=== PATIENT | male | born 1985 | race Caucasian/White ===

== ENCOUNTER 2022-10-28 07:22 | Outpatient (REF) | payer OTHER, SELFPAY ==
--- NOTE | ~2022-10-28 | XR_ITS ---
EXAMINATION: XR ANKLE, LEFT XR FOOT, LEFT XR ANKLE, RIGHT XR FOOT, RIGHT CLINICAL INFORMATION: Arthropathic psoriasis COMPARISON: None TECHNIQUE: 2 views of the left ankle. 3 views of the left foot. 2 views of the right ankle. 3 views of the right foot. FINDINGS: Left ankle: No fracture or dislocation. The ankle mortise is congruent. Mild spurring along the ankle mortise. No osseous erosion. No ankle joint effusion. Plantar heel spur. The soft tissues are unremarkable. Left foot: No fracture or dislocation. Appropriate alignment. Joint spaces maintained. No osseous erosion. The soft tissues are unremarkable. Right ankle: No fracture or dislocation. The ankle mortise is congruent. Mild spurring along the ankle mortise. No ankle joint effusion. Plantar heel spur. The soft tissues are unremarkable. Right foot: No fracture or dislocation. Joint spaces are maintained. No osseous erosion. The soft tissues are unremarkable. XR/XR foot RT min 3V IMPRESSION: No acute abnormality of either foot or ankle. No osseous erosions. Mild spurring along the ankle mortise bilaterally. Plantar heel spurs.
--- NOTE | ~2022-10-28 | XR_ITS ---
EXAMINATION: XR ANKLE, LEFT XR FOOT, LEFT XR ANKLE, RIGHT XR FOOT, RIGHT CLINICAL INFORMATION: Arthropathic psoriasis COMPARISON: None TECHNIQUE: 2 views of the left ankle. 3 views of the left foot. 2 views of the right ankle. 3 views of the right foot. FINDINGS: Left ankle: No fracture or dislocation. The ankle mortise is congruent. Mild spurring along the ankle mortise. No osseous erosion. No ankle joint effusion. Plantar heel spur. The soft tissues are unremarkable. Left foot: No fracture or dislocation. Appropriate alignment. Joint spaces maintained. No osseous erosion. The soft tissues are unremarkable. Right ankle: No fracture or dislocation. The ankle mortise is congruent. Mild spurring along the ankle mortise. No ankle joint effusion. Plantar heel spur. The soft tissues are unremarkable. Right foot: No fracture or dislocation. Joint spaces are maintained. No osseous erosion. The soft tissues are unremarkable. XR/XR foot LT min 3V IMPRESSION: No acute abnormality of either foot or ankle. No osseous erosions. Mild spurring along the ankle mortise bilaterally. Plantar heel spurs.
--- NOTE | ~2022-10-28 | XR_ITS ---
EXAMINATION: XR HAND WRIST, LEFT XR HAND WRIST, RIGHT CLINICAL INFORMATION: Arthropathic psoriasis COMPARISON: None TECHNIQUE: 4 views of the left hand and wrist. 4 views of the right hand and wrist. FINDINGS: Left hand/wrist: No fracture or dislocation. The carpal rows are well aligned. The digits are appropriately aligned. Joint spaces are maintained. No osseous erosion. The soft tissues are unremarkable. Right hand/wrist: No fracture or dislocation. The carpal rows are well aligned. The digits are appropriately aligned. Joint spaces are maintained. No osseous erosion. The soft tissues are unremarkable. XR/XR hand wrist RT IMPRESSION: Normal appearance of both hands and wrists. No osseous erosion or significant arthritic change.
--- NOTE | ~2022-10-28 | XR_ITS ---
EXAMINATION: XR KNEE, LEFT CLINICAL INFORMATION: Arthropathic psoriasis COMPARISON: None TECHNIQUE: Three views of the left knee. FINDINGS: No fracture or subluxation. Compartmental joint spaces are maintained. No joint effusion. No osseous erosion. The soft tissues are unremarkable. XR/XR knee LT 3V IMPRESSION: Normal left knee.
--- NOTE | ~2022-10-28 | XR_ITS ---
EXAMINATION: XR ANKLE, LEFT XR FOOT, LEFT XR ANKLE, RIGHT XR FOOT, RIGHT CLINICAL INFORMATION: Arthropathic psoriasis COMPARISON: None TECHNIQUE: 2 views of the left ankle. 3 views of the left foot. 2 views of the right ankle. 3 views of the right foot. FINDINGS: Left ankle: No fracture or dislocation. The ankle mortise is congruent. Mild spurring along the ankle mortise. No osseous erosion. No ankle joint effusion. Plantar heel spur. The soft tissues are unremarkable. Left foot: No fracture or dislocation. Appropriate alignment. Joint spaces maintained. No osseous erosion. The soft tissues are unremarkable. Right ankle: No fracture or dislocation. The ankle mortise is congruent. Mild spurring along the ankle mortise. No ankle joint effusion. Plantar heel spur. The soft tissues are unremarkable. Right foot: No fracture or dislocation. Joint spaces are maintained. No osseous erosion. The soft tissues are unremarkable. XR/XR ankle RT min 3V IMPRESSION: No acute abnormality of either foot or ankle. No osseous erosions. Mild spurring along the ankle mortise bilaterally. Plantar heel spurs.
--- NOTE | ~2022-10-28 | XR_ITS ---
EXAMINATION: XR ANKLE, LEFT XR FOOT, LEFT XR ANKLE, RIGHT XR FOOT, RIGHT CLINICAL INFORMATION: Arthropathic psoriasis COMPARISON: None TECHNIQUE: 2 views of the left ankle. 3 views of the left foot. 2 views of the right ankle. 3 views of the right foot. FINDINGS: Left ankle: No fracture or dislocation. The ankle mortise is congruent. Mild spurring along the ankle mortise. No osseous erosion. No ankle joint effusion. Plantar heel spur. The soft tissues are unremarkable. Left foot: No fracture or dislocation. Appropriate alignment. Joint spaces maintained. No osseous erosion. The soft tissues are unremarkable. Right ankle: No fracture or dislocation. The ankle mortise is congruent. Mild spurring along the ankle mortise. No ankle joint effusion. Plantar heel spur. The soft tissues are unremarkable. Right foot: No fracture or dislocation. Joint spaces are maintained. No osseous erosion. The soft tissues are unremarkable. XR/XR ankle LT min 3V IMPRESSION: No acute abnormality of either foot or ankle. No osseous erosions. Mild spurring along the ankle mortise bilaterally. Plantar heel spurs.
--- NOTE | ~2022-10-28 | XR_ITS ---
EXAMINATION: XR HAND WRIST, LEFT XR HAND WRIST, RIGHT CLINICAL INFORMATION: Arthropathic psoriasis COMPARISON: None TECHNIQUE: 4 views of the left hand and wrist. 4 views of the right hand and wrist. FINDINGS: Left hand/wrist: No fracture or dislocation. The carpal rows are well aligned. The digits are appropriately aligned. Joint spaces are maintained. No osseous erosion. The soft tissues are unremarkable. Right hand/wrist: No fracture or dislocation. The carpal rows are well aligned. The digits are appropriately aligned. Joint spaces are maintained. No osseous erosion. The soft tissues are unremarkable. XR/XR hand wrist LT IMPRESSION: Normal appearance of both hands and wrists. No osseous erosion or significant arthritic change.
[2022-10-28 08:31] LABS: MANUAL DIFF FLAG NO
[2022-10-28 08:53] LABS: Basophils Percent Auto 0.2 % (0-2); Eosinophils Absolute Auto 0.1 X10*3/uL (0.0-0.4); Eosinophils Percent Auto 0.7 % (0-4); Hematocrit 42.4 % (42.0-52.0); Hemoglobin 14.3 g/dl (14.0-18.0); Imm Gran Abs Auto 0.03 X10*3/uL (0.00-0.03); Imm Gran Pct Auto 0.3 % (0.0-0.4); Lymphocytes Absolute Auto 2.3 X10*3/uL (1.2-4.9); Lymphocytes Percent Auto 24.1 % (20-40); Mean Corpuscular HGB Conc 33.7 g/dl (31.0-36.0); Mean Corpuscular Volume 80.2 fL (80.0-98.0); Mean Platelet Volume 11.2 fL (9.4-12.4); Monocytes Absolute Auto 1.1 X10*3/uL (0.1-1.2); Monocytes Percent Auto 11.1 % (2-11); Neutrophils Percent Auto 63.6 % (45-73); Platelet Count 194 X10*3/uL (160-400); Red Blood Count 5.29 X10*6/uL (4.60-5.80); Red Cell Distribution Width 13.3 % (11.0-16.0); White Blood Count 9.4 X10*3/uL (4.8-10.8)
[2022-10-28 09:13] LABS: Estimated Average Glucose 105 mg/dL; Hemoglobin A1c % 5.3 %
[2022-10-28 09:25] LABS: Alanine Aminotransferase 34 U/L (0-40); Albumin Level 4.5 g/dL (3.5-5.0); Alkaline Phosphatase 95 U/L (39-117); Anion Gap 17 (12-20); Aspartate Amino Transferase 19 U/L (5-37); Bilirubin Total 1.4 mg/dL (0.0-1.0); Blood Urea Nitrogen 8 mg/dL (9-16); C Reactive Protein 4.26 mg/dL (< or = 0.50); Calcium 9.5 mg/dL (8.4-10.2); Carbon Dioxide 21 mmol/L (22-29); Chloride 107 mmol/L (96-108); Estimated Glomerular Filt Rate > 60; Glucose Random 121 mg/dL (60-115); Potassium 3.8 mmol/L (3.3-5.1); Sodium 141 mmol/L (135-145); Total Protein 7.1 g/dL (6.5-8.0)
[2022-10-29 08:09] LABS: HBc Num1 0.17 S/CO (0.00-0.79); HBsAGNum1 0.29 S/CO (0.00-0.99); Hepatitis A Antibody IgM 0.13 Index (0-0.79); Hepatitis B Core Antibody Nonreactive (Nonreactive); Hepatitis B Surface Antigen Negative (Negative); ~HepC Num1 0.31 S/CO (0.00-0.79); ~Hepatitis A Antibody IgM Nonreactive (Nonreactive); ~Hepatitis B Surface Antibody NONREACTIVE (Nonreactive); ~Hepatitis C Antibody Nonreactive (Nonreactive)
[2022-10-30 17:21] LABS: Cyclic Citrullinated Peptide <16 UNITS
[2022-10-30 17:23] LABS: IgA 105 mg/dL (47-310); IgG 1084 mg/dL (600-1640); IgM 41 mg/dL (50-300)
[2022-10-30 20:38] LABS: TS Negative Control Passed; TS Panel A 0; TS Panel B 0; TS Positive Control Passed; TSpotTB Negative (Negative)
[2022-10-31 17:24] LABS: Prot Elec - Albumin 4.3 g/dL (3.8-4.8); Prot Elec - Alpha1 0.4 g/dL (0.2-0.3); Prot Elec - Alpha2 0.9 g/dL (0.5-0.9); Prot Elec - Beta 1 0.4 g/dL (0.4-0.6); Prot Elec - Beta 2 0.3 g/dL (0.2-0.5); Prot Elec - Total Protein 7.3 g/dL (6.1-8.1)
== END 2022-10-28 07:23 | disposition home or self-care (01) ==
LOC: HO.XRAY 07:22
PROVIDERS: PCP Internal Medicine; Visit Provider Student in an Organized Health Care Education/Training Program
DX: Z11.59 Encounter for screening for other viral diseases (principal); Z13.1 Encounter for screening for diabetes mellitus; Z11.7 Encounter for testing for latent tuberculosis infection; L40.50 Arthropathic psoriasis, unspecified; M25.541 Pain in joints of right hand
CPT/HCPCS: 36415; 73110; 73130; 73562; 73610; 73630; 80053; 82784; 83036; 84165; 85025; 86140; 86200; 86334; 86481; 86704; 86706; 86709; 86803; 87340; 99202

== ENCOUNTER → 2022-12-26 08:41 | Outpatient (BNVA) | payer OTHER, SELFPAY | PROVIDERS: PCP Internal Medicine; Visit Provider Student in an Organized Health Care Education/Training Program | DX: M13.80 Other specified arthritis, unspecified site (principal); Z79.631 Long term (current) use of antimetabolite agent | CPT/HCPCS: 99212 ==

== ENCOUNTER 2023-02-11 07:03 | Outpatient (REF) | payer OTHER, SELFPAY ==
[2023-02-11 11:21] LABS: MANUAL DIFF FLAG NO
[2023-02-11 11:28] LABS: Basophils Percent Auto 0.4 % (0-2); Eosinophils Absolute Auto 0.3 X10*3/uL (0.0-0.4); Hematocrit 41.6 % (42.0-52.0); Hemoglobin 14.3 g/dl (14.0-18.0); Imm Gran Abs Auto 0.01 X10*3/uL (0.00-0.03); Imm Gran Pct Auto 0.2 % (0.0-0.4); Lymphocytes Absolute Auto 1.7 X10*3/uL (1.2-4.9); Lymphocytes Percent Auto 33.5 % (20-40); Mean Corpuscular HGB Conc 34.4 g/dl (31.0-36.0); Mean Corpuscular Hemoglobin 27.9 pg (27.0-33.0); Mean Corpuscular Volume 81.3 fL (80.0-98.0); Mean Platelet Volume 11.1 fL (9.4-12.4); Monocytes Absolute Auto 0.3 X10*3/uL (0.1-1.2); Monocytes Percent Auto 6.1 % (2-11); Neutrophils Absolute Auto 2.8 x10*3/uL (2.0-8.3); Neutrophils Percent Auto 54.8 % (45-73); Platelet Count 217 X10*3/uL (160-400); Red Blood Count 5.12 X10*6/uL (4.60-5.80); Red Cell Distribution Width 14.3 % (11.0-16.0); White Blood Count 5.1 X10*3/uL (4.8-10.8)
[2023-02-11 12:12] LABS: Erythrocyte Sedimentation Rate 18 MM/HR (0-15)
[2023-02-11 12:41] LABS: Alanine Aminotransferase 44 U/L (0-40); Albumin Level 4.4 g/dL (3.5-5.0); Alkaline Phosphatase 83 U/L (39-117); Anion Gap 14 (12-20); Aspartate Amino Transferase 23 U/L (5-37); Bilirubin Total 1.4 mg/dL (0.0-1.0); Blood Urea Nitrogen 11 mg/dL (9-16); C Reactive Protein 0.78 mg/dL (< or = 0.50); Calcium 9.3 mg/dL (8.4-10.2); Carbon Dioxide 25 mmol/L (22-29); Chloride 107 mmol/L (96-108); Estimated Glomerular Filt Rate > 60; Glucose Random 95 mg/dL (60-115); Potassium 4.1 mmol/L (3.3-5.1); Sodium 142 mmol/L (135-145)
== END 2023-02-11 07:04 | disposition home or self-care (01) ==
LOC: HO.WFDLDS 07:03
PROVIDERS: Visit Provider Student in an Organized Health Care Education/Training Program
DX: Z79.631 Long term (current) use of antimetabolite agent (principal)
CPT/HCPCS: 36415; 80053; 85025; 85652; 86140

== ENCOUNTER 2023-04-08 09:50 | Outpatient (AMB) | payer OTHER, SELFPAY ==
--- NOTE | 2023-04-08 09:55 | MHC.OFFVIS ---
Intake Vital Signs 04/08/23 09:57 Height 5 ft 10 in Weight 381 lb 2.868 oz BMI 54.7 BP 138/86 Blood Pressure Location Rt brachial Position Sitting Pulse 84 Pulse Source Pulse Oximeter Temp 98.8 F Temp Source Skin Pulse Oximetry (%) 96 Intake Visit Reasons: PSA Intake Note: Pt seen today for PsA follow up. C/o bl leg pain, left is worse sore and tender, hard to walk. Thinks he is going through flare up. States when he started chemo stuff was doing better, although it makes him nauseous and drains his energy for approx 4 days after taking it. He would like to know if you can prescribe something for the nausea. 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 Accompanied by: Self / Same As Patient Allergies diphenhydramine [From Benadryl] Allergy (Unknown, Verified 04/08/23 09:59) Unknown Medication List - Last Reconciled 04/08/23 by Donna Rodriguez MD bimatoprost 0.01% (Lumigan) 1 drp ophthalmic (eye) DAILY brimonidine 0.2% 1 drp ophthalmic-Right BID dorzolamide-timolol 22.3-6.8 mg/mL 1 drp ophthalmic (eye) BID folic acid 1 mg PO DAILY ibuprofen 200 mg PO Q6H PRN methotrexate sodium 20 mg (8 x 2.5 mg) PO QWEEK pilocarpine HCl 2% 1 drp ophthalmic (eye) QID HPI HPI Comments History of Present Illness Details 38-year-old male with seronegative arthritis returns for follow-up. States that he was doing better overall on methotrexate until last week when he developed a flare-up with pain and swelling of his wrists, fingers ankles. States that he believes methotrexate is helpful but causes nausea for 4 days. Initial history: This is a 37-year-old morbidly obese male with a past medical history of ADHD, GERD, RAFFI, schizophrenia presents for evaluation of chronic headaches and bilateral hand stiffness. Patient has had headaches for many years. He was evaluated by Neurology before and no diagnosis was reached. Patient states he has had recurrent headaches with bilateral temporal swelling for years. Over the last 2 weeks patient has noticed stiffness of both hands and reduced finger flexion bilaterally. This is associated with morning stiffness lasting 30 minutes. Patient works at [employer] and his job entails moving heavy objects. There is no history of psoriasis. Patient states he has injured his left ankle multiple times and had multiple ankle sprains and Achilles tendinitis. He also has left knee pain usually worse when he is on his feet. He takes Advil 600 mg 3 times a day on the days that his left leg bothers him. Denies history of psoriasis. No known family history of autoimmune rheumatic disease. 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[facility] [place] Reports arthralgias and Reports stiffness Physical Exam Vital Signs: Last Vital Signs Temp 98.8 F 04/08/23 09:57 Pulse 84 04/08/23 09:57 BP 138/86 04/08/23 09:57 Pulse Ox 96 04/08/23 09:57 BMI result Body Mass Index 54.7 Const General: cooperative Nutritional Appearance: obese morbidly obese Orientation/consciousness: patient oriented x3 Limitations: no limitations HEENT Head: Yes normocephalic and Yes atraumatic Mouth: moist mucous membranes Resp Effort & Inspection: normal respiratory effort and able to speak in complete sentences GI Inspection: No distended Palpation (GI): Soft to palpation and nontender Skin Other: Could not appreciate any psoriatic patches Neuro General: patient oriented x3 Extrem Other: Right wrist tenderness Right wrist pain with full flexion Left wrist tenderness Left wrist pain with full flexion No nail pitting Bilateral reduced and grip wrapper strength Left ankle tenderness anteriorly and left Achilles tendon tenderness without swelling Few tender MTPs bilaterally Results Reviewed Results Reviewed: Labs 2021 DONATO/RF negative ESR 24 Assessment & Plan Assessment & Plan (1) Seronegative arthritis: Comment: seroneg RA vs PsA Multiple tender and swollen joints and high inflammatory markers with excellent response to prednisone MTX started 01/11 caused nausea Code(s): M13.80 - Other specified arthritis, unspecified site Plan: This is a 37-year-old male with seronegative arthritis, (seronegative rheumatoid arthritis versus psA) who presents for follow-up. Patient started taking methotrexate 3 months ago which was somewhat helpful but caused persistent nausea. Patient continues to have multiple tender joints on exam. DC methotrexate. Discussed risks and benefits of TNF inhibitors. Patient agreed to proceed. Will start prior authorization for Enbrel Labs today and before next visit in 3 months Infectious screening: Hepatitis panel and T spot -ve 2022 Plan I spent 29 minutes reviewing patient's chart, evaluating patient, ordering diagnostic workup, counseling patient and documenting in the chart Orders: Orders Comprehensive Met. Panel Today M13.80 - Other specified arthritis, unspecified site C Reactive Protein Today M13.80 - Other specified arthritis, unspecified site Complete Blood Count Auto Diff Today M13.80 - Other specified arthritis, unspecified site Erythrocyte Sedimentation Rate Today M13.80 - Other specified arthritis, unspecified site Comprehensive Met. Panel 3 Months M13.80 - Other specified arthritis, unspecified site C Reactive Protein 3 Months M13.80 - Other specified arthritis, unspecified site Complete Blood Count Auto Diff 3 Months M13.80 - Other specified arthritis, unspecified site Erythrocyte Sedimentation Rate 3 Months M13.80 - Other specified arthritis, unspecified site Coding Level of Care Code Est Pt Level 4 (80290) Diagnoses Seronegative arthritis M13.80
[2023-04-08 09:57] VITALS: BP 138/86; PULSE 84; TEMP 37.1; O2SAT 96; BMI 54.7
== END 2023-04-08 10:33 | disposition home or self-care (01) ==
PROVIDERS: PCP Internal Medicine; Visit Provider Student in an Organized Health Care Education/Training Program
DX: M13.80 Other specified arthritis, unspecified site (principal)
CPT/HCPCS: 99214

== ENCOUNTER → 2023-04-08 09:50 | Outpatient (BNVA) | payer OTHER, SELFPAY | PROVIDERS: PCP Internal Medicine; Visit Provider Student in an Organized Health Care Education/Training Program | DX: M13.89 Other specified arthritis, multiple sites (principal) | CPT/HCPCS: 99212 ==

== ENCOUNTER 2023-04-08 10:38 | Outpatient (REF) | payer OTHER, SELFPAY ==
[2023-04-08 13:23] LABS: MANUAL DIFF FLAG NO
[2023-04-08 13:32] LABS: Basophils Percent Auto 0.4 % (0-2); Eosinophils Absolute Auto 0.3 X10*3/uL (0.0-0.4); Eosinophils Percent Auto 4.4 % (0-4); Hematocrit 42.1 % (42.0-52.0); Hemoglobin 14.3 g/dl (14.0-18.0); Imm Gran Abs Auto 0.03 X10*3/uL (0.00-0.03); Imm Gran Pct Auto 0.4 % (0.0-0.4); Lymphocytes Absolute Auto 2.2 X10*3/uL (1.2-4.9); Lymphocytes Percent Auto 30.6 % (20-40); Mean Corpuscular Hemoglobin 28.4 pg (27.0-33.0); Mean Corpuscular Volume 83.7 fL (80.0-98.0); Monocytes Absolute Auto 0.5 X10*3/uL (0.1-1.2); Monocytes Percent Auto 6.9 % (2-11); Neutrophils Absolute Auto 4.1 x10*3/uL (2.0-8.3); Neutrophils Percent Auto 57.3 % (45-73); Platelet Count 264 X10*3/uL (160-400); Red Blood Count 5.03 X10*6/uL (4.60-5.80); Red Cell Distribution Width 13.9 % (11.0-16.0); White Blood Count 7.1 X10*3/uL (4.8-10.8)
[2023-04-08 14:21] LABS: Erythrocyte Sedimentation Rate 16 MM/HR (0-15)
[2023-04-09 01:53] LABS: Alanine Aminotransferase 32 U/L (0-40); Albumin Level 4.5 g/dL (3.5-5.0); Alkaline Phosphatase 81 U/L (39-117); Anion Gap 11 (12-20); Aspartate Amino Transferase 22 U/L (5-37); Blood Urea Nitrogen 9 mg/dL (9-16); C Reactive Protein 0.76 mg/dL (< or = 0.50); Calcium 9.3 mg/dL (8.4-10.2); Carbon Dioxide 26 mmol/L (22-29); Chloride 107 mmol/L (96-108); Estimated Glomerular Filt Rate > 60; Glucose Random 85 mg/dL (60-115); Potassium 4.1 mmol/L (3.3-5.1); Sodium 140 mmol/L (135-145); Total Protein 7.2 g/dL (6.5-8.0)
== END 2023-04-08 10:39 | disposition home or self-care (01) ==
LOC: HO.10HDL 10:38
PROVIDERS: Visit Provider Student in an Organized Health Care Education/Training Program
DX: M13.80 Other specified arthritis, unspecified site (principal); E66.01 Morbid (severe) obesity due to excess calories; R51.9 Headache, unspecified; M79.642 Pain in left hand; M79.641 Pain in right hand; Z12.5 Encounter for screening for malignant neoplasm of prostate; Z79.899 Other long term (current) drug therapy
CPT/HCPCS: 36415; 80053; 85025; 85652; 86140

== ENCOUNTER 2023-04-17 10:04 | Outpatient (AMB) | payer OTHER, SELFPAY ==
--- NOTE | 2023-04-17 10:17 | AM.OFFVISNUR ---
Intake Intake Visit Reasons: PSA/Enbrel teaching Allergies diphenhydramine [From Benadryl] Allergy (Unknown, Verified 04/08/23 09:59) Unknown Nursing Note Patient here for Enbrel teaching. Patient instructed on how to self administer Enbrel. Patient self administered Enbrel on L thigh. He has no questions or concerns at this time. Office Meds etanercept Performing Provider: Donna Rodriguez MD Administered by: Darby Yarbrough RN on 04/17/23 11:17 Dose Route Admin Location Lot Number Expiration Date NDC Knocker Out 50 mg subcut L thigh Coding Level of Care Code Est Pt Level 1 (30299) Diagnoses Assessment & Plan Assessment & Plan Orders: Orders AMB Etanercept Injection Patient Supplied Today M13.80 - Other specified arthritis, unspecified site
== END 2023-04-17 10:32 | disposition home or self-care (01) ==
PROVIDERS: PCP Internal Medicine; Visit Provider Student in an Organized Health Care Education/Training Program
DX: M13.80 Other specified arthritis, unspecified site (principal)
CPT/HCPCS: J1438

== ENCOUNTER → 2023-04-17 10:04 | Outpatient (BNVA) | payer OTHER, SELFPAY | PROVIDERS: PCP Internal Medicine; Visit Provider Student in an Organized Health Care Education/Training Program | DX: M13.80 Other specified arthritis, unspecified site (principal) | CPT/HCPCS: 96372; 99211 ==

== ENCOUNTER 2023-07-04 08:58 | Outpatient (REF) | payer OTHER, SELFPAY ==
[2023-07-04 09:34] LABS: MANUAL DIFF FLAG NO
[2023-07-04 10:08] LABS: Alanine Aminotransferase 34 U/L (0-40); Albumin Level 4.3 g/dL (3.5-5.0); Alkaline Phosphatase 71 U/L (39-117); Anion Gap 14 (12-20); Aspartate Amino Transferase 24 U/L (5-37); Blood Urea Nitrogen 9 mg/dL (9-16); C Reactive Protein 0.51 mg/dL (< or = 0.50); Calcium 9.5 mg/dL (8.4-10.2); Carbon Dioxide 23 mmol/L (22-29); Chloride 106 mmol/L (96-108); Estimated Glomerular Filt Rate > 60; Glucose Random 135 mg/dL (60-115); Potassium 3.8 mmol/L (3.3-5.1); Sodium 139 mmol/L (135-145); Total Protein 7.1 g/dL (6.5-8.0)
[2023-07-04 10:22] LABS: Eosinophils Percent Auto 0.2 % (0-4); Hematocrit 41.6 % (42.0-52.0); Hemoglobin 14.3 g/dl (14.0-18.0); Imm Gran Abs Auto 0.01 X10*3/uL (0.00-0.03); Imm Gran Pct Auto 0.2 % (0.0-0.4); Lymphocytes Absolute Auto 1.9 X10*3/uL (1.2-4.9); Lymphocytes Percent Auto 40.7 % (20-40); Mean Corpuscular HGB Conc 34.4 g/dl (31.0-36.0); Mean Corpuscular Hemoglobin 27.4 pg (27.0-33.0); Mean Corpuscular Volume 79.8 fL (80.0-98.0); Mean Platelet Volume 13.5 fL (9.4-12.4); Monocytes Absolute Auto 0.3 X10*3/uL (0.1-1.2); Monocytes Percent Auto 7.5 % (2-11); Neutrophils Absolute Auto 2.3 x10*3/uL (2.0-8.3); Neutrophils Percent Auto 51.4 % (45-73); Platelet Count 181 X10*3/uL (160-400); Red Blood Count 5.21 X10*6/uL (4.60-5.80); Red Cell Distribution Width 13.2 % (11.0-16.0); White Blood Count 4.6 X10*3/uL (4.8-10.8)
[2023-07-04 10:48] LABS: Erythrocyte Sedimentation Rate 9 MM/HR (0-15)
== END 2023-07-04 08:59 | disposition home or self-care (01) ==
LOC: HO.LAB 08:58
PROVIDERS: Visit Provider Student in an Organized Health Care Education/Training Program
DX: M13.80 Other specified arthritis, unspecified site (principal)
CPT/HCPCS: 36415; 80053; 85025; 85652; 86140

== ENCOUNTER 2023-07-09 10:00 | Outpatient (AMB) | payer OTHER, SELFPAY ==
--- NOTE | 2023-07-09 10:02 | MHC.OFFVIS ---
Intake Vital Signs 07/09/23 10:03 Height 5 ft 10 in BP 132/86 Blood Pressure Location Rt brachial Position Sitting Pulse 88 Pulse Source Pulse Oximeter Pulse Oximetry (%) 96 Oxygen Delivery Method Room Air Intake Visit Reasons: RA Intake Note: Pt presents today for follow up and test results. Failed MTX, on Enbrel. Patient c/o upper left leg pain. 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 by: Self / Same As Patient Allergies diphenhydramine [From Benadryl] Allergy (Unknown, Verified 07/09/23 10:07) Unknown methotrexate Adverse Reaction (Severe, Verified 07/09/23 10:07) Nausea Medication List - Last Reconciled 07/09/23 by Donna Rodriguez MD bimatoprost 0.01% (Lumigan) 1 drp ophthalmic (eye) DAILY brimonidine 0.2% 1 drp ophthalmic-Right BID dorzolamide-timolol 22.3-6.8 mg/mL 1 drp ophthalmic (eye) BID etanercept (Enbrel SureClick) 50 mg subcut QWEEK ibuprofen 200 mg PO Q6H PRN methotrexate sodium 20 mg (8 x 2.5 mg) PO QWEEK pilocarpine HCl 2% 1 drp ophthalmic (eye) QID HPI HPI Comments History of Present Illness Details 38-year-old male with seronegative arthritis returns for follow-up. Has been on the Enbrel for 3 months now. States that the pain in his fingers, hands, feet, ankles is much better overall. However over the last 1-2 weeks he has been having severe pain in the back of his left thigh. The pain is so severe that he had to leave work yesterday. Difficulty walking. He has been taking Tylenol with some relief. Per patient ibuprofen does not provide much relief. Initial history: This is a 37-year-old morbidly obese male with a past medical history of ADHD, GERD, RAFFI, schizophrenia presents for evaluation of chronic headaches and bilateral hand stiffness. Patient has had headaches for many years. He was evaluated by Neurology before and no diagnosis was reached. Patient states he has had recurrent headaches with bilateral temporal swelling for years. Over the last 2 weeks patient has noticed stiffness of both hands and reduced finger flexion bilaterally. This is associated with morning stiffness lasting 30 minutes. Patient works at [employer] and his job entails moving heavy objects. There is no history of psoriasis. Patient states he has injured his left ankle multiple times and had multiple ankle sprains and Achilles tendinitis. He also has left knee pain usually worse when he is on his feet. He takes Advil 600 mg 3 times a day on the days that his left leg bothers him. Denies history of psoriasis. No known family history of autoimmune rheumatic disease. 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 [employer] Reports abnormal gait, Reports back pain, Reports arthralgias, Reports limited range of motion and Reports stiffness Neuro Reports abnormal gait Physical Exam Vital Signs: Last Vital Signs Pulse 88 07/09/23 10:03 BP 132/86 07/09/23 10:03 Pulse Ox 96 07/09/23 10:03 Oxygen Delivery Method Room Air 07/09/23 10:03 Const General: cooperative Nutritional Appearance: obese morbidly obese Orientation/consciousness: patient oriented x3 Limitations: no limitations HEENT Head: Yes normocephalic and Yes atraumatic Mouth: moist mucous membranes Resp Effort & Inspection: normal respiratory effort and able to speak in complete sentences GI Inspection: No distended Palpation (GI): Soft to palpation and nontender Skin Other: Could not appreciate any psoriatic patches Neuro General: patient oriented x3 Extrem Other: No active synovitis today Negative MTP and negative MCP squeeze test bilaterally Tenderness to palpation of the posterior aspect of his left knee. Left buttock tenderness Significantly antalgic gait Results Reviewed Results Reviewed: Labs 2021 DONATO/RF negative ESR 24 Assessment & Plan Assessment & Plan (1) Seronegative arthritis: Comment: seroneg RA vs PsA Multiple tender and swollen joints and high inflammatory markers with excellent response to prednisone MTX started 01/11 effective but caused nausea DC 04/12 Enbrel 04/12 effective Code(s): M13.80 - Other specified arthritis, unspecified site Plan: This is a 38-year-old male with seronegative arthritis, (seronegative rheumatoid arthritis versus psA) who presents for follow-up. On Enbrel since last visit with resolution of his synovitis. Inflammatory markers normalized. Continue Enbrel 50 mg subcu once weekly Labs before next visit in 3 months Infectious screening: Hepatitis panel and T spot -ve 2022 (2) Left thigh pain: Code(s): M79.652 - Pain in left thigh Plan: Abrupt onset of severe left thigh pain, posteriorly, tenderness to palpation and some warmth just behind the left knee as well as left buttock pain. Ddx sciatica versus pyriformis versus ruptured Christine cyst or tendinitis, less likely inflammatory in nature as patient's inflammatory markers have normalized. Patient is in significant pain and distress. Can barely walk. Needs to go to the emergency room for evaluation. Will send patient to the ED Plan I spent 25 minutes reviewing patient's chart, evaluating patient, ordering diagnostic workup, counseling patient and documenting in the chart Coding Level of Care Code Est Pt Level 4 (58159) Diagnoses Seronegative arthritis M13.80 Left thigh pain M79.652
[2023-07-09 10:03] VITALS: BP 132/86; PULSE 88; O2SAT 96
== END 2023-07-09 10:41 | disposition home or self-care (01) ==
PROVIDERS: PCP Internal Medicine; Visit Provider Student in an Organized Health Care Education/Training Program
DX: M13.80 Other specified arthritis, unspecified site (principal); M79.652 Pain in left thigh
CPT/HCPCS: 99214

== ENCOUNTER → 2023-07-09 10:00 | Outpatient (BNVA) | payer OTHER, SELFPAY | PROVIDERS: PCP Internal Medicine; Visit Provider Student in an Organized Health Care Education/Training Program | DX: M13.80 Other specified arthritis, unspecified site (principal); M79.652 Pain in left thigh | CPT/HCPCS: 99212 ==

== ENCOUNTER 2023-07-09 10:46 | Emergency (ER) | payer OTHER, SELFPAY ==
--- NOTE | ~2023-07-09 | US_ITS ---
EXAMINATION: US VENOUS ULTRASOUND WITH DOPPLER LOWER EXTREMITY, LEFT CLINICAL INFORMATION: Left leg pain COMPARISON: None available. TECHNIQUE: Ultrasound of the deep veins is performed from the hip to the calf with compression sonography and color and pulse Doppler assessment. Spectral analysis with color-flow imaging is performed. FINDINGS: There is normal venous compression and respiratory variation and augmented flow. The visualized common femoral vein, superficial femoral vein, profunda femoral vein, popliteal vein, and the trifurcation region shows no evidence of deep venous thrombosis. US/US venous duplex LE LT IMPRESSION: No DVT demonstrated in the left lower extremity.
--- NOTE | 2023-07-09 11:57 | ED_ITS ---
HPI - General Adult General Chief complaint: Extremity Problem Stated complaint: unable to stand or walk Time Seen by Provider: 07/09/23 13:18 Source: patient Mode of arrival: ambulatory Limitations: no limitations History of Present Illness HPI narrative: Patient is a 38-year-old male with history of Schizophrenia, ADHD, obesity, GERD, anemia, sleep apnea, migraines presenting to the emergency department with complaint left posterior thigh pain for the past several weeks. Reports that the pain is intermittent. Describes the pain as spasming sensation. Reports times pain is so severe that he has difficulty with ambulation. Reports that he has been treating his symptoms with R.I.C.E. Reports family history blood clots, denies personal history. Denies any precipitating fall or other trauma. Denies any numbness or tingling to the area. Has been using Tylenol and ibuprofen with little relief. MD complaint: Left upper leg pain Onset (ago): week(s) Location: left and lower extremity Radiation: non-radiation Severity: severe Quality: sharp Pain Consistency: intermittent Relieving factors: rest Exacerbating factors: movement Associated symptoms: denies other symptoms Treatments prior to arrival: cold therapy Related Data Home Medications Medication Instructions Recorded Confirmed bimatoprost 0.01 % eye drops 1 drp ophthalmic (eye) DAILY 10/06/22 (Kelvin) ibuprofen 200 mg tablet 200 mg PO Q6H PRN 10/06/22 dorzolamide 22.3 mg-timolol 6.8 1 drp ophthalmic (eye) BID 12/26/22 mg/mL eye drops brimonidine 0.2 % eye drops 1 drp ophthalmic-Right BID 04/08/23 pilocarpine HCl 2 % eye drops 1 drp ophthalmic (eye) QID 04/08/23 Previous Rx's Medication Instructions Recorded methotrexate sodium 2.5 mg tablet 20 mg (8 x 2.5 mg) PO QWEEK #64 03/31/23 tabs etanercept 50 mg/mL (1 mL) 50 mg subcut QWEEK #4 mL 07/03/23 subcutaneous pen injector (Enbrel Javier) cyclobenzaprine 5 mg tablet 5 mg PO TID PRN muscle spasm #10 07/09/23 tabs Allergies Allergy/AdvReac Type Severity Reaction Status Date / Time diphenhydramine Allergy Unknown Unknown Verified 07/09/23 10:07 [From Benadryl] methotrexate AdvReac Severe Nausea Verified 07/09/23 10:07 Review of Systems 2 Review of Systems: As per HPI. Yes all other systems are reviewed and are negative Constitutional: Constitutional: Reports as per HPI [facility] Past Medical History Medical History Schizophrenia ADHD Morbid obesity GERD (gastroesophageal reflux disease) Iron deficiency anemia Sleep apnea Migraines Surgical History History of tonsillectomy and adenoidectomy Family History Family History Mother OCD (obsessive compulsive disorder) Father Diabetes Social History Social History Household Members Other:: Lives with parents Housing: House Alcohol intake: never Patient Tobacco Use Status: Never used Tobacco Smoked in Last 30 Days: No e-Cigarette/Vaping Use: Never Used Use of substances other than those prescribed or required for medical reasons: Yes Substance Use Type: Marijuana Advance Directives: No service: No Current occupational status: employed 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 Blood pressure elevated. Heart rate normal. Respiratory rate normal. Temperature normal. Oxygen saturation normal. Const General: cooperative, healthy appearing and no acute distress Orientation/consciousness: oriented to person, oriented to place, oriented to time and patient oriented x3 Limitations: no limitations [facility] Head: Yes normocephalic and Yes atraumatic Ears: external ears normal General nose exam: Normal external nose present Face and sinus: Yes face symmetric Mouth: oropharynx normal and moist mucous membranes Throat: Yes uvula midline Eyes Pupils: Equal, round and reactive pupils present Neck Neck: Yes normal visual inspection and Yes supple Resp Effort & Inspection: normal respiratory effort and able to speak in complete sentences Auscultation: clear to auscultation bilaterally Cardio Rate: regular rate Rhythm: regular rhythm Heart sounds: S1 normal heart sound present and S2 normal heart sound present GI Palpation (GI): Soft to palpation and nontender Auscultation: normoactive bowel sounds General: Yes no CVA tenderness Back/Spine/Pelvis Back: no CVA tenderness Skin General skin exam: elasticity normal and turgor normal Neuro General: oriented to person, oriented to place, oriented to time, patient oriented x3, tone normal, moves all extremities, Normal light touch and pain sensation, no focal motor deficits, CN's II-XI intact bilaterally and deep tendon reflexes 2+ bilaterally Cranial nerves: Yes Equal, round and reactive pupils present Cognition (Neuro): normal cognition Gait exam (Neuro): Normal gait present Motor exam (neuro): 5/5 motor strength present throughout, Normal motor muscle tone present throughout and Motor abnormalities not present Sensory Exam: Normal double simultaneous stimulation for sensation Extrem General: Yes full ROM, Yes no pedal edema and Yes no calf tenderness Left lower extremity: hip/thigh Details: normal to inspection, tenderness Location: of the mid upper leg Location: posteriorly and normal ROM; no ecchymosis and no unusual warmth and foot Details: vascular exam Details: dorsalis pedis pulse present, posterior tibial pulse present and normal capillary refill Psych Mental Status: mental status grossly normal Affect: normal affect Thought process: Normal thought process present Course Course Course Narrative: RME: 38yo M w/PMHx Schizophrenia, ADHD, obesity, GERD, anemia, sleep apnea, migraines, c/o intermittent LLE painful spasming w/difficulty walking x few weeks worsening over the past week. Admits sx last a few minutes to an hour. 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 denies fall, injury, incontinence/retention Labs, US ordered Full HPI, ROS and PE to be performed by primary ED provider. Medical Decision Making Medical Decision Making MDM Narrative: Patient is a 38-year-old male with history of Schizophrenia, ADHD, obesity, GERD, anemia, sleep apnea, migraines presenting to the emergency department with complaint left posterior thigh pain for the past several weeks. On exam patient is awake, A+Ox3, BP elevated, VS otherwise WNL, afebrile, normal neurological exam without focal deficits, physical exam findings as above. Given reported symptoms and physical exam findings, initial differential includes muscle strain, muscle spasm, electrolyte abnormality, DVT. Labs notable for no leukocytosis, no significant electrolyte abnormalities. Ultrasound notable for no evidence of DVT. My interpretation is in agreement with the radiologist's interpretation. All results discussed with patient all questions answered. Discussed with patient that symptoms are likely related to muscle strain or spasm. Will prescribe short course of cyclobenzaprine. Advised patient to continue alternating Tylenol and ibuprofen, can also apply warm compresses intermittently throughout the day. Instructed patient to follow-up with primary care provider. Return precautions discussed at bedside. Patient dry heaving at time of discharge, states that he has not eaten today and he frequently becomes nauseated when he has not eaten. ODT Zofran ordered. Patient verbalized understanding of and agreement with plan. Differential Diagnosis Differential Diagnoses: The differential diagnosis associated with the presentation includes As per [facility]. Lab Data [facility] Lab Attestation statement: I reviewed the patient's lab results. As per [facility]. 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 Gran % (Auto) 0.2 (0.0-0.4) % Neut % (Auto) 47.9 (45-73) % Lymph % (Auto) 41.7 H (20-40) % [place] % (Auto) 9.6 (2-11) % Eos % (Auto) 0.4 (0-4) % Baso % (Auto) 0.2 (0-2) % Lymph # (Auto) 2.1 (1.2-4.9) X10*3/uL [place] # (Auto) 0.5 (0.1-1.2) X10*3/uL Eos # (Auto) 0.0 (0.0-0.4) X10*3/uL Baso # (Auto) 0.0 (0.0-0.2) X10*3/uL Abs Immat Gran (auto) 0.01 (0.00-0.03) X10*3/uL Absolute Neuts (auto) 2.5 (2.0-8.3) x10*3/uL Absolute Nucleated RBC 0.000 (0.0-0.012) X10*3/uL Nucleated RBC % (auto) 0.0 (0.0-0.2) /100WBC PT 11.1 (11.1-13.3) SEC INR 0.9 (0.9-1.1) Sodium 139 (135-145) mmol/L Potassium 3.7 (3.3-5.1) mmol/L Chloride 107 (96-108) mmol/L Carbon Dioxide 23 (22-29) mmol/L Anion Gap 13 (12-20) BUN 9 (9-16) mg/dL Creatinine 0.69 (0.5-1.4) mg/dL Estim Creat Clear Calc 229.6 Estimated GFR > 60 Random Glucose 104 (60-115) mg/dL Calcium 9.2 (8.4-10.2) mg/dL Magnesium 2.1 (1.6-2.6) mg/dL Total Bilirubin 0.8 (0.0-1.0) mg/dL Direct Bilirubin 0.3 (0.0-0.5) mg/dL AST 35 (5-37) U/L ALT 50 H (0-40) U/L Alkaline Phosphatase 73 (39-117) U/L Total Protein 7.2 (6.5-8.0) g/dL Albumin 4.2 (3.5-5.0) g/dL Independent Interpretation I performed an independent interpretation of an: Ultrasound Interpretation: No evidence Radiology Impression Discussion of test interpretation with radiology: I have reviewed the radiologist's reading. Radiologist Impression: US/US venous duplex LE LT IMPRESSION: No DVT demonstrated in the left lower extremity. External Record Review External record reviewed: Inpatient record, Office record and Outpatient record Prescription Management I considered prescription management with: Other Discharge Plan Discharge Clinical Impression: Muscle spasm of left lower extremity Patient Disposition: Home, Self-Care Instructions: Leg Cramps (ED), Muscle Spasm (ED) Additional Instructions: You have been evaluated in the emergency department today for left leg pain. Your evaluation did not find evidence of medical conditions requiring emergent intervention at this time. Please rest, ice, and elevate your leg, and resume normal activities as tolerated. You can also apply heat to your leg several times throughout the day, alternating with ice. We recommend you take 600mg ibuprofen every 6 hours or 650mg Tylenol every 6 hours as needed for pain. If needed you can alternate these medications as they take 1 medication every 3 hours. For instance at noon take ibuprofen, then at 3:00 p.m. take Tylenol, then at 6:00 p.m. take ibuprofen. You are also being prescribed cyclobenzaprine which is a muscle relaxer, you can take this medication up to every 8 hours as needed. Please schedule an appointment for follow-up with your primary care provider this week. Return to the emergency department if you experience worsening pain, numbness, tingling, change of color in your leg, or any other concerning symptoms. Prescriptions: New cyclobenzaprine 5 mg tablet 5 mg PO TID PRN (Reason: muscle spasm) Qty: 10 0RF No Action methotrexate sodium 2.5 mg tablet 20 mg PO QWEEK Qty: 64 0RF Enbrel SureClick 50 mg/mL (1 mL) pen injector 50 mg subcut QWEEK Qty: 4 2RF ibuprofen 200 mg tablet 200 mg PO Q6H PRN Lumigan 0.01 % drops 1 drp ophthalmic (eye) DAILY dorzolamide-timolol 22.3-6.8 mg/mL drops 1 drp ophthalmic (eye) BID pilocarpine HCl 2 % drops 1 drp ophthalmic (eye) QID brimonidine 0.2 % drops 1 drp ophthalmic-Right BID
[2023-07-09 11:59] VITALS: BP 164/65; PULSE 86; RESP 18; TEMP 36.7; O2SAT 96; BMI 53.8
[2023-07-09 12:20] LABS: MANUAL DIFF FLAG NO
[2023-07-09 12:33] LABS: INTERNATIONAL NORM RATIO 0.9 (0.9-1.1); Prothrombin Time 11.1 SEC (11.1-13.3)
[2023-07-09 12:38] LABS: Alanine Aminotransferase 50 U/L (0-40); Albumin Level 4.2 g/dL (3.5-5.0); Alkaline Phosphatase 73 U/L (39-117); Anion Gap 13 (12-20); Aspartate Amino Transferase 35 U/L (5-37); Basophils Percent Auto 0.2 % (0-2); Bilirubin Direct 0.3 mg/dL (0.0-0.5); Bilirubin Total 0.8 mg/dL (0.0-1.0); Blood Urea Nitrogen 9 mg/dL (9-16); Calcium 9.2 mg/dL (8.4-10.2); Carbon Dioxide 23 mmol/L (22-29); Chloride 107 mmol/L (96-108); Creatinine Clr Calc Pharmacy 229.6; Eosinophils Percent Auto 0.4 % (0-4); Estimated Glomerular Filt Rate > 60; Glucose Random 104 mg/dL (60-115); Hematocrit 41.3 % (42.0-52.0); Hemoglobin 14.4 g/dl (14.0-18.0); Imm Gran Abs Auto 0.01 X10*3/uL (0.00-0.03); Imm Gran Pct Auto 0.2 % (0.0-0.4); Lymphocytes Absolute Auto 2.1 X10*3/uL (1.2-4.9); Lymphocytes Percent Auto 41.7 % (20-40); Magnesium 2.1 mg/dL (1.6-2.6); Mean Corpuscular HGB Conc 34.9 g/dl (31.0-36.0); Mean Corpuscular Hemoglobin 27.7 pg (27.0-33.0); Mean Corpuscular Volume 79.4 fL (80.0-98.0); Monocytes Absolute Auto 0.5 X10*3/uL (0.1-1.2); Monocytes Percent Auto 9.6 % (2-11); Neutrophils Absolute Auto 2.5 x10*3/uL (2.0-8.3); Neutrophils Percent Auto 47.9 % (45-73); Potassium 3.7 mmol/L (3.3-5.1); Red Cell Distribution Width 13.3 % (11.0-16.0); Sodium 139 mmol/L (135-145); Total Protein 7.2 g/dL (6.5-8.0); White Blood Count 5.1 X10*3/uL (4.8-10.8)
[2023-07-09 15:10] VITALS: PULSE 84; O2SAT 96
[2023-07-09] MEDS: Ondansetron ODT 4 MG TAB.RAPDIS TRANSLINGU (15:16)
== END 2023-07-09 15:26 | disposition home or self-care (01) ==
PROVIDERS: Physician Assistant; Emergency Provider Emergency Medicine Emergency Medical Services; PCP Internal Medicine
DX: M62.838 Other muscle spasm (principal); M79.605 Pain in left leg; E66.8 Other obesity; Z68.43 Body mass index [BMI] 50.0-59.9, adult; F12.90 Cannabis use, unspecified, uncomplicated; Z79.631 Long term (current) use of antimetabolite agent; Z79.899 Other long term (current) drug therapy
CPT/HCPCS: 36415; 80048; 80076; 83735; 85025; 85610; 93971; 99284

== ENCOUNTER 2023-08-27 15:25 | Outpatient (REF) | payer OTHER, SELFPAY ==
--- NOTE | ~2023-08-27 | XR_ITS ---
EXAMINATION: XR LUMBOSACRAL SPINE WITH OBLIQUES CLINICAL INFORMATION: Strain of muscle, fascia and tendon of lower back. Pain. COMPARISON: None available. TECHNIQUE: AP, both oblique, and lateral views of the lumbar spine. Lateral view of the lumbosacral junction. FINDINGS: There is normal lumbar lordosis. The vertebral heights, alignment and disc heights are normal. There is no pars defect or listhesis. No visible acute fracture, dislocation or subluxation seen. SI joints are symmetrical and normal.. The sacrum appears unremarkable. There is posterior coccygeal displacement in relation to sacrum likely old injury. XR/XR lumbar spine 4V min IMPRESSION: Unremarkable lumbar spine exam. No visible acute fracture, dislocation or subluxation seen.
== END 2023-08-27 15:26 | disposition home or self-care (01) ==
LOC: HO.XRAY 15:25
PROVIDERS: PCP Internal Medicine; Visit Provider Student in an Organized Health Care Education/Training Program
DX: S39.012A Strain of muscle, fascia and tendon of lower back, initial encounter (principal); M13.80 Other specified arthritis, unspecified site
CPT/HCPCS: 72110; 99212

== ENCOUNTER 2023-08-27 15:25 | Outpatient (AMB) | payer OTHER, SELFPAY ==
--- NOTE | 2023-08-27 15:26 | A.OFFVIS_ITS ---
Intake Vital Signs 08/27/23 15:27 Height 5 ft 10 in Weight 402 lb 9.025 oz BMI 57.8 BP 114/70 Blood Pressure Location Lt radial Position Sitting Pulse 74 Pulse Source Pulse Oximeter Temp 97 F Temp Source Skin Pulse Oximetry (%) 98 Oxygen Delivery Method Room Air Intake Visit Reasons: Increased pain Intake Note: Patient presents today c/o low back pain and left leg pain. 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 Accompanied by: Self / Same As Patient Allergies diphenhydramine [From Benadryl] Allergy (Unknown, Verified 08/27/23 15:27) Unknown methotrexate Adverse Reaction (Severe, Verified 08/27/23 15:27) Nausea Medication List - Last Reconciled 08/27/23 by Donna Rodriguez MD bimatoprost 0.01% (Lumigan) 1 drp ophthalmic (eye) DAILY brimonidine 0.2% 1 drp ophthalmic-Right BID cyclobenzaprine 5 mg PO TID PRN dorzolamide-timolol 22.3-6.8 mg/mL 1 drp ophthalmic (eye) BID etanercept (Enbrel SureClick) 50 mg subcut QWEEK ibuprofen 200 mg PO Q6H PRN pilocarpine HCl 2% 1 drp ophthalmic (eye) QID HPI HPI Comments History of Present Illness Details 38-year-old male with seronegative arthr itis returns for an urgent visit. Two weeks ago there was a ball on the stairs, patient slipped, he did not fall or have any trauma but feels that he might have twisted his back. Since then he has been having lower central back pain that intermittently radiates to the right and left lower extremities. He has been using ibuprofen 600 mg once daily, cyclobenzaprine nightly, heating pad, cooling pads and lidocaine spray without much relief. His joint pain otherwise is controlled on Enbrel Initial history: This is a 37-year-old morbidly obese male with a past medical history of ADHD, GERD, RAFFI, schizophrenia presents for evaluation of chronic headaches and bilateral hand stiffness. Patient has had headaches for many years. He was evaluated by Neurology before and no diagnosis was reached. Patient states he has had recurrent headaches with bilateral temporal swelling for years. Over the last 2 weeks patient has noticed stiffness of both hands and reduced finger flexion bilaterally. This is associated with morning stiffness lasting 30 minutes. 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 There is no history of psoriasis. Patient states he has injured his left ankle multiple times and had multiple ankle sprains and Achilles tendinitis. He also has left knee pain usually worse when he is on his feet. He takes Advil 600 mg 3 times a day on the days that his left leg bothers him. Denies history of psoriasis. No known family history of autoimmune rheumatic disease. 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 [employer] Review of Systems Musc Reports abnormal gait, Reports back pain, Reports arthralgias, Reports radiating pain into limb and Reports stiffness Neuro Reports abnormal gait Physical Exam Vital Signs: Last Vital Signs Temp 97 F 08/27/23 15:27 Pulse 74 08/27/23 15:27 BP 114/70 08/27/23 15:27 Pulse Ox 98 08/27/23 15:27 Oxygen Delivery Method Room Air 08/27/23 15:27 BMI result Body Mass Index 57.8 Const General: cooperative Nutritional Appearance: obese morbidly obese Orientation/consciousness: patient oriented x3 Limitations: no limitations HEENT Head: Yes normocephalic and Yes atraumatic Mouth: moist mucous membranes Resp Effort & Inspection: normal respiratory effort and able to speak in complete sentences GI Inspection: No distended Palpation (GI): Soft to palpation and nontender Skin Other: Could not appreciate any psoriatic patches Neuro General: patient oriented x3 Extrem Other: Significantly antalgic gait No active synovitis today Negative MTP and negative MCP squeeze test bilaterally Tenderness to palpation of the L spine vertebrae Positive straight leg raise test bilaterally Results Reviewed Results Reviewed: Labs 2022 DONATO/RF negative ESR 24 Assessment & Plan Assessment & Plan (1) Seronegative arthritis: Comment: seroneg RA vs PsA Multiple tender and swollen joints and high inflammatory markers with excellent response to prednisone MTX started 01/11 effective but caused nausea DC 04/12 Enbrel 04/12 effective Code(s): M13.80 - Other specified arthritis, unspecified site Plan: This is a 38-year-old male with seronegative arthritis, (seronegative rheumatoid arthritis versus psA) who presents for follow-up. On Enbrel since last visit with resolution of his synovitis. Inflammatory markers normalized. Continue Enbrel 50 mg subcu once weekly Labs before next visit in 3 months Infectious screening: Hepatitis panel and T spot -ve 2022 (2) Lumbar strain: Code(s): S39.012A - Strain of muscle, fascia and tendon of lower back, initial encounter Qualifiers: Encounter type: initial encounter Qualified Code(s): S39.012A - Strain of muscle, fascia and tendon of lower back, initial encounter Plan: Two weeks ago patient slipped on a ball on the stairs and twisted his back. Since then has been having lower back pain with intermittent radiation to his lower extremity, he has positive straight leg raise test bilaterally. Patient's back pain is quite severe and is walking with significant difficulty. Lumbar muscle strain versus herniated disc. Will start with L-spine x-ray. If negative, will order MRI L-spine Advised patient to discontinue ibuprofen and start taking naproxen 500 mg Twice daily. Excuse letter written to employer. Plan I spent 45 minutes reviewing patient's chart, evaluating patient, ordering diagnostic workup, counseling patient, writing letters to employer and documenting in the chart Orders: Orders XR lumbar spine 4V min Today S39.012A - Strain of muscle, fascia and tendon of lower back, initial encounter Medications: New naproxen 500 mg PO Q12H 60 tabs 0RF Coding Level of Care Code Est Pt Level 5 (49035) Diagnoses Seronegative arthritis M13.80 Strain of lumbar region, initial encounter S39.012A Encounter type: initial encounter
[2023-08-27 15:27] VITALS: BP 114/70; PULSE 74; TEMP 36.1; O2SAT 98; BMI 57.8
== END 2023-08-27 16:08 | disposition home or self-care (01) ==
LOC: HO.RHE 15:25
PROVIDERS: PCP Internal Medicine; Visit Provider Student in an Organized Health Care Education/Training Program
DX: M06.09 Rheumatoid arthritis without rheumatoid factor, multiple sites (principal); M13.80 Other specified arthritis, unspecified site; S39.012A Strain of muscle, fascia and tendon of lower back, initial encounter
CPT/HCPCS: 99215

== ENCOUNTER 2023-09-24 14:29 | Outpatient (AMB) | payer OTHER, SELFPAY ==
[2023-09-24 14:36] VITALS: BP 130/78; PULSE 106; TEMP 36.4; O2SAT 96
--- NOTE | 2023-09-24 14:36 | MHC.OFFVIS ---
Intake Vital Signs 09/24/23 14:36 Height 5 ft 10 in BP 130/78 Blood Pressure Location Rt brachial Position Sitting Pulse 106 H Pulse Source Pulse Oximeter Temp 97.6 F Temp Source Skin Pulse Oximetry (%) 96 Oxygen Delivery Method Room Air Intake Visit Reasons: PsA Intake Note: Pt last seen 08/27/23 presents today for follow up and test results. Still hurting, still using the cart; reports significant ambulating issues. Uses CBD for pain. Uses ankle and knee supports, but does not wear regularly. 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 Accompanied by: Self / Same As Patient Allergies diphenhydramine [From Benadryl] Allergy (Unknown, Verified 09/24/23 14:41) Unknown methotrexate Adverse Reaction (Severe, Verified 09/24/23 14:41) Nausea Medication List - Last Reconciled 09/24/23 by Donna Rodriguez MD bimatoprost 0.01% (Lumigan) 1 drp ophthalmic (eye) DAILY brimonidine 0.2% 1 drp ophthalmic-Right BID cyclobenzaprine 5 mg PO BEDTIME dorzolamide-timolol 22.3-6.8 mg/mL 1 drp ophthalmic (eye) BID etanercept (Enbrel SureClick) 50 mg subcut QWEEK famotidine (Pepcid) 20 mg PO DAILY methylprednisolone (Medrol (Koko)) PO PER PKG DIR naproxen 500 mg PO Q12H pilocarpine HCl 2% 1 drp ophthalmic (eye) QID HPI HPI Comments History of Present Illness Details 38-year-old male with seronegative arthritis returns for follow-up. August 13 patient twisted his back to prevent him from falling on the stairs, this was at home. Since then he has been having significant low back pain more towards left radiating to his left buttock and left lower extremity. He started taking ibuprofen 600 mg t.i.d. he also took cyclobenzaprine 5 mg nightly nightly but not every night. That in addition to heating pads and lidocaine spray. He was evaluated in clinic on 08/27 for the same condition. Continued to have the same pain. At that time I discontinued the ibuprofen and switched him to naproxen 500 mg Twice daily. Patient's pain progressed and I added cyclobenzaprine 5 mg nightly since 09/07. He continues to have the same pain. Over the last week he had 2 episodes of urinary incontinence. Trickle of urine while sitting down. Denies any burning with urination. Initial history: This is a 37-year-old morbidly obese male with a past medical history of ADHD, GERD, RAFFI, schizophrenia presents for evaluation of chronic headaches and bilateral hand stiffness. Patient has had headaches for many years. He was evaluated by Neurology before and no diagnosis was reached. Patient states he has had recurrent headaches with bilateral temporal swelling for years. Over the last 2 weeks patient has noticed stiffness of both hands and reduced finger flexion bilaterally. This is associated with morning stiffness lasting 30 minutes. Patient works at [employer] and his job entails moving heavy objects. There is no history of psoriasis. Patient states he has injured his left ankle multiple times and had multiple ankle sprains and Achilles tendinitis. He also has left knee pain usually worse when he is on his feet. He takes Advil 600 mg 3 times a day on the days that his left leg bothers him. Denies history of psoriasis. No known family history of autoimmune rheumatic disease. 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 [employer] Review of Systems Musc Reports abnormal gait, Reports back pain, Reports arthralgias, Reports radiating pain into limb and Reports stiffness Neuro Reports abnormal gait Physical Exam Vital Signs: Last Vital Signs Temp 97.6 F 09/24/23 14:36 Pulse 106 H 09/24/23 14:36 BP 130/78 09/24/23 14:36 Pulse Ox 96 09/24/23 14:36 Oxygen Delivery Method Room Air 09/24/23 14:36 Const General: cooperative Nutritional Appearance: obese morbidly obese Orientation/consciousness: patient oriented x3 Limitations: no limitations HEENT Head: Yes normocephalic and Yes atraumatic Mouth: moist mucous membranes Resp Effort & Inspection: normal respiratory effort and able to speak in complete sentences GI Inspection: No distended Palpation (GI): Soft to palpation and nontender Skin Other: Could not appreciate any psoriatic patches Neuro General: patient oriented x3 Extrem Other: Significantly antalgic gait No active synovitis today Negative MTP and negative MCP squeeze test bilaterally Tenderness to palpation of the L spine vertebrae, tenderness to palpation in the left paraspinal muscles, left buttock Straight leg raise test negative on the right Strongly positive on the left Results Reviewed Results Reviewed: Labs 2021 DONATO/RF negative ESR Assessment & Plan Assessment & Plan (1) Seronegative arthritis: Comment: seroneg RA vs PsA Multiple tender and swollen joints and high inflammatory markers with excellent response to prednisone MTX started 01/11 effective but caused nausea DC 04/12 Enbrel 04/12 effective Code(s): M13.80 - Other specified arthritis, unspecified site Plan: This is a 38-year-old male with seronegative arthritis, (seronegative rheumatoid arthritis versus psA) who presents for follow-up. On Enbrel 50 mg weekly. He is in remission. Continue Enbrel 50 mg subcu once weekly Labs before next visit in 2 months Infectious screening: Hepatitis panel and T spot -ve 2022 (2) Lumbar radiculopathy, acute: Code(s): M54.16 - Radiculopathy, lumbar region Plan: on patient twisted his back to prevent him from falling on the stairs, this was at home.? Since then he has been having significant low back pain more towards left radiating to his left buttock and left lower extremity.? He started taking ibuprofen 600 mg t.i.d. he also took cyclobenzaprine 5 mg nightly nightly but not every night.? That in addition to heating pads and lidocaine spray.? He was evaluated in clinic on 08/27 for the same condition.? Continued to have the same pain.? At that time I discontinued the ibuprofen and switched him to naproxen 500 mg Twice daily.? Patient's pain progressed and I added cyclobenzaprine 5 mg nightly since 09/07.? He continues to have the same pain.? Over the last week he had 2 episodes of urinary incontinence.? Trickle of urine while sitting down. Lumbar spine x-ray was unrevealing. The concern remains of a herniated disc causing left lower extremity radiculopathy and severe lower back pain and sciatica. Given episodes of incontinence, now there is also a concern for cauda equina syndrome. Patient needs an L-spine MRI for evaluation of cauda equina syndrome and lumbar radiculopathy I will also prescribe a Medrol Dosepak to treat possible nerve compression. Hold naproxen (3) Cauda equina compression due to injury of spine: Code(s): G83.4 - Cauda equina syndrome Plan: L-spine MRI ordered Plan I spent 45 minutes reviewing patient's chart, evaluating patient, ordering diagnostic workup, counseling patient, and discussing with his insurance company over the phone Orders: Orders C Reactive Protein 2 Months M13.80 - Other specified arthritis, unspecified site Erythrocyte Sedimentation Rate 2 Months M13.80 - Other specified arthritis, unspecified site Complete Blood Count Auto Diff 2 Months M13.80 - Other specified arthritis, unspecified site Comprehensive Met. Panel 2 Months M13.80 - Other specified arthritis, unspecified site Medications: New methylprednisolone (Medrol (Koko)) PO PER PKG DIR 21 ea 0RF Coding Level of Care Code Est Pt Level 5 (00480) Diagnoses Seronegative arthritis M13.80 Lumbar radiculopathy, acute M54.16 Cauda equina compression due to injury of spine G83.4
== END 2023-09-24 15:10 | disposition home or self-care (01) ==
PROVIDERS: PCP Internal Medicine; Visit Provider Student in an Organized Health Care Education/Training Program
DX: M13.80 Other specified arthritis, unspecified site (principal); M54.16 Radiculopathy, lumbar region; G83.4 Cauda equina syndrome
CPT/HCPCS: 99215

== ENCOUNTER → 2023-09-24 14:29 | Outpatient (BNVA) | payer OTHER, SELFPAY | PROVIDERS: PCP Internal Medicine; Visit Provider Student in an Organized Health Care Education/Training Program | DX: M13.80 Other specified arthritis, unspecified site (principal); M54.16 Radiculopathy, lumbar region; G83.4 Cauda equina syndrome | CPT/HCPCS: 99212 ==

== ENCOUNTER 2023-11-24 07:01 | Outpatient (REF) | payer OTHER, SELFPAY ==
[2023-11-24 11:40] LABS: Basophils Percent Auto 0.2 % (0-2); Hematocrit 42.1 % (42.0-52.0); Hemoglobin 14.7 g/dl (14.0-18.0); Imm Gran Abs Auto 0.02 X10*3/uL (0.00-0.03); Imm Gran Pct Auto 0.4 % (0.0-0.4); Lymphocytes Absolute Auto 1.9 X10*3/uL (1.2-4.9); Lymphocytes Percent Auto 38.9 % (20-40); MANUAL DIFF FLAG NO; Mean Corpuscular HGB Conc 34.9 g/dl (31.0-36.0); Mean Corpuscular Hemoglobin 27.9 pg (27.0-33.0); Mean Corpuscular Volume 79.9 fL (80.0-98.0); Mean Platelet Volume 10.9 fL (9.4-12.4); Monocytes Absolute Auto 0.4 X10*3/uL (0.1-1.2); Monocytes Percent Auto 8.7 % (2-11); Neutrophils Absolute Auto 2.5 x10*3/uL (2.0-8.3); Neutrophils Percent Auto 51.8 % (45-73); Platelet Count 202 X10*3/uL (160-400); Red Blood Count 5.27 X10*6/uL (4.60-5.80); Red Cell Distribution Width 13.4 % (11.0-16.0); White Blood Count 4.8 X10*3/uL (4.8-10.8)
[2023-11-24 12:30] LABS: Erythrocyte Sedimentation Rate 14 MM/HR (0-15)
[2023-11-24 13:30] LABS: Alanine Aminotransferase 56 U/L (0-40); Albumin Level 4.4 g/dL (3.5-5.0); Alkaline Phosphatase 70 U/L (39-117); Anion Gap 12 (12-20); Aspartate Amino Transferase 34 U/L (5-37); Bilirubin Total 1.3 mg/dL (0.0-1.0); Blood Urea Nitrogen 9 mg/dL (9-16); C Reactive Protein 0.84 mg/dL (< or = 0.50); Calcium 9.4 mg/dL (8.4-10.2); Carbon Dioxide 27 mmol/L (22-29); Chloride 106 mmol/L (96-108); Estimated Glomerular Filt Rate > 60; Glucose Random 99 mg/dL (60-115); Potassium 3.9 mmol/L (3.3-5.1); Sodium 141 mmol/L (135-145); Total Protein 7.2 g/dL (6.5-8.0)
== END 2023-11-24 07:02 | disposition home or self-care (01) ==
LOC: HO.WFDLDS 07:01
PROVIDERS: Visit Provider Student in an Organized Health Care Education/Training Program
DX: M13.80 Other specified arthritis, unspecified site (principal)
CPT/HCPCS: 36415; 80053; 85025; 85652; 86140

== ENCOUNTER 2023-11-26 13:39 | Outpatient (REF) | payer OTHER, SELFPAY ==
--- NOTE | ~2023-11-26 | XR_ITS ---
EXAMINATION: XR HIP, LEFT CLINICAL INFORMATION: Unilateral primary osteoarthritis left hip, provider looking for read. COMPARISON: Lumbar spine of 08/27/2023 radiographs. TECHNIQUE: Two views of the left hip. FINDINGS: Limited visualization due to bowel gas and body habitus. Alignment preserved. Moderate degenerative changes in the left hip with joint space narrowing and hypertrophic change. Small dense rounded focus overlying the left inferior pubic ramus laterally may represent a bony lesion such as a bone island versus soft tissue calcification. XR/XR hip LT min 2V IMPRESSION: 1. Moderate degenerative changes in the left hip. 2. Small dense rounded focus overlying the left inferior pubic ramus laterally may represent a bony lesion such as a bone island versus soft tissue calcification. 3. Limited visualization due to body habitus. CT scan recommended for further evaluation if there is concern for fracture or other underlying pathology. This study was presented today November 30, 2023 for interpretation. Prompt priority results supplied at this time to the referring provider as requested by the provider.
== END 2023-11-26 13:40 | disposition home or self-care (01) ==
LOC: HO.XRAY 13:39
PROVIDERS: PCP Internal Medicine; Visit Provider Anesthesiology
DX: M16.12 Unilateral primary osteoarthritis, left hip (principal); M25.642 Stiffness of left hand, not elsewhere classified; M25.641 Stiffness of right hand, not elsewhere classified; M48.061 Spinal stenosis, lumbar region without neurogenic claudication; Z71.2 Person consulting for explanation of examination or test findings; Z79.899 Other long term (current) drug therapy
CPT/HCPCS: 73502; 99202; 99212

== ENCOUNTER 2023-11-26 13:39 | Outpatient (AMB) | payer OTHER, SELFPAY ==
--- NOTE | 2023-11-26 13:45 | A.OFFVIS_ITS ---
Intake Vital Signs 11/26/23 14:02 Height 5 ft 10 in Weight 394 lb BMI 56.5 BP 142/90 H Blood Pressure Location Lt radial Position Sitting Respiration 16 Pulse 102 H Pulse Source Pulse Oximeter Pulse Oximetry (%) 94 Oxygen Delivery Method Room Air Intake Visit Reasons: Left L3 root compression Intake Note: Patient comes in for initial visit was referred by [facility]. Reports pain 6/10. Allergies diphenhydramine [From Benadryl] Allergy (Unknown, Verified 11/26/23 15:31) Unknown methotrexate Adverse Reaction (Severe, Verified 11/26/23 15:31) Nausea HPI HPI Comments History of Present Illness Details Eric is very pleasant 38 years old gentleman who presents in my office with complains on 2 pain generators. He complains on pain in the mid to lower back as well as pain in the left groin. He reports that pain in the groin is most severe pain which affects her ability to perform activities of daily living and interfere with his work. 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 However he sometimes needs to perform some heavy lifting maneuvers. He is also morbidly obese. His BMI is 56.5 kg per m2. He reports that this pain started 3 months ago. Heat applications and topical medications as well as oral medications help his pain. In terms of tissue damage he reports his pain is pulsing, throbbing, pounding, stabbing, lancinating, dull, hurting, heavy, tiring, exhausting. He is taking cyclobenzaprine and OTC ibuprofen for his pain. He had MRI of the lumbar spine results of which dictated as below. He never had physical therapy for his pain. He never had any injections for his pain. Past medical history significant for headaches, fatigue, depression/manic disorder which is not full-blown bipolar anxiety disorder and shortness of breath related to anxiety. His past surgical history significant for glaucoma surgery ear tube surgery sinus surgery and endoscopy. He denies smoking cigarettes denies drinking alcohol admits drinking diet soda and he admits taking cannabis occasionally. 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 [employer] Review of Systems Const Reports no additional complaints and Reports weight gain ENT Reports Normal hearing present Card Reports no additional complaints Resp Reports no additional complaints GI Reports no additional complaints Musc Reports as per HPI Neuro Reports no additional complaints, Reports Normal hearing present, Denies Abnormal speech present, Denies confusion and Denies Sensory deficit (Neuro) Psych Reports as per HPI and Denies confusion Physical Exam Vital Signs: Last Vital Signs Pulse 102 H 11/26/23 14:02 Resp 16 11/26/23 14:02 BP 142/90 H 11/26/23 14:02 Pulse Ox 94 11/26/23 14:02 Oxygen Delivery Method Room Air 11/26/23 14:02 BMI result Body Mass Index 56.5 Const General: no acute distress; No confusion Nutritional Appearance: obese morbidly obese Orientation/consciousness: patient oriented x3 and No confusion Eyes General: appearance normal, both eyes and all related structures Pupils: Equal, round and reactive pupils present EOM: EOMs intact bilaterally Neck Neck: Yes full ROM Chest Chest palpation & inspection: normal inspection of the chest Resp Effort & Inspection: normal respiratory effort, able to speak in complete se ntences, normal respiratory pattern, no audible wheezes and no cough Cardio Jugular venous distension: no JVD GI Inspection: Yes normal to inspection Back/Spine/Pelvis Other: Tenderness on palpation in paraspinal spinal region lumbar spine. Flexing forward alleviates his pain. Neuro General: patient oriented x3, gait normal and No confusion Cranial nerves: Yes CN's II-XII intact bilaterally, Yes Equal, round and reactive pupils present, Yes Normal hearing present and Yes Ability to bilaterally elevate shoulders present Speech: No Abnormal speech present Gait exam (Neuro): Normal gait present Motor exam (neuro): 5/5 motor strength present throughout Sensory Exam: No Sensory deficit (Neuro) Extrem Other: Rotation of the left hip lateral almost impossible because of the pain. I presume flare-up of the left hip arthritis. General: No pedal edema Psych Speech and movement: Normal speech and movement present Affect: normal affect Attitude: cooperative Thought process: Normal thought process present Thought content: Normal thought content present Insight: Good insight present (Psych) Judgement: Good judgement present (Psych) Results Reviewed Results Reviewed: MRI lumbar spine 10/05/2023. Findings: Bones: Normal marrow signal is noted. Cord: The cord appears within normal limits. Normal signals noted. Conus terminates at L1. Disc: Minimal degenerative changes are noted as described below. Facets: Appears normal. Lumbar spinal levels: L1-L2 minimal degenerative changes with small disc protrusion. Minimal spinal canal stenosis. Bilateral foraminal stenosis minimal. L2-L3: Degenerative disc bulge with left paracentral disc protrusion. Findings contribute to moderate spinal canal stenosis. There is also a symmetric enhancement of the left lateral recess that is likely exerts mass effect on the abutting left L3 nerve root. Degenerative changes contributes to moderate bilateral foraminal stenosis. L3-L4: Minimal degenerative disc and facet changes without significant canal stenosis. Mild bilateral foraminal stenosis. L4-5 normal without significant stenosis. L5-S1 minimal degenerative disc bulge with no significant spinal canal stenosis. Finding cause moderate bilateral foraminal stenosis. Assessment & Plan Assessment & Plan (1) Arthritis of left hip: Code(s): M16.12 - Unilateral primary osteoarthritis, left hip (2) Spinal stenosis of lumbar region: Code(s): M48.061 - Spinal stenosis, lumbar region without neurogenic claudication Plan It looks like that this patient is suffering from osteoarthritis of the left hip. I am sending him today for left hip x-ray. If as I suspect the patient has significant osteoarthritis of the left hip I will schedule him for left hip injection. I will see him after the left hip steroid injection here in the office. He is office all in my opinion suffering from moderate spinal canal stenosis which could be a reason for his lower back pain. However this is on the background now. I will schedule him for the follow-up and we will discuss lower back pain after we will take care of his left hip pain. Orders: Orders XR hip LT min 2V 11/26/23 M16.12 - Unilateral primary osteoarthritis, left hip Coding Level of Care Code New Pt Level 3 (81949) Diagnoses Arthritis of left hip M16.12 Spinal stenosis of lumbar region M48.061
[2023-11-26 14:02] VITALS: BP 142/90; PULSE 102; RESP 16; O2SAT 94; BMI 56.5
== END 2023-11-26 14:48 | disposition home or self-care (01) ==
PROVIDERS: PCP Internal Medicine; Visit Provider Anesthesiology
DX: M16.12 Unilateral primary osteoarthritis, left hip (principal); M48.061 Spinal stenosis, lumbar region without neurogenic claudication
CPT/HCPCS: 99203

== ENCOUNTER 2023-11-26 14:52 | Outpatient (AMB) | payer OTHER, SELFPAY ==
--- NOTE | 2023-11-26 15:31 | A.OFFVIS_ITS ---
Intake Vital Signs 11/26/23 15:43 Height 5 ft 10 in Weight 397 lb 14.95 oz BMI 57.1 BP 138/60 Blood Pressure Location Rt radial Position Sitting Pulse 107 H Pulse Source Pulse Oximeter Temp 97 F Temp Source Skin Pulse Oximetry (%) 96 Oxygen Delivery Method Room Air Intake Visit Reasons: PsA Intake Note: Patient last seen 09/24/23 presents today for follow up and test results. 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 Accompanied by: Self / Same As Patient Allergies diphenhydramine [From Benadryl] Allergy (Unknown, Verified 11/26/23 15:31) Unknown methotrexate Adverse Reaction (Severe, Verified 11/26/23 15:31) Nausea Medication List - Last Reconciled 11/26/23 by Donna Rodriguez MD bimatoprost 0.01% (Lumigan) 1 drp ophthalmic (eye) DAILY brimonidine 0.2% 1 drp ophthalmic-Right BID cyclobenzaprine 5 mg PO BEDTIME dorzolamide-timolol 22.3-6.8 mg/mL 1 drp ophthalmic (eye) BID etanercept (Enbrel SureClick) 50 mg subcut QWEEK famotidine (Pepcid) 20 mg PO DAILY ibuprofen 800 mg PO .QD pilocarpine HCl 2% 1 drp ophthalmic (eye) QID HPI HPI Comments History of Present Illness Details 38-year-old male with seronegative arthritis returns for follow-up. Remains on Enbrel 50 mg daily. He continues to have left buttock pain. Continues to have a limp with walking. He states that his pain has somewhat improved with time. He takes ibuprofen 800 mg daily. States that he has been a little bit more busy at work. he was evaluated by Pain Management today. And the plan is to get left hip cortisone injection. He denies any pain or swelling of his hands, wrists, fingers, ankles. States that Flexeril 5 mg nightly does help. Would like a refill. States that he was also recently evaluated by dentist and was told that he has Gingivitis and received dental cleaning. He has not had any fevers. Initial history: This is a 37-year-old morbidly obese male with a past medical history of ADHD, GERD, RAFFI, schizophrenia presents for evaluation of chronic headaches and bilateral hand stiffness. Patient has had headaches for many years. He was evaluated by Neurology before and no diagnosis was reached. Patient states he has had recurrent headaches with bilateral temporal swelling for years. Over the last 2 weeks patient has noticed stiffness of both hands and reduced finger flexion bilaterally. This is associated with morning stiffness lasting 30 minutes. Patient works at [employer] and his job entails moving heavy objects. There is no history of psoriasis. Patient states he has injured his left ankle multiple times and had multiple ankle sprains and Achilles tendinitis. He also has left knee pain usually worse when he is on his feet. He takes Advil 600 mg 3 times a day on the days that his left leg bothers him. Denies history of psoriasis. No known family history of autoimmune rheumatic disease. 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 [employer] Review of Systems Musc Reports abnormal gait, Reports back pain, Reports arthralgias, Reports radiating pain into limb and Reports stiffness Neuro Reports abnormal gait Physical Exam Vital Signs: Last Vital Signs Temp 97 F 11/26/23 15:43 Pulse 107 H 11/26/23 15:43 BP 138/60 11/26/23 15:43 Pulse Ox 96 11/26/23 15:43 Oxygen Delivery Method Room Air 11/26/23 15:43 BMI result Body Mass Index 57.1 Const General: cooperative Nutritional Appearance: obese morbidly obese Orientation/consciousness: patient oriented x3 Limitations: no limitations HEENT Head: Yes normocephalic and Yes atraumatic Mouth: moist mucous membranes Resp Effort & Inspection: normal respiratory effort and able to speak in complete sentences GI Inspection: No distended Palpation (GI): Soft to palpation and nontender Skin Other: Could not appreciate any psoriatic patches Neuro General: patient oriented x3 Extrem Other: walks with a limp No active synovitis today Negative MTP and negative MCP squeeze test bilaterally Tenderness to palpation of the L spine vertebrae, tenderness to palpation in the left paraspinal muscles, left buttock Results Reviewed Results Reviewed: Labs 2021 DONATO/RF negative ESR 24 Assessment & Plan Assessment & Plan (1) Seronegative arthritis: Comment: seroneg RA vs PsA Multiple tender and swollen joints and high inflammatory markers with excellent response to prednisone MTX started 01/11 effective but caused nausea DC 04/12 Enbrel 04/12 effective Code(s): M13.80 - Other specified arthritis, unspecified site Plan: This is a 38-year-old male with seronegative arthritis, (seronegative rheumatoid arthritis versus psA) who presents for follow-up. On Enbrel 50 mg weekly. He is in remission. Continue Enbrel 50 mg subcu once weekly Labs before next visit in 4 months Infectious screening: Hepatitis panel and T spot -ve 2022 (2) Arthritis of left hip: Code(s): M16.12 - Unilateral primary osteoarthritis, left hip Plan: was evaluated today by Pain Management and left hip cortisone injection is planned (3) Spinal stenosis of lumbar region: Code(s): M48.061 - Spinal stenosis, lumbar region without neurogenic claudication Qualifiers: Neurogenic claudication status: unspecified Qualified Code(s): M48.061 - Spinal stenosis, lumbar region without neurogenic claudication Plan: follow-up with pain management Plan I spent 22 minutes reviewing patient's chart, evaluating patient, ordering diagnostic workup, counseling patient and documenting in the chart Orders: Orders 2 Complete Blood Count Auto Diff 4 Months M13.80 - Other specified arthritis, unspecified site Comprehensive Met. Panel 4 Months M13.80 - Other specified arthritis, unspecified site Erythrocyte Sedimentation Rate 4 Months M13.80 - Other specified arthritis, unspecified site C Reactive Protein 4 Months M13.80 - Other specified arthritis, unspecified site Coding Level of Care Code Est Pt Level 4 (38173) Diagnoses Seronegative arthritis M13.80 Arthritis of left hip M16.12 Spinal stenosis of lumbar region, unspecified whether neurogenic claudication present M48.061 Neurogenic claudication status: unspecified
[2023-11-26 15:43] VITALS: BP 138/60; PULSE 107; TEMP 36.1; O2SAT 96; BMI 57.1
== END 2023-11-26 16:09 | disposition home or self-care (01) ==
PROVIDERS: PCP Internal Medicine; Visit Provider Student in an Organized Health Care Education/Training Program
DX: M13.89 Other specified arthritis, multiple sites (principal); M48.061 Spinal stenosis, lumbar region without neurogenic claudication
CPT/HCPCS: 99214

== ENCOUNTER 2023-12-29 06:05 | Outpatient (REF) | payer OTHER, SELFPAY ==
--- NOTE | ~2023-12-29 | FL_ITS ---
EXAMINATION: XR FLUOROSCOPY WITH IMAGES CLINICAL INFORMATION: Unilateral primary osteoarthritis, left hip. COMPARISON: Left hip radiographs dated 11/26/2023. TECHNIQUE: Fluoroscopy Supervised By: Dr. Jef Gill. Fluoroscopy Time: 0.2 minutes. Cumulative Dose: 22.6 mGy. DAP: 3.41 Gycm2. Images: 1. FINDINGS: The submitted image shows contrast within the left hip joint space. FL/FL guidance in treatment room IMPRESSION: Intraoperative fluoroscopic guidance provided during left hip pain management procedure. Please see the patient's Operative Report for full procedural details.
== END 2023-12-29 06:06 | disposition home or self-care (01) ==
LOC: CF 06:05
PROVIDERS: Visit Provider Anesthesiology
DX: M16.12 Unilateral primary osteoarthritis, left hip (principal); M79.652 Pain in left thigh; M48.01 Spinal stenosis, occipito-atlanto-axial region; M48.061 Spinal stenosis, lumbar region without neurogenic claudication
CPT/HCPCS: 20610; J2795; J3301; Q9967

== ENCOUNTER 2023-12-29 07:25 | Outpatient (AMB) | payer OTHER, SELFPAY ==
[2023-12-29 07:32] VITALS: BP 130/82; PULSE 84; RESP 12; O2SAT 97
--- NOTE | 2023-12-29 07:32 | MHC.OFFVIS ---
Intake Vital Signs 12/29/23 07:32 12/29/23 08:07 BP 130/82 140/72 H Blood Pressure Location Rt radial Lt brachial Position Sitting Sitting Respiration 12 14 Pulse 84 88 Pulse Source Pulse Oximeter Pulse Oximeter Pulse Oximetry (%) 97 96 Oxygen Delivery Method Room Air Room Air Intake Visit Reasons: LEFT HIP INJECTION Allergies diphenhydramine [From Benadryl] Allergy (Unknown, Verified 12/29/23 07:33) Unknown methotrexate Adverse Reaction (Severe, Verified 12/29/23 07:33) Nausea PFSH Medical History Schizophrenia ADHD Morbid obesity GERD (gastroesophageal reflux disease) Iron deficiency anemia Sleep apnea Migraines Surgical History History of tonsillectomy and adenoidectomy Family History Mother OCD (obsessive compulsive disorder) Father Diabetes Social History Household Members Other:: Lives with parents Housing: House Alcohol intake: never Patient Tobacco Use Status: Never used Tobacco e-Cigarette/Vaping Use: Never Used Substance Use Type: Marijuana service: No Current occupational status: employed 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 [employer] Physical Exam Vital Signs: Last Vital Signs Pulse 88 12/29/23 08:07 Resp 14 12/29/23 08:07 BP 140/72 H 12/29/23 08:07 Pulse Ox 96 12/29/23 08:07 Oxygen Delivery Method Room Air 12/29/23 08:07 Assessment & Plan Assessment & Plan (1) Arthritis of left hip: Code(s): M16.12 - Unilateral primary osteoarthritis, left hip (2) Spinal stenosis of lumbar region: Code(s): M48.061 - Spinal stenosis, lumbar region without neurogenic claudication Qualifiers: Neurogenic claudication status: unspecified Qualified Code(s): M48.061 - Spinal stenosis, lumbar region without neurogenic claudication Plan: Left Intra-articular hip injection. Informed consent was explained to the patient. All questions were explained and answered.? The patient was taken inside of the operating room where he was positioned right lateral decubitus on operating table..? Time-out was performed delineating patient's name and date of , correct site, side, the nature of the procedure, patient's allergy, preoperative antibiotic if needed, need for VT prophylaxis..? All operating room staff was participating in OR time-out procedure. Left hip area of the patient was prepped with ChloraPrep and draped with sterile towels.? Sterilely draped C-arm was brought over the operating field and picture of left and right lateral views of the bilateral hip joints were delineated on the screen.? The smaller joint silhouette was chosen as the target.? Direction of the femoral neck was noted and the projection of that direction was delineated on the skin with skin markers.? Projection of the right trochanter to the skin was chosen as the initial needle insertion point.? After that the skin and subcutaneous tissues was anesthetized with 2% lidocaine 2.5 mL.? 22 gauge 5 in long needle was inserted through the skin and started to advance to the joint space under anterior posterior view.? When needle entered the capsule of the joint small amount of the contrast was injected delineating intra-articular space.? After that treatment solution containing ropivacaine 0.5% 4 mL mixed with 40 mg of Kenalog was injected into the joint.? The needle was withdrawn sterile dressing was applied. The patient tolerated the procedure well. Plan It looks like that this patient is suffering from osteoarthritis of the left hip. I am sending him today for left hip x-ray. If as I suspect the patient has significant osteoarthritis of the left hip I will schedule him for left hip injection. I will see him after the left hip steroid injection here in the office. He is office all in my opinion suffering from moderate spinal canal stenosis which could be a reason for his lower back pain. However this is on the background now. I will schedule him for the follow-up and we will discuss lower back pain after we will take care of his left hip pain. Orders: Orders CT bony pelvis 12/29/23 Jef Gill MD M16.12 - Unilateral primary osteoarthritis, left hip, M79.652 - Pain in left thigh FL guidance in treatment room 12/29/23 Linda Crowell APRN, PLANT OPERATOR CONTROL ROOM OPERATOR M16.12 - Unilateral primary osteoarthritis, left hip Coding Level of Care Code Procedure Only Diagnoses Arthritis of left hip M16.12 Spinal stenosis of lumbar region, unspecified whether neurogenic claudication present M48.061 Neurogenic claudication status: unspecified
[2023-12-29 08:07] VITALS: BP 140/72; PULSE 88; RESP 14; O2SAT 96
== END 2023-12-29 08:02 | disposition home or self-care (01) ==
LOC: HO.PMCPRC 07:25
PROVIDERS: PCP Internal Medicine; Visit Provider Anesthesiology
DX: M16.12 Unilateral primary osteoarthritis, left hip (principal); M48.061 Spinal stenosis, lumbar region without neurogenic claudication
CPT/HCPCS: 20610; 77002

== ENCOUNTER 2024-01-11 11:02 | Outpatient (AMB) | payer OTHER, SELFPAY ==
--- NOTE | 2024-01-11 11:06 | A.OFFVIS_ITS ---
Vital Signs 01/11/24 11:13 Height 5 ft 10 in Weight 392 lb 2 oz BMI 56.3 BP 128/74 Blood Pressure Location Lt brachial Position Sitting Respiration 16 Pulse 100 Pulse Source Pulse Oximeter Pulse Oximetry (%) 96 Oxygen Delivery Method Room Air Intake Visit Reasons: LEFT HIP INJECTON Intake Note: Patient comes in for post-op appointment. Reports pain 2/10. Allergies diphenhydramine [From Benadryl] Allergy (Unknown, Verified 01/11/24 11:13) Unknown methotrexate Adverse Reaction (Severe, Verified 01/11/24 11:13) Nausea HPI Comments Details: Eric is back in my office after the left hip steroid injection. He reports advanced pain relief. He reports his pain today 2/10 including pain in the back and pain in the groin. We discussed situation and hands. I pointed out to him that his rheumatoid arthritis as well as increased BMI factors in the progression of the arthritis in his left hip. Explained to him that I would not mind to perform hip steroid injection for him once in 3 months as long as this medication and procedure helps the patient. He understood the issue. He is interested in weight loss however he is reluctant to go for bariatric surgery. He is under care of Dr. Aguilar for his rheumatoid arthritis. It is seronegative arthritis. When the pain of the patient will come back he will give us a call and we will schedule another left hip steroid injection. He is also interested in the investigation of the lesion in his inferior ramus pubis. The radiologist recommended the CT scan of bony pelvis to evaluate the lesion for the. I will refer him to a primary care physician who will continue with evaluation of this bony lesion as well as promoting healthy weight loss for this patient. Prior: very pleasant 38 years old gentleman who presents in my office with complains on 2 pain generators. He complains on pain in the mid to lower back as well as pain in the left groin. He reports that pain in the groin is most severe pain which affects her ability to perform activities of daily living and interfere with his work. 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 However he sometimes needs to perform some heavy lifting maneuvers. He is also morbidly obese. His BMI is 56.5 kg per m2. He reports that this pain started 3 months ago. Heat applications and topical medications as well as oral medications help his pain. He had MRI of the lumbar spine results of which dictated as below. He never had physical therapy for his pain. He never had any injections for his pain. Past medical history significant for headaches, fatigue, depression/manic disorder which is not full-blown bipolar anxiety disorder and shortness of breath related to anxiety. His past surgical history significant for glaucoma surgery ear tube surgery sinus surgery and endoscopy. He denies smoking cigaret theo denies drinking alcohol admits drinking diet soda and he admits taking cannabis occasionally.; [facility] Medical History Schizophrenia ADHD Morbid obesity GERD (gastroesophageal reflux disease) Iron deficiency anemia Sleep apnea Migraines Surgical History History of tonsillectomy and adenoidectomy Family History Mother OCD (obsessive compulsive disorder) Father Diabetes Social History Household Members Other:: Lives with parents Housing: House Alcohol intake: never Patient Tobacco Use Status: Never used Tobacco e-Cigarette/Vaping Use: Never Used Substance Use Type: Marijuana service: No Current occupational status: employed 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 [employer] Review of Systems Const All systems reviewed & are unremarkable except as noted in HPI and below ENT Reports Normal hearing present Neuro Reports Normal hearing present, Denies Abnormal speech present, Denies confusion and Denies Sensory deficit (Neuro) Psych Denies confusion Physical Exam Vital Signs: Last Vital Signs Pulse 100 01/11/24 11:13 Resp 16 01/11/24 11:13 BP 128/74 01/11/24 11:13 Pulse Ox 96 01/11/24 11:13 Oxygen Delivery Method Room Air 01/11/24 11:13 BMI result Body Mass Index 56.3 Const General: no acute distress; No confusion Nutritional Appearance: obese morbidly obese Orientation/consciousness: patient oriented x3 and No confusion Eyes General: appearance normal, both eyes and all related structures Pupils: Equal, round and reactive pupils present EOM: EOMs intact bilaterally Neck Neck: Yes full ROM Chest Chest palpation & inspection: normal inspection of the chest Resp Effort & Inspection: normal respiratory effort, able to speak in complete sentences, normal respiratory pattern, no audible wheezes and no cough Cardio Jugular venous distension: no JVD GI Inspection: Yes normal to inspection Back/Spine/Pelvis Other: Tenderness on palpation in paraspinal spinal region lumbar spine. Flexing forward alleviates his pain. Neuro General: patient oriented x3, gait normal and No confusion Cranial nerves: Yes CN's II-XII intact bilaterally, Yes Equal, round and reactive pupils present, Yes Normal hearing present and Yes Ability to bilaterally elevate shoulders present Speech: No Abnormal speech present Gait exam (Neuro): Normal gait present Motor exam (neuro): 5/5 motor strength present throughout Sensory Exam: No Sensory deficit (Neuro) Extrem Other: Rotation of the left hip lateral almost impossible because of the pain. I presume flare-up of the left hip arthritis. General: No pedal edema Psych Speech and movement: Normal speech and movement present Affect: normal affect Attitude: cooperative Thought process: Normal thought process present Thought content: Normal thought content present Insight: Good insight present (Psych) Judgement: Good judgement present (Psych) Results Reviewed Results Reviewed: MRI lumbar spine 10/05/2023. Findings: Bones: Normal marrow signal is noted. Cord: The cord appears within normal limits. Normal signals noted. Conus terminates at L1. Disc: Minimal degenerative changes are noted as described below. Facets: Appears normal. Lumbar spinal levels: L1-L2 minimal degenerative changes with small disc protrusion. Minimal spinal canal stenosis. Bilateral foraminal stenosis minimal. L2-L3: Degenerative disc bulge with left paracentral disc protrusion. Findings contribute to moderate spinal canal stenosis. There is also a symmetric enhance ment of the left lateral recess that is likely exerts mass effect on the abutting left L3 nerve root. Degenerative changes contributes to moderate bilateral foraminal stenosis. L3-L4: Minimal degenerative disc and facet changes without significant canal stenosis. Mild bilateral foraminal stenosis. L4-5 normal without significant stenosis. L5-S1 minimal degenerative disc bulge with no significant spinal canal stenosis. Finding cause moderate bilateral foraminal stenosis. Assessment & Plan Assessment & Plan (1) Arthritis of left hip: Code(s): M16.12 - Unilateral primary osteoarthritis, left hip Category: Medical (2) Spinal stenosis of lumbar region: Code(s): M48.061 - Spinal stenosis, lumbar region without neurogenic claudication Category: Medical Qualifiers: Neurogenic claudication status: unspecified Qualified Code(s): M48.061 - Spinal stenosis, lumbar region without neurogenic claudication (3) Bone island: Code(s): M89.8X9 - Other specified disorders of bone, unspecified site Category: Medical Plan Left hip steroid injection gave us very good results. The patient reports pain 2/10 today. I am willing to continue this as long as it helps the patient. I will schedule him for CT scan of the pelvis to evaluate bony lesion in the ramus pubis. He would need to follow-up with primary care physician. I will refer him to our primary care physician group. Consult with bariatric surgery offered to the patient, however patient is reluctant to go for the bariatric surgery. Orders: Orders CT bony pelvis Today M16.12 - Unilateral primary osteoarthritis, left hip, M89.8X9 - Other specified disorders of bone, unspecified site
[2024-01-11 11:13] VITALS: BP 128/74; PULSE 100; RESP 16; O2SAT 96; BMI 56.3
== END 2024-01-11 11:50 | disposition home or self-care (01) ==
LOC: HO.PMC 11:03
PROVIDERS: PCP Internal Medicine; Visit Provider Anesthesiology
DX: M16.12 Unilateral primary osteoarthritis, left hip (principal); M48.061 Spinal stenosis, lumbar region without neurogenic claudication; M89.8X9 Other specified disorders of bone, unspecified site
CPT/HCPCS: 99213

== ENCOUNTER → 2024-01-11 11:03 | Outpatient (BNVA) | payer OTHER, SELFPAY | PROVIDERS: PCP Internal Medicine; Visit Provider Anesthesiology | DX: M16.12 Unilateral primary osteoarthritis, left hip (principal); M48.061 Spinal stenosis, lumbar region without neurogenic claudication; M89.8X9 Other specified disorders of bone, unspecified site | CPT/HCPCS: 99212 ==

== ENCOUNTER 2024-02-12 12:41 | Outpatient (REF) | payer OTHER, SELFPAY ==
--- NOTE | ~2024-02-12 | CT_ITS ---
EXAMINATION: CT PELVIS WITHOUT CONTRAST CLINICAL INFORMATION: Unilateral primary osteoarthritis, left hip COMPARISON: Left hip radiograph dated 11/26/2023 TECHNIQUE: Helical scanning was performed with submillimeter collimation through the pelvis. Sagittal and coronal multiplanar 2-D reconstructions were obtained. This CT examination was performed using dose optimization techniques as appropriate, variously including the following: *Automated exposure control *Adjustment of mA and/or kV according to patient size (this includes techniques or standardized protocols for targeted exams where dose is matched to indication/reason for exam; i.e. extremities or head) *Use of iterative reconstruction technique DLP: 1108 mGy-cm FINDINGS: No acute intrapelvic findings. Appendix is normal. No pelvic small bowel and colon are normal in caliber without significant surrounding fat stranding. Bladder is unremarkable. Small dystrophic calcifications in the central prostate. There is mild degenerative disc disease in the lower lumbar spine at L5-S1 with mild associated facet arthropathy. Mild osteoarthritis is evident in both hips characterized by marginal osteophytes at the acetabulum and minimal joint space narrowing. There is a 6 mm bone island in the left ischium. A 7 mm bone island is present in the right sacral ala. No suspicious osseous lesions. Pelvic musculature is unremarkable. No appreciable atrophy or fatty replacement. CT/CT bony pelvis IMPRESSION: 1. Mild osteoarthritis in both hips. 2. Mild degenerative disc disease and facet arthropathy at L5-S1.
== END 2024-02-12 12:42 | disposition home or self-care (01) ==
LOC: HO.CT 12:41
PROVIDERS: PCP Internal Medicine; Visit Provider Anesthesiology
DX: M16.12 Unilateral primary osteoarthritis, left hip (principal); M89.8X9 Other specified disorders of bone, unspecified site
CPT/HCPCS: 72192

== ENCOUNTER 2024-03-03 11:10 | Outpatient (AMB) | payer OTHER, SELFPAY ==
--- NOTE | 2024-03-03 11:28 | A.OFFVIS_ITS ---
Vital Signs 03/03/24 11:33 Height 5 ft 10 in Weight 391 lb 6 oz BMI 56.2 BP 136/98 H Blood Pressure Location Lt radial Position Sitting Respiration 18 Pulse 82 Pulse Source Pulse Oximeter Pulse Oximetry (%) 95 Oxygen Delivery Method Room Air Intake Visit Reasons: CT FOLLOW UP/RESULTS Intake Note: Patient comes in to discuss CT scan results. Reports pain 3/10. Allergies diphenhydramine [From Benadryl] Allergy (Unknown, Verified 03/03/24 11:33) Unknown methotrexate Adverse Reaction (Severe, Verified 03/03/24 11:33) Nausea HPI Comments Details: Eric is back in my office after the left hip steroid injection. He reports advanced pain relief. He reports his pain today 2/10 including pain in the back and pain in the groin. He continues to expressed satisfaction with the injection 3 months after the procedure. He is here to evaluate the CT scan with lesion in inferior ramus pubis. He is can not demonstrated benign bony island. He does not have to worry about anything. He may give us a call and pain in the hip will come back to receive yet another intra-articular hip injection. He is complaining on muscular spasticity he is prescribed muscle relaxants. To help more with muscular spasticity I recommend him to take OTC magnesium. Explained to him that I would not mind to perform hip steroid injection for him once in 3 months as long as this medication and procedure helps the patient. He understood the issue. He is interested in weight loss however he is reluctant to go for bariatric surgery. He is under care of Dr. Aguilar for his rheumatoid arthritis. It is seronegative arthritis. When the pain of the patie nt will come back he will give us a call and we will schedule another left hip steroid injection. He is also interested in the investigation of the lesion in his inferior ramus pubis. The radiologist recommended the CT scan of bony pelvis to evaluate the lesion for the. I will refer him to a primary care physician who will continue with evaluation of this bony lesion as well as promoting healthy weight loss for this patient. Prior: very pleasant 38 years old gentleman who presents in my office with complains on 2 pain generators. He complains on pain in the mid to lower back as well as pain in the left groin. He reports that pain in the groin is most severe pain which affects her ability to perform activities of daily living and interfere with his work. 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 However he sometimes needs to perform some heavy lifting maneuvers. He is also morbidly obese. His BMI is 56.5 kg per m2. He reports that this pain started 3 months ago. Heat applications and topical medications as well as oral medications help his pain. He had MRI of the lumbar spine results of which dictated as below. He never had physical therapy for his pain. He never had any injections for his pain. Past medical history significant for headaches, fatigue, depression/manic disorder which is not full-blown bipolar anxiety disorder and shortness of breat h related to anxiety. His past surgical history significant for glaucoma surgery ear tube surgery sinus surgery and endoscopy. He denies smoking cigarettes denies drinking alcohol admits drinking diet soda and he admits taking cannabis occasionally.; [facility] Medical History Schizophrenia ADHD Morbid obesity GERD (gastroesophageal reflux disease) Iron deficiency anemia Sleep apnea Migraines Surgical History History of tonsillectomy and adenoidectomy Family History Mother OCD (obsessive compulsive disorder) Father Diabetes Social History Household Members Other:: Lives with parents Housing: House Alcohol intake: never Patient Tobacco Use Status: Never used Tobacco e-Cigarette/Vaping Use: Never Used Substance Use Type: Marijuana service: No Current occupational status: employed 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 [employer] Review of Systems Const All systems reviewed & are unremarkable except as noted in HPI and below ENT Reports Normal hearing present Neuro Reports Normal hearing present, Denies Abnormal speech present, Denies confusion and Denies Sensory deficit (Neuro) Psych Denies confusion Physical Exam Vital Signs: Last Vital Signs Pulse 82 03/03/24 11:33 Resp 18 03/03/24 11:33 BP 136/98 H 03/03/24 11:33 Pulse Ox 95 03/03/24 11:33 Oxygen Delivery Method Room Air 03/03/24 11:33 BMI result Body Mass Index 56.2 Const General: no acute distress; No confusion Nutritional Appearance: obese morbidly obese Orientation/consciousness: patient oriented x3 and No confusion Eyes General: appearance normal, both eyes and all related structures Pupils: Equal, round and reactive pupils present EOM: EOMs intact bilaterally Neck Neck: Yes full ROM Chest Chest palpation & inspection: normal inspection of the chest Resp Effort & Inspection: normal respiratory effort, able to speak in complete sentences, normal respiratory pattern, no audible wheezes and no cough Cardio Jugular venous distension: no JVD GI Inspection: Yes normal to inspection Back/Spine/Pelvis Other: Tenderness on palpation in paraspinal spinal region lumbar spine. Flexing forward alleviates his pain. Neuro General: patient oriented x3, gait normal and No confusion Cranial nerves: Yes CN's II-XII intact bilaterally, Yes Equal, round and reactive pupils present, Yes Normal hearing present and Yes Ability to bilaterally elevate shoulders present Speech: No Abnormal speech present Gait exam (Neuro): Normal gait present Motor exam (neuro): 5/5 motor strength present throughout Sensory Exam: No Sensory deficit (Neuro) Extrem Other: Rotation of the left hip lateral almost impossible because of the pain. I presume flare-up of the left hip arthritis. General: No pedal edema Psych Speech and movement: Normal speech and movement present Affect: normal affect Attitude: cooperative Thought process: Normal thought process present Thought content: Normal thought content present Insight: Good insight present (Psych) Judgement: Good judgement present (Psych) Results Reviewed Results Reviewed: CT scan of the pelvis without contrast 02/12/2024. Findings: No acute intrapelvic findings appendix is normal no pelvic small bowel and colon are normal in caliber without significant surrounding fat stranding. Bladder is unremarkable. Small dystrophic calcifications in the central prostate. Mild degenerative disc disease in lower lumbar spine at L5-S1 with mild associated facet arthropathy. Mild osteoarthritis is evident in both hip characterized by marginal osteophytes at the acetabulum and minimal joint space narrowing. There was a 6 mm bony island left issue. A 5 mm bony island present in right sacral ala no suspicious osseous lesions. Pelvic musculature is unremarkable. No appreciative atrophy or fatty replacement. Assessment & Plan Assessment & Plan (1) Arthritis of left hip: Code(s): M16.12 - Unilateral primary osteoarthritis, left hip Category: Medical (2) Spinal stenosis of lumbar region: Code(s): M48.061 - Spinal stenosis, lumbar region without neurogenic claudication Category: Medical Qualifiers: Neurogenic claudication status: unspecified Qualified Code(s): M48.061 - Spinal stenosis, lumbar region without neurogenic claudication (3) Bone island: Code(s): M89.8X9 - Other specified disorders of bone, unspecified site Category: Medical Plan Left hip steroid injection gave us very good results. The patient continues to report pain 2/10 it has been 3 months since the procedure. I am willing to continue this as long as it helps the patient. If he wants to repeat the injection when his pain will come back I recommend him to call us and schedule the procedure. CT scan dictation as above positive for bony island. No issues from that finding. No follow-up is required. Consult with bariatric surgery offered to the patient, however the patient is reluctant to go for the bariatric surgery. Patient Instructions: I here by testify that I spent 35 minutes in conversation with this patient as well as evaluating his diagnostic study report as well as evaluating pelvic images on CT scan and planning the future care. Coding Level of Care Code Est Pt Level 4 (39480) Diagnoses Arthritis of left hip M16.12 Spinal stenosis of lumbar region, unspecified whether neurogenic claudication present M48.061 Neurogenic claudication status: unspecified Bone island M89.8X9
[2024-03-03 11:33] VITALS: BP 136/98; PULSE 82; RESP 18; O2SAT 95; BMI 56.2
== END 2024-03-03 11:47 | disposition home or self-care (01) ==
PROVIDERS: PCP Internal Medicine; Visit Provider Anesthesiology
DX: M16.12 Unilateral primary osteoarthritis, left hip (principal); M48.061 Spinal stenosis, lumbar region without neurogenic claudication; M89.8X9 Other specified disorders of bone, unspecified site
CPT/HCPCS: 99214

== ENCOUNTER → 2024-03-03 11:10 | Outpatient (BNVA) | payer OTHER, SELFPAY | PROVIDERS: PCP Internal Medicine; Visit Provider Anesthesiology | DX: M16.12 Unilateral primary osteoarthritis, left hip (principal); M48.061 Spinal stenosis, lumbar region without neurogenic claudication; M89.8X9 Other specified disorders of bone, unspecified site | CPT/HCPCS: 99212 ==

== ENCOUNTER 2024-03-23 07:32 | Outpatient (REF) | payer OTHER, SELFPAY ==
[2024-03-23 13:10] LABS: MANUAL DIFF FLAG NO
[2024-03-23 13:14] LABS: Hemoglobin 14.9 g/dl (14.0-18.0); Imm Gran Abs Auto 0.02 X10*3/uL (0.00-0.03); Imm Gran Pct Auto 0.4 % (0.0-0.4); Lymphocytes Absolute Auto 2.2 X10*3/uL (1.2-4.9); Lymphocytes Percent Auto 41.8 % (20-40); Mean Corpuscular HGB Conc 33.9 g/dl (31.0-36.0); Mean Corpuscular Hemoglobin 28.3 pg (27.0-33.0); Mean Corpuscular Volume 83.7 fL (80.0-98.0); Monocytes Absolute Auto 0.4 X10*3/uL (0.1-1.2); Monocytes Percent Auto 8.3 % (2-11); Neutrophils Absolute Auto 2.6 x10*3/uL (2.0-8.3); Neutrophils Percent Auto 49.5 % (45-73); Platelet Count 216 X10*3/uL (160-400); Red Blood Count 5.26 X10*6/uL (4.60-5.80); Red Cell Distribution Width 13.7 % (11.0-16.0); White Blood Count 5.2 X10*3/uL (4.8-10.8)
[2024-03-23 13:30] LABS: Alanine Aminotransferase 57 U/L (0-40); Albumin Level 4.4 g/dL (3.5-5.0); Alkaline Phosphatase 67 U/L (39-117); Anion Gap 12 (12-20); Aspartate Amino Transferase 39 U/L (5-37); Blood Urea Nitrogen 8 mg/dL (9-16); C Reactive Protein 0.84 mg/dL (< or = 0.50); Calcium 9.7 mg/dL (8.4-10.2); Carbon Dioxide 28 mmol/L (22-29); Chloride 106 mmol/L (96-108); Estimated Glomerular Filt Rate > 60; Glucose Random 98 mg/dL (60-115); Potassium 4.2 mmol/L (3.3-5.1); Sodium 142 mmol/L (135-145); Total Protein 7.2 g/dL (6.5-8.0)
[2024-03-23 13:52] LABS: Erythrocyte Sedimentation Rate 12 MM/HR (0-15)
== END 2024-03-23 07:33 | disposition home or self-care (01) ==
LOC: HO.WFDLDS 07:32
PROVIDERS: Visit Provider Student in an Organized Health Care Education/Training Program
DX: M13.80 Other specified arthritis, unspecified site (principal)
CPT/HCPCS: 36415; 80053; 85025; 85652; 86140

== ENCOUNTER 2024-03-29 10:13 | Outpatient (AMB) | payer OTHER, SELFPAY ==
--- NOTE | 2024-03-29 10:16 | A.OFFVIS_ITS ---
Vital Signs 03/29/24 10:24 Height 5 ft 10 in Weight 403 lb 7.135 oz BMI 57.9 BP 140/98 H Blood Pressure Location Lt brachial Position Sitting Respiration 18 Pulse 83 Pulse Source Pulse Oximeter Pulse Oximetry (%) 95 Oxygen Delivery Method Room Air Intake Visit Reasons: PsA/cm Intake Note: Patient presents for PsA. Still having muscle spasm on left lower leg and getting chills on lower extremities Allergies diphenhydramine [From Benadryl] Allergy (Unknown, Verified 03/29/24 10:22) Unknown methotrexate Adverse Reaction (Severe, Verified 03/29/24 10:22) Nausea Medication List - Last Reconciled 03/29/24 by Donna Rodriguez MD bimatoprost 0.01% (Lumigan) 1 drp ophthalmic (eye) DAILY brimonidine 0.2% 1 drp ophthalmic-Right BID cyclobenzaprine 5 mg PO BEDTIME dorzolamide-timolol 22.3-6.8 mg/mL 1 drp ophthalmic (eye) BID etanercept (Enbrel SureClick) 50 mg subcut QWEEK famotidine (Pepcid) 20 mg PO DAILY ibuprofen 800 mg PO .QD pilocarpine HCl 2% 1 drp ophthalmic (eye) QID HPI Comments Details: 39-year-old male with seronegative arthritis returns for follow-up. Remains on Enbrel 50 mg daily. He was evaluated by pain management and had a left hip steroid injection with significant improvement. States that he gets going sensation in his legs, more on the left leg. He gets low back pain and hip pain when in certain positions at work such as being on his knees and getting stuff from cages. Has not had any swollen joints. He had a sinus infection recently and was treated with prednisone and antibiotics Initial history: This is a 37-year-old morbidly obese male with a past medical history of ADHD, GERD, RAFFI, schizophrenia presents for evaluation of chronic headaches and bilateral hand stiffness. Patient has had headaches for many years. He was evaluated by Neurology before and no diagnosis was reached. Patient states he has had recurrent headaches with bilateral temporal swelling for years. Over the last 2 weeks patient has noticed stiffness of both hands and reduced finger flexion bilaterally. This is associated with morning stiffness lasting 30 minutes. Patient works at [employer] and his job entails moving heavy objects. There is no history of psoriasis. Patient states he has injured his left ankle multiple times and had multiple ankle sprains and Achilles tendinitis. He also has left knee pain usually worse when he is on his feet. He takes Advil 600 mg 3 times a day on the days that his left leg bothers him. Denies history of psoriasis. No known family history of autoimmune rheumatic disease. 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 [employer] Review of Systems [facility] Reports back pain, Reports arthralgias and Reports stiffness Physical Exam Vital Signs: Last Vital Signs Pulse 83 03/29/24 10:24 Resp 18 03/29/24 10:24 BP 140/98 H 03/29/24 10:24 Pulse Ox 95 03/29/24 10:24 Oxygen Delivery Method Room Air 03/29/24 10:24 BMI result Body Mass Index 57.9 Const General: cooperative Nutritional Appearance: obese morbidly obese Orientation/consciousness: patient oriented x3 Limitations: no limitations HEENT Head: Yes normocephalic and Yes atraumatic Mouth: moist mucous membranes Resp Effort & Inspection: normal respiratory effort and able to speak in complete sentences GI Inspection: No distended Palpation (GI): Soft to palpation and nontender Skin Other: Could not appreciate any psoriatic patches Neuro General: patient oriented x3 Extrem Other: No active synovitis today Negative MTP and negative MCP squeeze test bilaterally Assessment & Plan Assessment & Plan (1) Seronegative arthritis: Comment: seroneg RA vs PsA Multiple tender and swollen joints and high inflammatory markers with excellent response to prednisone MTX started 01/11 effective but caused nausea DC 04/12 Enbrel 04/12 effective Code(s): M13.80 - Other specified arthritis, unspecified site Category: Medical Plan: This is a 39-year-old male with seronegative arthritis, (seronegative rheumatoid arthritis versus psA) who presents for follow-up. On Enbrel 50 mg weekly. He is in remission. Continue Enbrel 50 mg subcu once weekly Labs before next visit in 4 months Infectious screening: Hepatitis panel and T spot -ve 2022 (2) Arthritis of left hip: Code(s): M16.12 - Unilateral primary osteoarthritis, left hip Category: Medical Plan: Received left hip cortisone injection by Dr. Bess 12/2023 can with significant improvement (3) Spinal stenosis of lumbar region: Code(s): M48.061 - Spinal stenosis, lumbar region without neurogenic claudication Category: Medical Qualifiers: Neurogenic claudication status: unspecified Qualified Code(s): M48.061 - Spinal stenosis, lumbar region without neurogenic claudication Plan: Patient is having significant low back pain, buttock pain with certain activities and positions at work. He is requesting doctor's note for certain accommodations. He will find the paperwork and fax it over to me Plan I spent 26 minutes reviewing patient's chart, evaluating patient, ordering diagnostic workup, counseling patient and documenting in the chart Orders: Orders Comprehensive Met. Panel 4 Months M13.80 - Other specified arthritis, unspecified site Erythrocyte Sedimentation Rate 4 Months M13.80 - Other specified arthritis, unspecified site Complete Blood Count Auto Diff 4 Months M13.80 - Other specified arthritis, unspecified site C Reactive Protein 4 Months M13.80 - Other specified arthritis, unspecified site Coding Level of Care Code Est Pt Level 4 (11260) Diagnoses Seronegative arthritis M13.80 Arthritis of left hip M16.12 Spinal stenosis of lumbar region, unspecified whether neurogenic claudication present M48.061 Neurogenic claudication status: unspecified
[2024-03-29 10:24] VITALS: BP 140/98; PULSE 83; RESP 18; O2SAT 95; BMI 57.9
== END 2024-03-29 10:56 | disposition home or self-care (01) ==
PROVIDERS: PCP Internal Medicine; Visit Provider Student in an Organized Health Care Education/Training Program
DX: M16.12 Unilateral primary osteoarthritis, left hip (principal); M48.061 Spinal stenosis, lumbar region without neurogenic claudication
CPT/HCPCS: 99214

== ENCOUNTER → 2024-03-29 10:13 | Outpatient (BNVA) | payer OTHER, SELFPAY | PROVIDERS: PCP Internal Medicine; Visit Provider Student in an Organized Health Care Education/Training Program | DX: M13.80 Other specified arthritis, unspecified site (principal); M16.12 Unilateral primary osteoarthritis, left hip; M48.061 Spinal stenosis, lumbar region without neurogenic claudication; Z79.899 Other long term (current) drug therapy | CPT/HCPCS: 99212 ==

== ENCOUNTER 2024-07-28 06:00 | Outpatient (REF) | payer OTHER, SELFPAY ==
[2024-07-28 06:15] LABS: MANUAL DIFF FLAG NO
[2024-07-28 07:15] LABS: Basophils Percent Auto 0.2 % (0-2); Eosinophils Percent Auto 0.2 % (0-4); Hematocrit 40.4 % (42.0-52.0); Hemoglobin 14.2 g/dl (14.0-18.0); Imm Gran Abs Auto 0.02 X10*3/uL (0.00-0.03); Imm Gran Pct Auto 0.4 % (0.0-0.4); Lymphocytes Absolute Auto 1.9 X10*3/uL (1.2-4.9); Lymphocytes Percent Auto 41.4 % (20-40); Mean Corpuscular HGB Conc 35.1 g/dl (31.0-36.0); Mean Corpuscular Hemoglobin 28.3 pg (27.0-33.0); Mean Corpuscular Volume 80.5 fL (80.0-98.0); Mean Platelet Volume 10.9 fL (9.4-12.4); Monocytes Absolute Auto 0.4 X10*3/uL (0.1-1.2); Monocytes Percent Auto 8.1 % (2-11); Neutrophils Absolute Auto 2.3 x10*3/uL (2.0-8.3); Neutrophils Percent Auto 49.7 % (45-73); Platelet Count 202 X10*3/uL (160-400); Red Blood Count 5.02 X10*6/uL (4.60-5.80); Red Cell Distribution Width 13.6 % (11.0-16.0); White Blood Count 4.7 X10*3/uL (4.8-10.8)
[2024-07-28 07:50] LABS: Alanine Aminotransferase 46 U/L (0-40); Albumin Level 4.4 g/dL (3.5-5.0); Alkaline Phosphatase 71 U/L (39-117); Anion Gap 15 (12-20); Aspartate Amino Transferase 36 U/L (5-37); Bilirubin Total 0.8 mg/dL (0.0-1.0); Blood Urea Nitrogen 11 mg/dL (9-16); C Reactive Protein 0.61 mg/dL (< or = 0.50); Calcium 9.5 mg/dL (8.4-10.2); Carbon Dioxide 22 mmol/L (22-29); Chloride 110 mmol/L (96-108); Estimated Glomerular Filt Rate > 60; Glucose Random 105 mg/dL (60-115); Potassium 3.9 mmol/L (3.3-5.1); Sodium 143 mmol/L (135-145); Total Protein 7.2 g/dL (6.5-8.0)
[2024-07-28 07:57] LABS: Erythrocyte Sedimentation Rate 12 MM/HR (0-15)
== END 2024-07-28 06:01 | disposition home or self-care (01) ==
LOC: HO.LAB 06:00
PROVIDERS: Visit Provider Student in an Organized Health Care Education/Training Program
DX: M13.80 Other specified arthritis, unspecified site (principal)
CPT/HCPCS: 36415; 80053; 85025; 85652; 86140

== ENCOUNTER 2024-08-02 07:51 | Outpatient (AMB) | payer OTHER, SELFPAY ==
--- NOTE | 2024-08-02 07:57 | MHC.OFFVIS ---
Vital Signs 08/02/24 08:02 Height 5 ft 10 in Weight 399 lb 0.587 oz BMI 57.2 BP 142/80 H Blood Pressure Location Rt radial Position Sitting Pulse 9 L Pulse Source Pulse Oximeter Pulse Oximetry (%) 92 Oxygen Delivery Method Room Air Intake Visit Reasons: RA Intake Note: Patient presents for RA. Allergies diphenhydramine [From Benadryl] Allergy (Unknown, Verified 08/02/24 08:00) Unknown methotrexate Adverse Reaction (Severe, Verified 08/02/24 08:00) Nausea Medication List - Last Reconciled 08/02/24 by Donna Rodriguez MD bimatoprost 0.01% (Lumigan) 1 drp ophthalmic (eye) DAILY brimonidine 0.2% 1 drp ophthalmic-Right BID cyclobenzaprine 5 mg PO BEDTIME dorzolamide-timolol 22.3-6.8 mg/mL 1 drp ophthalmic (eye) BID Enbrel SureClick (etanercept) 50 mg subcut QWEEK NS famotidine (Pepcid) 20 mg PO DAILY ibuprofen 800 mg PO .QD pilocarpine HCl 2% 1 drp ophthalmic (eye) QID HPI Comments Details: 39-year-old male with seronegative arthritis returns for follow-up. Remains on Enbrel 50 mg daily. He states that he has been more achy recently. He has been more achy recently. He took on a new role at work. He has been working harder recently. Last month. 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 He had to have urgent surgery. He was asked not to take NSAIDs afterwards. He will be re-evaluated soon. Initial history: This is a 37-year-old morbidly obese male with a past medical history of ADHD, GERD, RAFFI, schizophrenia presents for evaluation of chronic headaches and bilateral hand stiffness. Patient has had headaches for many years. He was evaluated by Neurology before and no diagnosis was reached. Patient states he has had recurrent headaches with bilateral temporal swelling for years. Over the last 2 weeks patient has noticed stiffness of both hands and reduced finger flexion bilaterally. This is associated with morning stiffness lasting 30 minutes. Patient works at [employer] and his job entails moving heavy objects. There is no history of psoriasis. Patient states he has injured his left ankle multiple times and had multiple ankle sprains and Achilles tendinitis. He also has left knee pain usually worse when he is on his feet. He takes Advil 600 mg 3 times a day on the days that his left leg bothers him. Denies history of psoriasis. No known family history of autoimmune rheumatic disease. [facility] Medical History Glaucoma Schizophrenia ADHD Morbid obesity GERD (gastroesophageal reflux disease) Iron deficiency anemia Sleep apnea Migraines Surgical History History of tonsillectomy and adenoidectomy Family History Mother OCD (obsessive compulsive disorder) Father Diabetes Maternal Aunt Scoliosis Cancer of lung Social History Household Members Other:: Lives with parents Housing: House Alcohol intake: never Patient Tobacco Use Status: Never used Tobacco e-Cigarette/Vaping Use: Never Used Substance Use Type: Marijuana service: No Current occupational status: employed 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 [employer] Review of Systems [facility] Reports back pain, Reports arthralgias and Reports stiffness Physical Exam Vital Signs: Last Vital Signs Pulse 9 L 08/02/24 08:02 BP 142/80 H 08/02/24 08:02 Pulse Ox 92 08/02/24 08:02 Oxygen Delivery Method Room Air 08/02/24 08:02 BMI result Body Mass Index 57.2 Const General: cooperative Nutritional Appearance: obese morbidly obese Orientation/consciousness: patient oriented x3 Limitations: no limitations HEENT Head: Yes normocephalic and Yes atraumatic Mouth: moist mucous membranes Resp Effort & Inspection: normal respiratory effort and able to speak in complete sentences GI Inspection: No distended Palpation (GI): Soft to palpation and nontender Skin Other: Could not appreciate any psoriatic patches Neuro General: patient oriented x3 Extrem Other: No swollen joints today. Multiple tender MCPs, PIP is, DIPs bilaterally Negative MTP and negative MCP squeeze test bilaterally Assessment & Plan Assessment & Plan (1) Seronegative arthritis: Comment: seroneg RA vs PsA Multiple tender and swollen joints and high inflammatory markers with excellent response to prednisone MTX started 01/11 effective but caused nausea DC 04/12 Enbrel 04/12 effective Code(s): M13.80 - Other specified arthritis, unspecified site Category: Medical Plan: This is a 39-year-old male with seronegative arthritis, (seronegative rheumatoid arthritis versus psA) who presents for follow-up. On Enbrel 50 mg weekly. He is in remission. His symptoms today are mechanical and degenerative Continue Enbrel 50 mg subcu once weekly Labs before next visit in 6 months Infectious screening: Hepatitis panel and T spot -ve 2022 (2) High risk medication use: Code(s): Z79.899 - Other director long term care (current) drug therapy Category: Medical Plan: Side effects of Enbrel were discussed with the patient in detail including increased risk of infection, demyelinating disease, reactivation of latent TB, possible increased risk of solid and skin tumors. Patient fully aware. Advised patient to seek medical care MIKE if patient has an infection and advised patient to stop the medication until the infection is resolved. (3) Morbid obesity due to excess calories: Code(s): E66.01 - Morbid (severe) obesity due to excess calories Category: Medical Plan: Patient has been having difficulty finding and PCP. He has an appointment with Dr. Anthony Altman in 11/2024. Discussed with patient that his obesity probably contributes to much of his symptoms. He has RAFFI and could not use CPAP machine. His sleep apnea likely contributes to his generalized pain. Discussed with patient that medications such as Ozempic can be considered for his morbid obesity. Plan I spent 26 minutes reviewing patient's chart, evaluating patient, ordering diagnostic workup, counseling patient and documenting in the chart Orders: Orders Complete Blood Count Auto Diff 6 Months M13.80 - Other specified arthritis, unspecified site C Reactive Protein 6 Months M13.80 - Other specified arthritis, unspecified site Erythrocyte Sedimentation Rate 6 Months M13.80 - Other specified arthritis, unspecified site T Spot TB 6 Months Z11.7 - Encounter for testing for latent tuberculosis infection Comprehensive Met. Panel 6 Months M13.80 - Other specified arthritis, unspecified site Hepatitis A,B,C Profile 6 Months Z11.59 - Encounter for screening for other viral diseases Medications: Refilled Enbrel SureClick (etanercept) 50 mg subcut QWEEK 4 mL 5RF NS M13.80 - Other specified arthritis, unspecified site Coding Level of Care Code Est Pt Level 4 (73887) Complex EM visit Add On G2211 Diagnoses Seronegative arthritis M13.80 High risk medication use Z79.899 Morbid obesity due to excess calories E66.01
[2024-08-02 08:02] VITALS: BP 142/80; PULSE 9; O2SAT 92; BMI 57.2
== END 2024-08-02 08:21 | disposition home or self-care (01) ==
PROVIDERS: PCP Family Medicine; Visit Provider Student in an Organized Health Care Education/Training Program
DX: M13.80 Other specified arthritis, unspecified site (principal); Z79.899 Other long term (current) drug therapy; E66.01 Morbid (severe) obesity due to excess calories
CPT/HCPCS: 99214; G2211

== ENCOUNTER → 2024-08-02 07:51 | Outpatient (BNVA) | payer OTHER, SELFPAY | PROVIDERS: PCP Family Medicine; Visit Provider Student in an Organized Health Care Education/Training Program | DX: M13.80 Other specified arthritis, unspecified site (principal); M25.642 Stiffness of left hand, not elsewhere classified; M25.641 Stiffness of right hand, not elsewhere classified; E66.01 Morbid (severe) obesity due to excess calories; G47.33 Obstructive sleep apnea (adult) (pediatric); Z79.899 Other long term (current) drug therapy; Z68.43 Body mass index [BMI] 50.0-59.9, adult | CPT/HCPCS: 99212 ==

== ENCOUNTER 2024-10-11 11:26 | Emergency (ER) | payer OTHER, SELFPAY ==
--- NOTE | ~2024-10-11 | CT_ITS ---
EXAMINATION: CT ABDOMEN AND PELVIS WITHOUT CONTRAST CLINICAL INFORMATION: Nausea/vomiting and left-sided abdominal pain. COMPARISON: None available. TECHNIQUE: Multidetector volumetric imaging was performed from the superior aspect of the liver through the pubic symphysis. Sagittal and coronal reformatted images were obtained on the technologist's workstation. This CT examination was performed using dose optimization techniques as appropriate, variously including the following: *Automated exposure control *Adjustment of mA and/or kV according to patient size (this includes techniques or standardized protocols for targeted exams where dose is matched to indication/reason for exam; i.e. extremities or head) *Use of iterative reconstruction technique [id number] FINDINGS: LUNG BASES: The visualized lung bases are unremarkable. LIVER, GALLBLADDER, AND BILIARY TREE: The liver is normal in size, shape, and attenuation. No focal hepatic lesion or biliary ductal dilatation is present. The gallbladder is unremarkable with no evidence of radiopaque gallstones, gallbladder wall thickening, or obvious pericholecystic inflammatory changes. PANCREAS: Unremarkable. SPLEEN: Spleen measures 15 cm in length and appears unremarkable. ADRENAL GLANDS: Unremarkable. KIDNEYS AND URETERS: The kidneys are normal in size, shape, and attenuation. No hydronephrosis, hydroureter, or calculi seen. No perinephric stranding. BLADDER: Unremarkable. GASTROINTESTINAL TRACT: There is scattered stool, gas seen throughout the colon without distention. The small bowel loops are normal caliber. Appendix is normal caliber. No free air, inflammatory process or free fluid. ABDOMINAL WALL: There is a small umbilical hernia containing fat. LYMPH NODES: Normal. VASCULAR: Unremarkable. PELVIC VISCERA: Unremarkable. OSSEOUS STRUCTURES: No aggressive lytic or sclerotic process seen there is posterior spondylosis L1-2 and L2-[address]/CT abdomen pelvis wo IV con IMPRESSION: No acute intra-abdominal process seen there is Fleischner guidelines were followed. Electronically signed by: Chino Lucero MD 10/11/2024 01:02 PM DESTINY
[2024-10-11 11:36] VITALS: BP 118/63; PULSE 83; RESP 20; TEMP 36.7; O2SAT 96; BMI 56.5
--- NOTE | 2024-10-11 11:36 | ED_ITS ---
HPI - Abdominal Pain General Chief Complaint: Abdominal Pain Stated Complaint: Abd pain, vomiting - sent by Dr Time Seen by Provider: 10/11/24 19:49 Source: patient Mode of arrival: ambulatory Limitations: no limitations History of Present Illness ED Provider: Neo Tatum PA-C HPI narrative: 39 yo male with history of morbid obesity who presents to the ER for evaluation of N/V and abdominal pain that started yesterday. He went to walk in clinic today at [facility] and was sent to the ER for further evaluation. Has had 3BMs, very loose and nonbloody. dry heaving in triage. He denies any recent travel, has not been on antibiotics recently. No fevers. No urinary symptoms. No known sick contacts. MD elicited complaint: abdominal pain and other (N/V/D) Pertinent past history: none Onset (ago): hour(s) Pain Consistency: constant Location: LUQ and LLQ Severity: moderate Quality: cramping and aching Radiation: none Migration to: no migration Exacerbating factors: eating Relieving factors: nothing Associated symptoms: nausea, vomiting and diarrhea Related Data Home Medications ?Medication ?Instructions ?Recorded ?Confirmed bimatoprost 0.01 % eye drops 1 drp ophthalmic (eye) DAILY 10/06/22 08/02/24 (Lumigan) dorzolamide 22.3 mg-timolol 6.8 1 drp ophthalmic (eye) BID 12/26/22 08/02/24 mg/mL eye drops brimonidine 0.2 % eye drops 1 drp ophthalmic-Right BID 04/08/23 08/02/24 pilocarpine HCl 2 % eye drops 1 drp ophthalmic (eye) QID 04/08/23 08/02/24 ibuprofen 800 mg tablet 800 mg PO .QD 11/26/23 08/02/24 Previous Rx's ?Medication ?Instructions ?Recorded famotidine 20 mg tablet (Pepcid) 20 mg PO DAILY #60 tabs 09/07/23 cyclobenzaprine 5 mg tablet 5 mg PO BEDTIME for muscle spasm 07/05/24 #30 tabs Enbrel SureClick 50 mg/mL (1 mL) 50 mg subcut QWEEK #4 mL 08/02/24 subcutaneous pen injector (etanercept) dicyclomine 10 mg capsule 10 mg PO TID PRN abdominal pain 10/11/24 #14 caps loperamide 2 mg tablet 2 mg PO Q6H PRN loose stool #10 10/11/24 (Anti-Diarrheal (loperamide)) tabs ondansetron 4 mg disintegrating 4 mg PO Q8H PRN nausea and 10/11/24 tablet vomiting #7 tabs Allergies Allergy/AdvReac Type Severity Reaction Status Date / Time diphenhydramine Allergy Unknown Unknown Verified 10/11/24 11:36 [From Benadryl] methotrexate AdvReac Severe Nausea Verified 10/11/24 11:36 Review of Systems Review of Systems Yes all other systems are reviewed and are negative [facility] Past Medical History Medical History Glaucoma Schizophrenia ADHD Morbid obesity GERD (gastroesophageal reflux disease) Iron deficiency anemia Sleep apnea Migraines Surgical History History of tonsillectomy and adenoidectomy Family History Family History Mother OCD (obsessive compulsive disorder) Father Diabetes Maternal Aunt Scoliosis Cancer of lung Social History Social History Household Members Other:: Lives with parents Housing: House Alcohol intake: never Patient Tobacco Use Status: Never used Tobacco Smoked in Last 30 Days: No e-Cigarette/Vaping Use: Never Used Substance Use Type: Marijuana service: No Current occupational status: employed 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 Oriented X3. Appears uncomfortable, dry heaving Head: normocephalic, atraumatic. Eyes: Pupils equal, round and reactive to light. ENT: Pharynx normal. No tonsillar swelling or exudate. Neck: Normal inspection. Neck supple. CVS: Normal heart rate and rhythm. Pulses normal. Respiratory: No respiratory distress. Breath sounds normal. Abdomen: Obese, Soft with moderate left (upper and lower) sided tenderness without guarding or rebound. +BS x4 Skin: Skin warm and dry. Normal skin color. Normal skin turgor. No rashes. Extremities: No lower extremity edema. No joint swelling. Neuro/psych: Oriented X 3. No motor deficit. No sensory deficit. CN II-XII intact. Normal speech and cognition. Medical Decision Making Medical Decision Making [facility] Narrative: 39-year-old male with history morbid obesity presents to the ER for evaluation of acute onset of vomiting and diarrhea for the last 24 hours. Started having left-sided abdominal pain today, went to the urgent care and was told to come to the ER for evaluation. He has dry heaving in triage. He was given sublingual Zofran. Lab workup is reassuring with no leukocytosis. LFTs are unremarkable aside from a mildly elevated ALT which is chronic. Bilirubin and alk-phos are normal. He has no right-sided abdominal tenderness on examination. Low suspicion for acute cholecystitis or biliary process. CT scan of the abdomen was done which showed no acute process. While in the waiting room patient went to the [employer] machine and eat a package of cookies. He tolerated it well. No vomiting. He was evaluated in triage and is overall feeling improved. At this time comfortable discharge home, most likely experiencing viral gastroenteritis. Will prescribe antiemetics, antidiarrheals and Bentyl for abdominal pain. Advised to follow-up with PCP this week. Stable for discharge home Differential Diagnosis Differential Diagnoses: The differential diagnosis associated with the presentation includes Gastroenteritis, diverticulitis, bowel obstruction, bowel perforation, colitis Admission/Observation Consideration of admission/observation: Escalation of care including admission/observation considered Lab Data [facility] Lab Attestation statement: I reviewed the patient's lab results. As above 10/11/24 12:16 10/11/24 12:16 Labs: Lab Results 10/11/24 10/11/24 Range/Units 12:12 12:16 WBC 5.6 (4.8-10.8) X10*3/uL RBC 5.05 (4.60-5.80) X10*6/uL Hgb 14.3 (14.0-18.0) g/dl Hct 40.2 L (42.0-52.0) % MCV 79.6 L (80.0-98.0) fL MCH 28.3 (27.0-33.0) pg MCHC 35.6 (31.0-36.0) g/dl RDW 13.2 (11.0-16.0) % Plt Count 210 (160-400) X10*3/uL MPV 10.3 (9.4-12.4) fL Immature Gran % (Auto) 0.4 (0.0-0.4) % Neut % (Auto) 51.4 (45-73) % Lymph % (Auto) 38.2 (20-40) % [place] % (Auto) 10.0 (2-11) % Eos % (Auto) 0.0 (0-4) % Baso % (Auto) 0.0 (0-2) % Lymph # (Auto) 2.1 (1.2-4.9) X10*3/uL [place] # (Auto) 0.6 (0.1-1.2) X10*3/uL Eos # (Auto) 0.0 (0.0-0.4) X10*3/uL Baso # (Auto) 0.0 (0.0-0.2) X10*3/uL Abs Immat Gran (auto) 0.02 (0.00-0.03) X10*3/uL Absolute Neuts (auto) 2.9 (2.0-8.3) x10*3/uL Absolute Nucleated RBC 0.000 (0.0-0.012) X10*3/uL Nucleated RBC % (auto) 0.0 (0.0-0.2) /100WBC Sodium 139 (135-145) mmol/L Potassium 3.8 (3.3-5.1) mmol/L Chloride 109 H (96-108) mmol/L Carbon Dioxide 25 (22-29) mmol/L Anion Gap 9 L (12-20) BUN 9 (9-16) mg/dL Creatinine 0.67 (0.5-1.4) mg/dL Estim Creat Clear Calc 241.3 Estimated GFR > 60 Random Glucose 103 (60-115) mg/dL Calcium 8.6 D (8.4-10.2) mg/dL Magnesium 2.0 (1.6-2.6) mg/dL Total Bilirubin 0.8 (0.0-1.0) mg/dL Direct Bilirubin 0.2 (0.0-0.5) mg/dL AST 31 (5-37) U/L ALT 44 H (0-40) U/L Alkaline Phosphatase 66 (39-117) U/L Total Protein 7.3 (6.5-8.0) g/dL Albumin 4.3 (3.5-5.0) g/dL Urine Color Yellow Urine Appearance Clear Urine pH 6.0 (5.0-9.0) Ur Specific [place] 1.015 (1.005-1.025) Urine Protein Negative (Neg-Trace) mg/dL Urine Glucose (UA) Negative (Negative) mg/dL Urine Ketones Negative (Negative) mg/dL Urine Blood Small (1+) H (Negative) Urine Nitrite Negative (Negative) Ur Leukocyte Esterase Negative (Negative) Urine RBC 0-2 (0-2) /HPF Urine WBC 0-5 (0-5) /HPF Ur Squamous Epith Cells 0-2 (0-2) /HPF Urine Bacteria None Seen (None Seen) Hyaline Casts 0-2 (0-2) /LPF Independent Interpretation I performed an independent interpretation of an: CT Scan Interpretation: CT scan without any air-fluid levels to suggest obstruction, no clonic stranding or abscess appreciated Radiology Impression Discussion of test interpretation with radiology: I have reviewed the radiologist's reading. External Record Review External record reviewed: Prior outpatient labs Prescription Management I considered prescription management with: Pain Medication and Antibiotic Medications Administered Discontinued Medications Generic Name Dose Route Start Last Admin Trade Name Freq PRN Reason Stop Dose Admin Ondansetron HCl 4 mg 10/11/24 11:40 10/11/24 11:42 Ondansetron Odt 4 Mg Tab.Rapdis TRANSLINGU 10/11/24 11:41 4 mg ONCE ONE Administration Critical Care Time Critical Care Time Critical Care Time: No Discharge Plan Discharge Clinical Impression: Gastroenteritis Patient Disposition: Home, Self-Care Instructions: Gastroenteritis (DC) Additional Instructions: Your CT scan today did not show any acute abnormalities You lab workup today was unremarkable. Your urine test was negative for infection. You most likely have a viral GI bug also known as gastroenteritis. Treatment is supportive care, symptoms usually resolve on their own in 48-72 hours. Recommend rest and plenty of oral hydration. Stick to a bland diet like soup and toast while you are not feeling well. Take the prescribed medication as needed for nausea. Recommend over the counter Pepto Bismol or Imodium for upset stomach and diarrhea. Follow up with your doctor as needed. If you develop new or worsening symptoms call 911 or come back to the ER for further evaluation. Prescriptions: New ondansetron 4 mg tablet,disintegrating 4 mg PO Q8H PRN (Reason: nausea and vomiting) Qty: 7 0RF dicyclomine 10 mg capsule 10 mg PO TID PRN (Reason: abdominal pain) Qty: 14 0RF loperamide [Anti-Diarrheal (loperamide)] 2 mg tablet 2 mg PO Q6H PRN (Reason: loose stool) Qty: 10 0RF No Action famotidine [Pepcid] 20 mg tablet 20 mg PO DAILY Qty: 60 1RF cyclobenzaprine 5 mg tablet 5 mg PO BEDTIME Qty: 30 1RF Lumigan 0.01 % drops 1 drp ophthalmic (eye) DAILY dorzolamide-timolol 22.3-6.8 mg/mL drops 1 drp ophthalmic (eye) BID pilocarpine HCl 2 % drops 1 drp ophthalmic (eye) QID brimonidine 0.2 % drops 1 drp ophthalmic-Right BID ibuprofen 800 mg tablet 800 mg PO .QD Enbrel SureClick 50 mg/mL (1 mL) pen injector 50 mg subcut QWEEK Qty: 4 5RF Referrals: Anthony Altman MD [Primary Care Provider] - Stand Alone Forms: Work/School Release Print Language: Uzbek
[2024-10-11] MEDS: Ondansetron ODT 4 MG TAB.RAPDIS TRANSLINGU (11:42)
[2024-10-11 12:19] LABS: MANUAL DIFF FLAG NO
[2024-10-11 12:21] LABS: Hematocrit 40.2 % (42.0-52.0); Hemoglobin 14.3 g/dl (14.0-18.0); Imm Gran Abs Auto 0.02 X10*3/uL (0.00-0.03); Imm Gran Pct Auto 0.4 % (0.0-0.4); Lymphocytes Absolute Auto 2.1 X10*3/uL (1.2-4.9); Lymphocytes Percent Auto 38.2 % (20-40); Mean Corpuscular HGB Conc 35.6 g/dl (31.0-36.0); Mean Corpuscular Hemoglobin 28.3 pg (27.0-33.0); Mean Corpuscular Volume 79.6 fL (80.0-98.0); Mean Platelet Volume 10.3 fL (9.4-12.4); Monocytes Absolute Auto 0.6 X10*3/uL (0.1-1.2); Neutrophils Absolute Auto 2.9 x10*3/uL (2.0-8.3); Neutrophils Percent Auto 51.4 % (45-73); Platelet Count 210 X10*3/uL (160-400); Red Blood Count 5.05 X10*6/uL (4.60-5.80); Red Cell Distribution Width 13.2 % (11.0-16.0); White Blood Count 5.6 X10*3/uL (4.8-10.8)
[2024-10-11 12:24] LABS: Appearance Urine Clear; Color Urine Yellow; Glucose Urine UA Negative (Negative); Leukocyte Esterase Urine Negative (Negative); Nitrite Urine Negative (Negative); Specific Gravity - Urine 1.015 (1.005-1.025); UMIC TRIGGER UACC YES; Urine Blood Small (1+) (Negative); Urine Ketones Negative (Negative); Urine Protein Negative (Neg-Trace)
[2024-10-11 12:35] LABS: Bacteria Urine None Seen (None Seen); Hyaline Casts Urine 0-2 /LPF (0-2); RBC Urine 0-2 /HPF (0-2); Squamous Epithelial Cell Urine 0-2 /HPF (0-2); WBC Urine 0-5 /HPF (0-5)
[2024-10-11 12:38] LABS: Alanine Aminotransferase 44 U/L (0-40); Albumin Level 4.3 g/dL (3.5-5.0); Alkaline Phosphatase 66 U/L (39-117); Anion Gap 9 (12-20); Aspartate Amino Transferase 31 U/L (5-37); Bilirubin Direct 0.2 mg/dL (0.0-0.5); Bilirubin Total 0.8 mg/dL (0.0-1.0); Blood Urea Nitrogen 9 mg/dL (9-16); Calcium 8.6 mg/dL (8.4-10.2); Carbon Dioxide 25 mmol/L (22-29); Chloride 109 mmol/L (96-108); Creatinine Clr Calc Pharmacy 241.3; Estimated Glomerular Filt Rate > 60; Glucose Random 103 mg/dL (60-115); Potassium 3.8 mmol/L (3.3-5.1); Sodium 139 mmol/L (135-145); Total Protein 7.3 g/dL (6.5-8.0)
[2024-10-11 19:47] VITALS: BP 145/77; PULSE 77; RESP 18; TEMP 37.1; O2SAT 98
--- NOTE | 2024-10-11 19:55 | PC.NURSE ---
Reeval by RME, cleared for DC home, tolerating PO in waiting room without difficulty per pt report.
[2024-10-11 19:56] VITALS: BP 145/77; PULSE 77; RESP 18; TEMP 37.1; O2SAT 98
--- OUTSIDE RECORDS SUMMARY | 2024-10-11 19:59 | XMS_ITS | Encounter Summary ---
Author Organization [facility] Address [address] [place] [address] Care Team Providers Care Case Advocate Name Role Phone Kira Blandon MD Primary Care Provider Reason for Visit * Reason Comments Migraine X 3 days Nausea Encounter Details Date Type Department Care Team (Late st Contact Info) Description 09/19/2024 9:00 AM EST Office Visit Walk-In Clinic [facility] [address] [place] [address] Lizeth Pollard NP [address] [place], [place] [id number] Intractable episodic headache, unspecified headache type (Primary Dx) Social History Tobacco Use Types Packs/Day Years Used Date Smoking Tobacco: Never Smokeless Tobacco: Never Alcohol Use Standard Drinks/Week Comments No 0 (1 standard drink = 0.6 oz pur e alcohol) Sex and Gender Information Value Date Recorded Sex Assigned at Not on file Gender Identity Not on file Sexual Orientation Not on file Job Start Date Occupation Industry Not on file Not on file Not on file documented as of this encounter Last Filed Vital Signs Vital Sign Reading Time Taken Comments Blood Pressure 122/82 09/19/2024 9:03 AM EST Pulse 91 09/19/2024 9:03 AM EST Temperature 36.2 ??C (97.2 ??F) 09/19/2024 9:03 AM ES T Respiratory Rate - - Oxygen Saturation 96% 09/19/2024 9:03 AM EST Inhaled Oxygen Concentration - - Weight - - Height - - Body Mass Index - - documented in this encounter Ordered Prescriptions Prescription Sig Dispensed Refills Start Date End Da te butalbital-acetaminophe n-caffeine (FIORICET, ESGIC) 50-325-40 mg per tablet Take 1 tablet by mouth every 6 (six) hours if needed for headaches for up to 10 days. Use no more than 5/day, 10/week, 30/month. 15 tablet 09/19/2024 09/29/2024 documented in this encounter Progress Notes * Lizeth Pollard NP - 09/19/2024 9:00 AM EST CHIEF COMPLAINT: No chief complaint on file. HPI: Eric Ramirez is a 39 y.o. old male who presents for evaluation of migraine headaches.. Patient has been seen in the past by primary care and neurology states he usually takes ibuprofen but is currently unable to secondary to eye issues. Patient was recently evaluated by local ophthalmology who did not feel headaches related to his underlying issues. Patient does note he lives in a home with a wood-burning stove which she feels may be exacerbating his symptoms ROS: Remainder of the 12 point review of symptoms unremarkable except for those idenitified in the HPI. PAST MEDICAL HISTORY: There are no problems to display for this patient. Past Surgical History: Procedure Laterality Date COLONOSCOPY 06/29/09 Triny PROCEDURE: HISTORICAL COLONOSCOPY; COMMENT: normal ESOPHAGOGASTRODUODENOSCOPY Triny PROCEDURE: [place] ESOPHAGOGASTRODUODENOSCOPY TRANSORAL DIAGNOSTIC; COMMENT: normal SOCIAL HISTORY: Social History Tobacco Use Smoking status: Never Smokeless tobacco: Never Substance Use Topics Alcohol use: No FAMILY HISTORY: Family History Problem Relation Name Age of Onset Other cancer Uncle maternal - ? esophageal cancer Blindness Neg Hx Cataracts Neg Hx Glaucoma Neg Hx Macular degeneration Neg Hx Strabismus Neg Hx Family Status Relation Name Status Uncle (Not Specified) Neg Hx (Not Specified) Father Alive both healthy Mother Alive Sister Alive healthy No partnership data on file MEDICATIONS DISCONTINUED/REORDERED: There are no discontinued medications. ACTIVE MEDICATIONS: No outpatient medications have been marked as taking for the 09/19/24 encounter (Appointment) with Lizeth Pollard NP. ALLERGIES: No Known Allergies PHYSICAL EXAM: There were no vitals filed for this visit. CONSTITUTIONAL: alert, calm, cooperative, in no acute distress HEAD: normocephalic, atraumatic EYES: pupils equal, round, reactive to direct and consensual light, accommodation reflex present, extraocular movement intact (EOMI), sclera non-icteric EARS: auditory canal clear, tympanic membrane intact and clear bilateral effusions NOSE: septum intact, no lesions, no discharge ORAL CAVITY: mucosa moist, gums normal, palate normal, tongue midline THROAT: no erythema, no exudate, pharynx normal, tonsils normal, uvula midline NECK/THYROID: neck range of motion grossly intact LYMPH: no cervical or supraclavicular lymphadenopathy SKIN: warm and dry HEART: S1, S2 normal, regular rate and rhythm, no murmurs, rubs, gallops LUNGS: clear to auscultation bilaterally, no wheezes, rales, rhonchi NEUROLOGIC: alert and oriented, no tremor, cranial nerves II-XII grossly intact PSYCH: mood/affect full range, speech clear, good eye contact, cooperative with exam LABS/IMAGING: IMPRESSION: Headache PLAN: The patient's PMH, problem list and medications were reviewed in reference to the above diagnosis/diagnoses. Offered to refer back to neurology declined patient currently with insurance issues. Continue ice, OTC Claritin Trudy or Zyrtec Fioricet sent to pharmacy Advised to follow up with PCP if symptoms do not improve. Advised to follow up with UC or PCP immediately for new or worsening symptoms. Educated on red flags symptoms. Advised to go to the ER or call 911 for these symptoms. Patient understands the plan. Patient verbalizes agreement with the plan. No orders of the defined types were placed in this encounter. Lizeth Pollard NP on 09/19/2024 at 9:01 AM EST Today's documentation was made using voice recognition software. This note may contain grammatical errors secondary to this software. documented in this encounter Plan of Treatment Not on file documented as of this encounter Visit Diagnoses Diagnosis Intractable episodic headache, unspecified headache type- Primary documented in this encounter Discontinued Medications Medication Sig Discontinue Reason Start Date End Da te prednisoLONE acetate (PRED FORTE) 1 % ophthalmic suspension Administer 1 drop into affected eye(s) 4 times daily. 06/29/2024 09/19/2024 documented as of this encounter Care Teams Case Advocate Relationship Specialty Start Date End Date Kira Blandon MD [address] [place] [id number] PCP - General 08/26/23 documented as of this encounter
--- OUTSIDE RECORDS SUMMARY | 2024-10-11 19:59 | XMS_ITS | Encounter Summary ---
Author Organization [employer] [facility] Address [address] [place] [address] Care Team Providers Care Production Line Worker Name Role Phone Kira Blandon MD Primary Care Provider Reason for Visit * Reason Comments Vomiting Vomiting, nausea, di arrhea, fatigue and chills x 2 days. Encounter Details Date Type Department Care Team (Late st Contact Info) Description 10/11/2024 10:15 AM EST Office Visit Walk-In Clinic - [address] [phone] Devon Gray PA [address] [place] [phone] Left lower quadrant abdominal pain (Primary Dx) Social History Tobacco Use Types [...] Sign Reading Time Taken Comments Blood Pressure 157/99 10/11/2024 10:19 AM EST Pulse 81 10/11/2024 10:19 AM EST Temperature 36.8 ??C (98.3 ??F) 10/11/2024 10:[address] Respiratory Rate - - Oxygen Saturation 98% 10/11/2024 10:19 AM EST Inhaled Oxygen Concentration - - Weight - - Height - - Body Mass Index - - documented in this encounter Progress Notes * MARGO Cutler - 10/11/2024 10:15 AM EST CHIEF COMPLAINT: Chief Complaint Patient presents with Vomiting Vomiting, nausea, diarrhea, fatigue and chills x 2 days. HPI: Eric Ramirez is a 39 y.o. old male presenting with abdominal pain in the lower abdomen beginning yesterday associated with nausea and vomiting 8 times yesterday, 6 times so far today. Denies blood in the vomit or coffee-ground emesis. He has been additionally having loose stools 3 times daily without blood in the stool or tar-like stool. Denies recent travel or undercooked foods. Pain is very severe to touch In the lower abdomen. Denies any head cold symptoms aside from sore throat. ROS: Remainder of the 12 point review of symptoms unremarkable except for those idenitified in the HPI. PAST MEDICAL HISTORY: There are no problems to display for this patient. Past Surgical History: Procedure Laterality Date COLONOSCOPY 06/29/09 Triny PROCEDURE: HISTORICAL COLONOSCOPY; COMMENT: normal ESOPHAGOGASTRODUODENOSCOPY Triny PROCEDURE: [place] ESOPHAGOGASTRODUODENOSCOPY TRANSORAL DIAGNOSTIC; COMMENT: normal SOCIAL HISTORY: [...] have been marked as taking for the 10/11/24 encounter (Office Visit) with MARGO Cutler. ALLERGIES: No Known Allergies PHYSICAL EXAM: Vitals: 10/11/24 1019 BP: (!) 157/99 Pulse: 81 Temp: 36.8 ??C (98.3 ??F) SpO2: 98% CONSTITUTIONAL: alert, calm, cooperative, in no acute distress HEAD: normocephalic, atraumatic EYES: pupils equal, round, reactive to direct and consensual light, accommodation reflex present, extraocular movement intact (EOMI), sclera non-icteric EARS: auditory canal clear, tympanic membrane intact and clear with anterior light reflex, no air-fluid levels bilaterally NOSE: septum intact, no lesions, no discharge [...] clear to auscultation bilaterally, no wheezes, rales, rhonchi. Respirations are of regular rate and rhythm without acute distress. ABDOMEN: Mildly firm, mildly distended. No rashes or ecchymosis. Tender diffusely to percussion. Marked tenderness to palpation left lower quadrant which elicits guarding and elicits immediate emesis. Right lower and left upper abdomen are additionally tender to palpation. Patient unable to tolerate further exam which was discontinued based on vomiting elicited by palpation of the abdomen. EXTREMITIES: no clubbing, cyanosis, or edema NEUROLOGIC: alert and oriented, no tremor, cranial nerves II-XII grossly intact PSYCH: mood/affect full range, speech clear, good eye contact, cooperative with exam LABS/IMAGING: COVID test negative. Influenza A/B test negative. No results found for: EGFR IMPRESSION: 1. Left lower quadrant abdominal pain PLAN: The patient's PMH, problem list and medications were reviewed in reference to the above diagnosis/diagnoses. Based on ROS, HPI, and PE, suggestive of abdominal pain with multiple findings concerning for peritonitis, and symptom location suggestive of diverticulitis. Abdominal exam is acute. He is hemodynamically stable at this time. Early signs of hypovolemia noted. Educated patient to the concerns of his findings and symptoms. Advised patient needs to be seen from the ER for imaging and further workup. Patient elects for [facility] ER as ER of choice. ER called to expect his arrival. Provided patient with emesis bag, and isopropyl alcohol swabs which he can sniff as needed to control nausea during transport. Transferring by personal vehicle. Advised to follow-up with PCP after ER visit. Advised to remain n.p.o. on the way to the hospital. Patient understands the plan. Patient verbalizes agreement with the plan. Orders Placed This Encounter Procedures Poc Rapid [id number], MOLECULAR POC Influenza A/B manually resulted MARGO Cutler on 10/11/2024 at 10:59 AM EST Today's documentation was made using voice recognition software. This note may contain grammatical errors secondary to this software. documented in this encounter Plan of Treatment Not on file documented as of this encounter Procedures Procedure Name Priority Date/Time Associated Diagnosis Comments POC INFLUENZA A/B Routine 10/11/2024 11: 09 AM EST Left lower quadrant abdominal pain POC RAPID [id number], MOLECULAR Routine 10/11/2024 11:08 AM EST Left lower quadrant abdominal pain documented in this encounter Results * POC Influenza A/B manually resulted (10/11/2024 11:09 AM EST) Rapid Influenza A AGN POC Negative Negative Rapid Influenza B AGN POC Negative Negative Internal Control Pass Yes Yes Swab 10/11/2024 11:0 9 AM EST Devon ARAGON POINT OF CARE TEST ENTER/EDIT ORDERABLES * Poc Rapid [id number], MOLECULAR (10/11/2024 11:08 AM EST) COVID-19/SARS- COV-2 Rapid POC Negative Negative Internal Control Pass Yes Yes Swab Nasopharyngeal structure / Unknown 10/11/2024 11:08 AM EST Devon ARAGON POINT OF CARE TEST ENTER/EDIT ORDERABLES documented in this encounter Visit Diagnoses Diagnosis Left lower quadrant abdominal pain- Primary documented in this encounter Care Teams Production Line Worker Relationship Specialty Start Date End Date Kira Blandon MD [address] [place] [phone] PCP - General 08/26/23 documented as of this encounter
--- OUTSIDE RECORDS SUMMARY | 2024-10-11 19:59 | XMS_ITS | Clinical Summary ---
Author Organization [address] [place] [address] [place] [phone] Phone Care Team Providers Care Stud Beef Cattle Farmer Name Role Phone Kira Blandon MD Primary Care Provider Allergies No known active allergies Medications Medication Sig Dispensed Refills Start Date End Date Status adalimumab (Humira) 40 mg/0.8 mL syringe Inject under the skin. Active Lumigan 0.01 % ophthalmic drops INSTILL 1 DROP INTO BOTH EYES EVERY NIGHT AT BEDTIME 11/13/2020 Active brimonidine (ALPHAGAN) 0.2 % ophthalmic solution 1 drop 2 times daily. 10/10/2022 Active cyclobenzaprine (FLEXERIL) 5 mg tablet TAKE 1 TABLET BY MOUTH AT BEDTIME FOR FOR MUSCLE SPASMS Active dorzolamide (TRUSOPT) 2 % ophthalmic solution Administer 1 drop into both eyes 2 (two) times a day. Active sodium chloride (OCEAN) 0.65 % nasal spray Administer 1 spray into affected nostril(s) once daily as needed. Active timolol (TIMOPTIC) 0.5 % ophthalmic solution Administer 1 drop into both eyes 2 (two) times a day. 03/30/2024 Active prednisoLONE acetate (PRED FORTE) 1 % ophthalmic suspension Administer 1 drop into affected eye(s) 4 times daily. 06/29/2024 09/19/2024 Discontinued () butalbital-aceta minophen-caffein e (FIORICET, ESGIC) 50-325-40 mg per tablet Take 1 tablet by mouth every 6 (six) hours if needed for headaches for up to 10 days. Use no more than 5/day, 10/week, 30/month. 15 tablet 09/19/2024 09/29/2024 Active Problems No known active problems Encounters Date Type Department Care Team Description 10/11/2024 10:15 AM EST Office Visit Walk-In Clinic - [place] [address] [place] [address] Devon Gray PA Left lower quadrant abdominal pain (Primary Dx) 09/19/2024 9:00 AM EST Office Visit [address] [phone] Lizeth Pollard NP Intractable episodic headache, unspecified headache type (Primary Dx) 07/27/2024 3:30 PM EST Office Visit [address] [phone] Devon Gray PA Viral URI (Primary Dx) from Last 3 Months Surgical History Surgery Date Site/Laterality Comments COLONOSCOPY 06/29/09 Lauren PROCEDURE: HISTORICAL COLONOSCOPY; COMMENT: normal ESOPHAGOGASTRODUODENOSCOPY Triny PROCEDURE: [place] ESOPHAGOGASTRODUODENOSCOPY TRANSORAL DIAGNOSTIC; COMMENT: normal Medical History Medical History Date Comments Esophageal reflux 05/11/2006 DX:Esophageal reflux Family History Medical History Relation Name Comments Other cancer Uncle maternal - ? es ophageal cancer Blindness Neg Hx Cataracts Neg Hx Glaucoma Neg Hx Macular degeneration Neg Hx Strabismus Neg Hx Relation Name Status Comments Father Alive both healthy Mother Alive Sister Alive healthy Uncle Social History Tobacco Use Types Packs/Day Years [...] file Not on file Not on file Obstetrics History Last Filed Vital Signs Vital Sign Reading Time Taken Comments Blood Pressure 157/99 10/11/2024 10:19 AM EST Pulse 81 10/11/2024 10:19 AM EST Temperature 36.8 ??C (98.3 ??F) 10/11/2024 10:[address] Respiratory Rate - - Oxygen Saturation 98% 10/11/2024 10:19 AM EST Inhaled Oxygen Concentration - - Weight 161 kg (356 lb) 02/26/2024 8:48 AM EDT Height 177.8 cm (5' 10 ) 02/26/2024 8:48 AM EDT Body Mass Index 51.08 02/26/2024 8:48 AM EDT Plan of Treatment Health Maintenance Due Date Last Done Comments Hepatitis B Vaccines (2 of 3 - 19+ 3-dose series) 06/09/2013 05/12/2013 Cholesterol Screening (Lipid Panel) 08/24/2022 Depression Screening 08/24/2022 Social Influencers of Health Screening 08/24/2022 COVID-19 Vaccine (4 - season) 2024 10/04/2021, 02/16/2021, 01/26/2021 Influenza Vaccine (#1) 2024 , 10/04/2021, 05/21/2019, Additional history exists DTaP,Tdap,and Td Vaccines (4 - Td or Tdap) 05/07/2031 05/07/2021, 05/16/2008, 05/03/1997 Meningococcal ACWY Vaccine Aged Out 01/30/2005 N o longer eligible based on patient's age to complete this topic HIV Screening Completed 06/29/2024 Hepatitis C Screening Completed 06/29/2024 HIB Vaccines Aged Out No longer eligi ble based on patient's age to complete this topic HPV Vaccines Aged Out No longer eligi ble based on patient's age to complete this topic Hepatitis A Vaccines Aged Out No long er eligible based on patient's age to complete this topic IPV Vaccines Aged Out No longer eligi ble based on patient's age to complete this topic MMR Vaccines Aged Out No longer eligi ble based on patient's age to complete this topic Pneumococcal Vaccine: Pediatrics (0 to 5 Years) and At-Risk Patients (6 to 64 Years) Aged Out No longer eligible based on patient's age to complete this topic RSV Immunization Patients Under 20 months Aged Out No longer eligible based on patient's age to complete this topic Varicella Vaccines Aged Out No longer eligible based on patient's age to complete this topic Procedures Procedure Name Priority Date/Time Associated Diagnosis Comments POC INFLUENZA A/B Routine 10/11/2024 11: 09 AM EST Left lower quadrant abdominal pain POC RAPID [id number], MOLECULAR Routine 10/11/2024 11:08 AM EST Left lower quadrant abdominal pain POC RAPID STREP A Routine 07/27/2024 5:0 8 PM EST Viral URI POC RAPID [id number], MOLECULAR Routine 07/27/2024 5:07 PM EST Viral URI from Last 3 Months Results * POC Influenza A/B manually resulted (10/11/2024 11:09 AM EST) Rapid Influenza A AGN POC Negative Negative Rapid Influenza B AGN POC Negative Negative Internal Control Pass Yes Yes Swab 10/11/2024 11:0 9 AM EST Devon ARAGON POINT OF CARE TEST ENTER/EDIT ORDERABLES * Poc Rapid [id number], MOLECULAR (10/11/2024 11:08 AM EST) Only the most recent of2 resultswithin the time period is included. Pathologist [facility] COVID-19/SARS- COV-2 Rapid POC Negative Negative Internal Control Pass Yes Yes Swab Nasopharyngeal structure / Unknown 10/11/2024 11:08 AM EST Devon ARAGON POINT OF CARE TEST ENTER/EDIT ORDERABLES * POC rapid strep A manually resulted (07/27/2024 5:08 PM EST) [facility] Rapid Strep A Screen POC Negative Negative Swab Structure of anterior portion of neck / Unknown 07/27/2024 5:08 PM EST Devon ARAGON POINT OF CARE TEST ENTER/EDIT ORDERABLES from Last 3 Months Care Teams Stud Beef Cattle Farmer Relationship Specialty Start Date End Date Kira Blandon MD [address] [place] [id number] PCP - General 08/26/23
== END 2024-10-11 20:03 | disposition home or self-care (01) ==
LOC: HO.ED 19:58
PROVIDERS: Physician Assistant; Emergency Provider Emergency Medicine Emergency Medical Services; PCP Family Medicine
DX: K52.9 Noninfective gastroenteritis and colitis, unspecified (principal); R10.2 Pelvic and perineal pain; R11.2 Nausea with vomiting, unspecified; R10.12 Left upper quadrant pain; R10.32 Left lower quadrant pain; Z79.899 Other long term (current) drug therapy
CPT/HCPCS: 36415; 74176; 80048; 80076; 81001; 83735; 85025; 99283; 99284

== ENCOUNTER → 2024-10-11 11:39 | Outpatient (BNV) | payer OTHER, SELFPAY | PROVIDERS: PCP Family Medicine; Visit Provider Radiology Diagnostic Radiology | DX: R10.9 Unspecified abdominal pain (principal); R11.2 Nausea with vomiting, unspecified | CPT/HCPCS: 74176 ==

== ENCOUNTER 2024-12-23 09:43 | Outpatient (REF) | payer OTHER, SELFPAY ==
--- NOTE | ~2024-12-23 | XR_ITS ---
EXAMINATION: XR PARANASAL SINUSES 3 VIEWS HISTORY: R09.81 - Nasal congestion COMPARISON: There are no prior studies for comparison. FINDINGS: Five views of the paranasal sinuses are submitted. The bilateral frontal, maxillary, ethmoid, and sphenoid sinuses are well-aerated and clear. There is a curvilinear calcification in the superolateral aspect of the right orbit which may be related to the globe. XR/XR sinus min 3V IMPRESSION: 1. The paranasal sinuses are clear. 2. Curvilinear calcification in the superolateral aspect of the right orbit which may be related to the right globe. Clinical correlation is recommended. If further imaging is desired, CT could be performed. Electronically signed by: Jake Cormier MD 12/26/2024 08:56 AM EDT
--- OUTSIDE RECORDS SUMMARY | 2024-12-23 14:03 | XMS_ITS | Clinical Summary ---
Author Organization [address] [place] [address] [place] [phone] Phone Care Team Providers Care Rice Farmer Name Role Phone Kira Blandon MD [...] 12/10/2024 10:00 AM EDT Office Visit Walk-In [facility] [address] [place] [address] Lizeth Pollard NP Acute recurrent maxillary sinusitis (Primary Dx); Upper respiratory tract infection, unspecified type 10/11/2024 10:15 AM EST Office Visit Walk-In [address] [phone] Devon Gray PA Left lower quadrant abdominal pain (Primary Dx) from Last 3 Months Immunizations Name Administration Dates Next Due Hepatitis B (Vvhwvhv-F-Dfxky , Recombivax HB-Adult) 19yo and older 05/12/2013 [...] HISTORICAL COLONOSCOPY; COMMENT: normal ESOPHAGOGASTRODUODENOSCOPY Lauren PROCEDURE: [place] ESOPHAGOGASTRODUODENOSCOPY TRANSORAL DIAGNOSTIC; COMMENT: normal Medical History [...] Priority Date/Time Associated Diagnosis Comments POC RAPID [id number]-[id number], MOLECULAR Routine 12/10/2024 2:53 PM EDT Upper respiratory tract infection, unspecified type POC INFLUENZA A/B Routine 10/11/2024 11: 09 AM EST Left lower quadrant abdominal pain POC RAPID [id number], MOLECULAR Routine 10/11/2024 11:08 AM EST Left lower quadrant abdominal pain HEPATITIS C SCREENING Routine 11/12/2022 HIV SCREENING Routine 11/12/2022 LIPID PANEL Routine 04/27/2013 from Last 3 Months or Most Recently Relevant to Health Maintenance Results * Poc Rapid [id number], MOLECULAR (12/10/2024 2:53 PM EDT) Only the most recent of2 resultswithin the time period is included. Pathologist [facility] COVID-19/SARS- COV-2 Rapid POC Negative Negative Internal [...] Most Recently Relevant to Health Maintenance Insurance [facility] [place] [phone] Care Teams Rice Farmer Relationship Specialty Start Date End Date Kira Blandon MD [address] [place] [id number] PCP - General 08/26/23
== END 2024-12-23 09:44 | disposition home or self-care (01) ==
LOC: HO.XRAY 09:43
PROVIDERS: PCP Family Medicine; Visit Provider Nurse Practitioner Family
DX: Z76.89 Persons encountering health services in other specified circumstances (principal); Z23 Encounter for immunization; R09.81 Nasal congestion; R31.21 Asymptomatic microscopic hematuria; D64.9 Anemia, unspecified; E66.01 Morbid (severe) obesity due to excess calories; Z68.43 Body mass index [BMI] 50.0-59.9, adult; M13.80 Other specified arthritis, unspecified site; H40.9 Unspecified glaucoma; Z79.60 Long term (current) use of unspecified immunomodulators and immunosuppressants; Z91.09 Other allergy status, other than to drugs and biological substances
CPT/HCPCS: 70220; 90471; 90656; 96127; 99202

== ENCOUNTER 2024-12-23 09:43 | Outpatient (AMB) | payer OTHER, SELFPAY ==
--- NOTE | 2024-12-23 09:59 | A.OFFPC_ITS ---
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: No Allergies diphenhydramine [From Benadryl] Allergy (Unknown, Verified 12/23/24 10:28) Unknown methotrexate Adverse Reaction (Severe, Verified 12/23/24 10:28) Nausea Medication List - Last Reconciled 12/23/24 by CURTIS AndrewsP- bimatoprost 0.01% (Lumigan) 1 drp ophthalmic (eye) DAILY brimonidine 0.2% 1 drp ophthalmic-Right BID cyclobenzaprine 5 mg PO BEDTIME dicyclomine 10 mg PO TID PRN dorzolamide-timolol 22.3-6.8 mg/mL 1 drp ophthalmic (eye) BID Enbrel SureClick (etanercept) 50 mg subcut QWEEK NS pilocarpine HCl 2% 1 drp ophthalmic (eye) QID Tobacco use date assessed: 12/23/24 Dental Screening Dental Screen Date: 12/23/24 Did you have a dental visit in the last 12 months?: Yes Did you have a dental problem in the last 6 months where you did not have access to dental care?: No Was dental information given to patient?: Patient has dentist HPI HPI Comments History of Present Illness Details 39 y/o M with ADHD, GERD, Glaucoma, morb id obesity, Schizophrenia, RAFFI, Seronegative arthritis w/ chronic pain, umbilical hernia, OA bilat hips, DJD of spine s/p tonsillectomy and adnoidectomy Health Maintenance Tdap 2020 Flu admin today Specialists Rheum Pain mgmt Psych? Optho [facility] Here today to est care; some old records reviewed Previous PCP: Rebeca No records concerns primarily related to sinus congestion and allergy symptoms present for 6 months - Persistent sinus congestion with no pr evious improvement from kgcb-xih-naddpca or antibiotic treatments. - Allergic symptoms prominent during bob zarina season include severe dehydration and mucus out of eyes. + tinnitus bilat, ears feel blocked Hx of T-tubes as child; not active w/ ENT at this time. - Concerns regarding Benadryl due to gla ucoma; a request for records management clerk referral due to seasonal allergies. - No recent sinus imaging; interest in e valuating possibilities such as polyps. RA: managed by Rheum, on enbrel Glaucoma: managed by [facility] [place] [facility]d c/o: Labs 10/11/24 mild anemia, urine + blood, ^ LFT At current time denies any GI or Uro complaints. Exam: Awake alert NAD Sclera clear, conjunctiva injected bilat Nares patent, turbinates edematous, + sinus tenderness with palpation R frontal and maxillary TM intact trace air bubbles bilat MMM, pharynx WNL RRR LS CTAB I discussed the patient's symptoms related to sinus congestion and allergies, noting the ineffectiveness of previously tried OTC medications and antibiotics. Given the patient's glaucoma, the use of antihistamines is limited,. We talked about obtaining imaging for the sinuses to rule out polyps or other anomalies. A referral to [facility] in [place] for testing and treatment was planned, emphasizing expedience in handling allergy symptoms. The patient granted approval for sinus imaging and agreed to a repeat of urine analysis and complete blood count during today?s visit. Further, future follow-ups are recommended to reassess symptomatic progression and test results. Plan: Sinus Xray Refer to [facility] for allergy testing and treatment Start Azelastine nasal spray (safe for use with glaucoma) Flu shot today Repeat CBC and UA d/t 09/2024 lab findings Cont all meds and care w/ care team RTO in a few weeks for routine fu care/consider CPE if well @ that time. Total time spent caring for the patient today was 40 minutes. This includes time spent before the visit reviewing the chart, time spent during the visit, and time spent after the visit on documentation, reviewing laboratory results, diagnostic imaging, medications, performing a medically necessary evaluation, counseling on diagnoses, care coordination, ordering appropriate tests, ordering appropriate medications, review of tests performed by other providers, reporting test results with the patient, communication with other healthcare providers. [facility] Medical History (Updated 12/23/24 @ 14:22 by Nu Sanford, VERONICA-) ADHD Anxiety and depression GERD (gastroesophageal reflux disease) Glaucoma Iron deficiency anemia Migraines Morbid obesity Rheumatoid arthritis Schizophrenia Sinusitis Sleep apnea Surgical History (Updated 12/23/24 @ 10:12 by Froy Santo MA) H/O eye surgery History of tonsillectomy and adenoidectomy Family History (Updated 12/23/24 @ 10:16 by Froy Santo MA) Mother OCD (obsessive compulsive disorder) Clotting disorder Mental health disorder Father Diabetes Mental health disorder Maternal Aunt Scoliosis Cancer of lung Paternal Grandmother Mental health disorder Sister Mental health disorder Social History (Updated 12/23/24 @ 10:12 by Froy Santo MA) Household Members: Family Household Members Other:: Lives with parents Housing: House Are you a primary manager home healthcare to a significant other at home: No Do you presently have visiting nurse or other home services: No Alcohol intake: never Patient Tobacco Use Status: Never used Tobacco e-Cigarette/Vaping Use: Never Used Second Hand Smoke Exposure: No Substance Use Type: Marijuana service: No Current occupational status: employed 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 1. Little interest or pleasure in doing things: several days 2. Feeling down, depressed, or hopeless: several days 3. Trouble falling or staying asleep, or sleeping too much: several days 4. Feeling tired or having little energy: several days 5. Poor appetite or overeating: several days 6. Feeling bad about yourself - or that you are a failure or have let yourself or your family down: more than half the days 7. Trouble concentrating on things, such as reading the newspaper or watching television: more than half the days 8. Moving or speaking so slowly that other people could have noticed. Or the opposite - being so fidgety or restless that you have been moving around a lot more than usual: several days 9. Thoughts that you would be better off or of hurting yourself in some way: several days Total score: 11 Depression Screening Interpretation: Positive Depression Screening Follow-up: Existing condition and In treatment Depression Screening Done: Yes 96737 - PHQ-9 Billing: Yes Source: Developed by Drs. Jasmin Read Kurt Kroenke and colleagues, with an educational salome from [employer]. Thrive Questionnaire Date Thrive assessed: 12/23/24 I am a: Patient What is your living situation today?: I have a place to live, but I am worried about losing it in the future Within the past 12 months, did the food you bought not last and you didn't have the money to get more?: Sometimes True Within the past 12 months, did you worry whether your food would run out before you got money to buy more?: Sometimes True Do you have trouble paying for medicines?: I choose not to answer this question Do you have trouble getting transportation to medical appointments?: I choose not to answer this question Do you have trouble paying your heating and electricity bill?: I choose not to answer this question Do you have trouble taking care of your child, family member or friend?: No Do you have trouble with day-to-day activities such as bathing, preparing meals, shopping, managing finances, etc.?: No Are you currently unemployed and looking for a job?: No Are you interested in more education?: Yes Currently or been in a relationship where the following occur: I choose not to answer THRIVE Score: 3 AUDIT C Alcohol Use Questionnaire (AUDIT-C) 1. How often do you have a drink containing alcohol?: Never 3. How often do you have six or more drinks on one occasion?: Never Total Score: 0 Score Reviewed/Action Taken: Yes THIAGO-7 AMB Questionnaire THIAGO-7 Date THIAGO - 7 assessed: 12/23/24 Feeling nervous, anxious, or on edge: 1 = Several days Not being able to stop or control worryin = Several days Worrying too much about different things: 1 = Several days Trouble relaxin = Several days Being so restless that it is hard to sit still: 1 = Several days Becoming easily annoyed or irritable: 1 = Several days Feeling afraid as if something awful might happen: 1 = Several days Total THIAGO-7 score (0-4 normal; 5-9 mild; 10-14 moderate; 15-21 severe): 7 Source: Developed by Jasmin Ozuna Kurt Kroenke and colleagues, with an educational salome from [employer]. THIAGO-7 Assessment Billing THIAGO-7 Assessment Tool: THIAGO-7 Assessment 98543 Physical exam (Primary Care) Vital Signs: Last Vital Signs Temp 97.5 F 12/23/24 10:08 Pulse 86 12/23/24 10:08 Resp 13 12/23/24 10:08 BP 124/74 12/23/24 10:08 Pulse Ox 96 12/23/24 10:08 Oxygen Delivery Method Room Air 12/23/24 10:08 BMI result Body Mass Index 56.5 BMI Assessment/Plan discussion: High BMI High, discussed plan: lifestyle Tobacco/Smoking Status: Tobacco use Status Tobacco use date assessed 12/23/24 12/23/24 10:03 Patient Tobacco Use Status Never used Tobacco 12/23/24 10:12 e-Cigarette/Vaping Use Never Used 12/23/24 10:12 PHQ-9: PHQ-9 Score PHQ-9: Total score 11 12/23/24 10:49 Depression Screening Interpretation: Positive Depression Screening Follow-up: Existing condition and In treatment Thrive Assessment: Date of Thrive Assessment Date Thrive assessed 12/23/24 12/23/24 10:03 Currently or been in a relationship where the following occur: I choose not to answer Office Procedures Flu Questionnaire Does the patient have a severe egg allergy?: No Does the patient have severe life threatening allergies?: No Does the patient have a fever or illness today?: No Has the patient ever had Guillain-Bucklin Syndrome?: No Has the patient ever had any past reaction to a flu shot?: No Immunizations Fluarix Triv 3328-2178 (PF) 45 mcg (15 mcg x 3)/0.5 mL IM syringe Performing Provider: Nu Sanford [facility] Performing Location: [facility] Administered by: Jenna Garibay RN on 12/23/24 10:49 Dose Route Admin Location Dispensed Lot Number Expiration Date [facility] [employer] Mixer 0.5 mL IM Left Deltoid 0.5 mL [id number] 03/20/25 [id number] [employer] VIS Given Date VIS Provided VIS Publication Date 12/23/24 Single Vaccine 21 Eligibility Eligibility Date Funding Source Not [facility] Eligible 12/23/24 Private Coding Level of Care Code New Pt Level 4 (30346) Complex EM visit Add On G2211 Diagnoses Encounter to establish care Z76.89 Congestion of nasal sinus R09.81 Environmental allergies Z91.09 Asymptomatic microscopic hematuria R31.21 Hematuria type: asymptomatic microscopic Mild anemia D64.9 Influenza vaccination administered at current visit Z23 Morbid obesity due to excess calories E66.01 Long-term use of immunosuppressant medication Z79.60 Seronegative arthritis M13.80 Glaucoma of both eyes, unspecified glaucoma type H40.9 Laterality: bilateral Glaucoma type: unspecified Additional Codes THIAGO-7 Assessment Billing - THIAGO-7 Assessment Tool: THIAGO-7 Assessment 10949 ([id number]) PHQ-9 - 11220 - PHQ-9 Billing: Yes ([id number]) Assessment & Plan Assessment & Plan (1) Encounter to establish care: Code(s): Z76.89 - Persons encountering health services in other specified circumstances (2) Congestion of nasal sinus: Code(s): R09.81 - Nasal congestion Category: Medical (3) Environmental allergies: Code(s): Z91.09 - Other allergy status, other than to drugs and biological substances Category: Medical (4) Hematuria: Code(s): R31.9 - Hematuria, unspecified Category: Medical Qualifiers: Hematuria type: asymptomatic microscopic Qualified Code(s): R31.21 - Asymptomatic microscopic hematuria (5) Mild anemia: Code(s): D64.9 - Anemia, unspecified Category: Medical (6) Influenza vaccination administered at current visit: Code(s): Z23 - Encounter for immunization Category: Medical (7) Morbid obesity due to excess calories: Code(s): E66.01 - Morbid (severe) obesity due to excess calories Category: Medical (8) Long-term use of immunosuppressant medication: Comment: enbrel Code(s): 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.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 Orders: Orders UA CC w/rflx Micro + Cult Today D64.9 - Anemia, unspecified, R31.9 - Hematuria, unspecified Complete Blood Count no Diff Today D64.9 - Anemia, unspecified, R31.9 - Hematuria, unspecified Influenza 6084-5259 Immunization Today Z23 - Encounter for immunization Referrals Allergy & Immunology Referral Z91.09 - Other allergy status, other than to drugs and biological substances Medications: New azelastine administer into each nostril 137 mcg (0.137 mL) intranasal BID 30 mL 0RF Patient Instructions: Walk-In Care (Urgent Care): We Make it Easy Walk-in for urgent medical issues such as: ? Seasonal Allergies ? Insect Bites ? Cough ? Diarrhea ? Acute Asthma Attacks ? Back, Knee or Joint Pain ? Ear Infection ? Fever without a Rash ? Headaches ? Nausea ? [facility] [facility], Rash or Skin Irritation ? Sore Throat ? Sports Physicals ? Vomiting Most insurances are accepted. Patients do not need to be part of the [facility] to seek care at the walk-in clinic. Locations [facility] , [place] [address] ? [phone] [facility] Walk-In Care in [place] provides services to ages 18 and over. Open Thursday-Thursday: 8 a.m. to 5 p.m. and Thursday: 9 a.m. to 3 p.m.* *Hours may vary due to staffing availability. To confirm Walk-In Care hours in [place], please call [phone]. [address] [place] [address] ? [phone] [facility] Care in [place] provides services to ages 12 and over. Open Thursday-Thursday: 8 a.m. to 5 p.m. Hours may vary due to staffing availability. To confirm Walk-In Care hours in [place], please call [phone]. LABORATORY SERVICES: [facility] ? Primary Location [address] [place] [address] Thursday through Thursday 6:00 AM ? 5:00 PM Thursday 7:00 AM ? 11:00 AM* [phone] The [facility] is centrally located near the front entrance of the [facility] for easy outpatient access. Convenient parking is provided for outpatients. *Hours may vary due to staffing availability. To confirm Laboratory hours for any location, please call [phone]. Offsite Location For your convenience, we offer offsite laboratory draw stations at the following locations: [address] [facility], [place] [address] [facility] [address], [address], [place] Thursday through Thursday 7:30 AM ? 1:00 PM* [phone] *Hours may vary due to staffing availability. To confirm Laboratory hours for any location, please call [phone]. [place] ? [facility] [address] [facility], [place] Thursday through Thursday 6:00 AM ? 3:30 PM* Thursday 6:30 AM ? 3 PM* [phone] *Hours may vary due to staffing availability. To confirm Laboratory hours for any location, please call [phone]. [address] [facility] Thursday through Thursday 7:30 AM ? 4:00 PM* [phone] *Hours may vary due to staffing availability. To confirm Laboratory hours for any location, please call [phone] [place] [address] Thursday through 9:00 AM ? 4:00 PM* *Hours may vary due to staffing availability. To confirm Laboratory hours for any location, please call [phone]. Appointments are not necessary. Walk-ins are welcome. Like all the departments throughout the [facility], our Lab undergoes frequent reviews to ensure the quality and accuracy of test results, and our staff takes special pride in its status as a nationally accredited facility. Patient Portal: ONE PATIENT. ONE RECORD. BETTER CARE. [facility] has a fully integrated, cutting- edge mobile electronic health information system that has revolutionized the way we care for our patients and manage our organization. This system improves communication and coordination enabling us to provide safe, higher-quality care, and an overall positive experience for staff and patients. Our first priority, as always, is to deliver the highest quality care possible. The system is running in the background supporting that priority. This portal is for all [facility] services and practices. If you are experiencing any technical difficulties with enrolling or logging into the Patient Portal please complete the [facility] Patient Portal Technical Support Form. [facility] now offers a new secure on-line interactive tool for patients to review their health information ? ?Patient Portal. This interactive web portal will enable patients and their families to take an active role in their care by providing easy, secure access to their health information via the internet. The Patient Portal provides patients with instant access to their health information, including laboratory results, medications, allergies, demographic information, visit history, and more. In addition to managing their own care, parents and health care proxies with authorized consent will appreciate the ability to access the records of those individuals for whom they provide care. Please note: if you wish to gain access (Proxy) to another patient?s portal, you will be required to come to the Medical Records Department in person at [facility]. Both the patient giving proxy access and the proxy will need to provide photo identification and complete the appropriate authorization. The Patient Portal also allows track their appointments online. The [facility] Patient Portal also saves patients time by allowing them to submit updates to their demographic and contact information prior to their visits. Portal email notifications will also alert patients to any new activity on their portal, such as test results and new appointments. In order to initially enroll in the [facility] Patient Portal, you will need to enter some required information including the following: * your [facility] Medical Record number * your personal home email address * name * date of Please note: In order to enroll in the [facility] Patient Portal, we need to have your email address on file in your electronic medical record. ?The email address needs to be specific for one person (yourself) in order for your Portal enrollment to be successful. ?You can update your email address in person with our Registration staff when you are registering for a hospital visit. ?Otherwise, you will need to come to the Health Information Management (Medical Records) Department at [facility]. ?We are open from Thursday ? Thursday from 7:30 a.m. ? 4:30 p.m. ?You will be required to present a photo id. Once you have successfully enrolled in the Patient Portal, you will receive a one-time user id and password for the Portal, sent to your email address. ?This will allow you to log into the Patient Portal within 99 hrs and reset your own logon id and password, and define personal security questions. ?Once your permanent login and password have been set, you can log into the [facility] Patient Portal at any time via the blue button above or from the Portal Logon button on any page of the [facility] website. [facility] encourage all of our patients to enroll in Patient Portal as it presents a valuable opportunity for patients and their families to actively participate in their care and stay healthy Welcome to [facility]. ?We look forward to working with you.
[2024-12-23 10:08] VITALS: BP 124/74; PULSE 86; RESP 13; TEMP 36.4; O2SAT 96; BMI 56.5
--- OUTSIDE RECORDS SUMMARY | 2024-12-23 10:49 | XMS_ITS | Clinical Summary ---
Author Organization [address] [place] [address] [place] [phone] Phone Care Team Providers Care Controlled Atmospheric Furnace Brazer Name Role Phone Kira Blandon MD Primary Care Provider Allergies No known active allergies Medications adalimumab (Humira) 40 mg/0.8 mL syringe Inject under the skin. Active Lumigan 0.01 % ophthalmic drops INSTILL 1 DROP INTO BOTH EYES EVERY NIGHT AT BEDTIME 1 Active brimonidine (ALPHAGAN) 0.2 % ophthalmic solution 1 drop 2 times daily. 3 Active cyclobenzaprine (FLEXERIL) 5 mg tablet TAKE [...] both eyes 2 (two) times a day. 4 Active amoxicillin-cla vulanate (AUGMENTIN) 875-125 mg per tablet Take 1 tablet by mouth 2 (two) times a day for 10 days. 20 each 5 12/21/19 25 Active Problems No known active problems Encounters Date Type Department Care Team Description 12/10/2024 10:00 AM EDT Office Visit Walk-In [facility] [address] [place] [address] Lizeth Pollard NP Acute recurrent maxillary sinusitis (Primary Dx); Upper respiratory tract infection, unspecified type 10/11/2024 10:15 AM EST Office Visit Walk-In [address] [phone] Devon Gray PA Left lower quadrant abdominal pain (Primary Dx) from Last 3 Months Immunizations Name Administration Dates Next Due Hepatitis B (Vwxcwob-A-Euxup , Recombivax HB-Adult) 19yo and older 05/12/2013 Influenza Quadravalent, MDCK , 0.5ml, preservative free (Flucelvax) 6mo and older 08/07/2023 Influenza Quadrivalent, 0.5m l, preservative free (Fluarix; FluLaval; Fluzone) ages 6mo and older (Afluria) 3yo and older 10/04/2021,05/21/2019 Influenza trivalent, with pr eservative (Fluzone; Afluria) 6mo and older 11/13/2016,07/21/2014 Meningococcal Polysaccharide 01/30/2005 Td Tetanus diptheria (Tdvax) 7yo and older 05/03 Tdap Tetanus diptheria acell ular pertussis (Boostrix; Adacel) 7yo and older 05/07/2021,05/16/2008 Surgical History Surgery Date Site/Laterality Comments COLONOSCOPY 06/29/09 Lauren PROCEDURE: HISTORICAL COLONOSCOPY; COMMENT: normal ESOPHAGOGASTRODUODENOSCOPY Lauren PROCEDURE: [place] ESOPHAGOGASTRODUODENOSCOPY TRANSORAL DIAGNOSTIC; COMMENT: normal Medical History [...] Recorded Sex Assigned at Not on file Legal Sex Male 11:32 PM EST Gender Identity Not on file Sexual Orientation Not on file Obstetrics History Last Filed Vital Signs Vital Sign Reading Time Taken Comments Blood Pressure 117/88 12/10/2024 9:54 AM EDT Pulse 86 12/10/2024 9:54 AM EDT Temperature 36.6 ??C (97.9 ??F) 12/10/2024 9:54 AM ED T Respiratory Rate - - Oxygen Saturation 98% 12/10/2024 9:54 AM EDT Inhaled Oxygen Concentration - - Weight 161 kg (356 lb) 02/26/2024 8:48 AM EDT Height 177.8 cm (5' 10 ) 02/26/2024 8:48 AM EDT Body Mass Index 51.08 02/26/2024 8:48 AM EDT Plan of Treatment Health Maintenance Due Date Last Done Comments Hepatitis B Vaccines (2 of 3 - 19+ 3-dose series) 06/09/2013 05/12/2013 Cholesterol Screening (Lipid Panel) 08/24/2022 04/27/2013 Depression Screening 08/24/2022 Social Influencers of Health Screening 08/24/2022 COVID-19 Vaccine ( season) 2024 10/04/2021, 02/16/2021, 01/26/2021 Influenza Vaccine (Season Ended) 2025 08/07/2023, 10/04/2021, 05/21/2019, Additional history exists DTaP,Tdap,and Td Vaccines (4 - Td or Tdap) 05/07/2031 05/07/2021, 05/16/2008, 05/03/1997 Meningococcal ACWY Vaccine Aged Out 01/30/2005 N o longer eligible based on patient's age to complete this topic HIV Screening Completed 06/29/2024, 11/12/2022 Hepatitis C Screening Completed 06/29/2024, 023 HIB Vaccines Aged Out No longer eligi [...] on patient's age to complete this topic Meningococcal B Vacine Aged Out No lo nger eligible based on patient's age to complete [...] Name Priority Date/Time Associated Diagnosis Comments POC RAPID [id number], MOLECULAR Routine 12/10/2024 2:53 PM EDT Upper respiratory tract infection, unspecified type POC INFLUENZA A/B Routine 10/11/2024 11: 09 AM EST Left lower quadrant abdominal pain POC RAPID [id number]-[id number], MOLECULAR Routine 10/11/2024 11:08 AM EST Left lower quadrant abdominal pain HEPATITIS C SCREENING Routine 11/12/2022 HIV SCREENING Routine 11/12/2022 LIPID PANEL Routine 04/27/2013 from Last 3 Months or Most Recently Relevant to Health Maintenance Results * Poc Rapid [id number], MOLECULAR (12/10/2024 2:53 PM EDT) Only the most recent of2 resultswithin the time period is included. Pathologist [facility] [place] COVID-19/SARS- COV-2 Rapid POC Negative Negative Internal Control Pass Yes Yes Swab Nasopharyngeal structure / Unknown 12/10/2024 2:53 PM EDT Lizeth Pollard NP POINT OF CARE TEST ENTER/EDIT ORDERABLES Final Result * POC Influenza A/B manually resulted (10/11/2024 11:09 AM EST) Rapid Influenza A AGN POC Negative Negative Rapid Influenza B AGN POC Negative Negative Internal Control Pass Yes Yes Swab 10/11/2024 11:0 9 AM EST Devon Gray PA POINT OF CARE TEST ENTER/E DIT ORDERABLES Final Result * HIV Screening (11/12/2022) HIV Screening abstracted Historical Provider HEALTH MAINTENANCE Final Result * Hm Hepatitis C Screening (11/12/2022) HM Hepatitis C Screening abstracted Historical Provider HEALTH MAINTENANCE Final Result * (ABNORMAL) Lipid panel (04/27/2013) LDL/HDL Ratio 4 0 - 4 Triglycerides 177(A) 0 - 150 mg/dL Cholesterol 171 0 - 200 mg/dL HDL 39(A) >=40 mg/dL LDL Cholesterol 97 0 - 100 mg/dL Blood Venous blood specimen / Unknown Historical Provider LAB BLOOD ORDERABLES Dona l Result from Last 3 Months or Most Recently Relevant to Health Maintenance Insurance [facility] Care Teams Controlled Atmospheric Furnace Brazer Relationship Specialty Start Date End Date Kira Balndon MD [address] [place] [phone] PCP - General 08/26/23
== END 2024-12-23 10:48 | disposition home or self-care (01) ==
PROVIDERS: PCP Family Medicine; Visit Provider Nurse Practitioner Family
DX: R09.81 Nasal congestion (principal); E66.01 Morbid (severe) obesity due to excess calories; Z68.43 Body mass index [BMI] 50.0-59.9, adult; R31.21 Asymptomatic microscopic hematuria; Z76.89 Persons encountering health services in other specified circumstances; Z91.09 Other allergy status, other than to drugs and biological substances; D64.9 Anemia, unspecified; Z23 Encounter for immunization; Z79.60 Long term (current) use of unspecified immunomodulators and immunosuppressants; M13.80 Other specified arthritis, unspecified site; H40.9 Unspecified glaucoma

== ENCOUNTER 2024-12-23 11:01 | Outpatient (REF) | payer OTHER, SELFPAY ==
--- OUTSIDE RECORDS SUMMARY | 2024-12-23 12:47 | XMS_ITS | Clinical Summary ---
Author Organization [address] [place] [address] [place] [phone] Phone Care Team Providers Care Subway Conductor Name Role Phone Kira Blandon MD Primary [...] 12/10/2024 10:00 AM EDT Office Visit Walk-In [facility] [address] [place] [address] Lizeth Pollard NP Acute recurrent maxillary sinusitis (Primary Dx); Upper respiratory tract infection, unspecified type 10/11/2024 10:15 AM EST Office Visit Walk-In [address] [phone] Devon Gray PA Left lower quadrant abdominal pain (Primary Dx) from Last 3 Months Immunizations Name Administration Dates Next Due Hepatitis B (Eseuqsg-D-Uroka , Recombivax HB-Adult) 19yo and older 05/12/2013 [...] HISTORICAL COLONOSCOPY; COMMENT: normal ESOPHAGOGASTRODUODENOSCOPY Lauren PROCEDURE: [place] ESOPHAGOGASTRODUODENOSCOPY TRANSORAL DIAGNOSTIC; COMMENT: normal Medical History [...] Priority Date/Time Associated Diagnosis Comments POC RAPID [id number], MOLECULAR Routine 12/10/2024 2:53 PM EDT Upper respiratory tract infection, unspecified type POC INFLUENZA A/B Routine 10/11/2024 11: 09 AM EST Left lower quadrant abdominal pain POC RAPID APJD-[id number]-[id number], MOLECULAR Routine 10/11/2024 11:08 AM EST Left lower quadrant abdominal pain HEPATITIS C SCREENING Routine 11/12/2022 HIV SCREENING Routine 11/12/2022 LIPID PANEL Routine 04/27/2013 from Last 3 Months or Most Recently Relevant to Health Maintenance Results * Poc Rapid [id number], MOLECULAR (12/10/2024 2:53 PM EDT) Only the most recent of2 resultswithin the time period is included. Pathologist [facility] COVID-19/SARS- COV-2 Rapid POC Negative Negative Internal [...] Most Recently Relevant to Health Maintenance Insurance [facility] Care Teams Subway Conductor Relationship Specialty Start Date End Date Kira Blandon MD [address] [place] [phone] PCP - General 08/26/23
[2024-12-23 14:01] LABS: Appearance Urine Clear; Color Urine Yellow; Glucose Urine UA Negative (Negative); Leukocyte Esterase Urine Negative (Negative); Nitrite Urine Negative (Negative); Specific Gravity - Urine 1.025 (1.005-1.025); UMIC TRIGGER UACC YES; Urine Blood Negative (Negative); Urine Ketones Negative (Negative); Urine Protein 30 (1+) mg/dL (Neg-Trace)
[2024-12-23 14:04] LABS: MANUAL DIFF FLAG NO
[2024-12-23 14:13] LABS: Basophils Percent Auto 0.2 % (0-2); Hematocrit 43.2 % (42.0-52.0); Hemoglobin 14.7 g/dl (14.0-18.0); Imm Gran Abs Auto 0.02 X10*3/uL (0.00-0.03); Imm Gran Pct Auto 0.3 % (0.0-0.4); Lymphocytes Absolute Auto 2.2 X10*3/uL (1.2-4.9); Mean Corpuscular Hemoglobin 27.4 pg (27.0-33.0); Mean Corpuscular Volume 80.6 fL (80.0-98.0); Monocytes Absolute Auto 0.5 X10*3/uL (0.1-1.2); Monocytes Percent Auto 9.1 % (2-11); Neutrophils Percent Auto 51.4 % (45-73); Platelet Count 262 X10*3/uL (160-400); Red Blood Count 5.36 X10*6/uL (4.60-5.80); Red Cell Distribution Width 13.8 % (11.0-16.0); White Blood Count 5.7 X10*3/uL (4.8-10.8)
[2024-12-23 14:17] LABS: Bacteria Urine None Seen (None Seen); Hyaline Casts Urine 0-2 /LPF (0-2); Squamous Epithelial Cell Urine 0-2 /HPF (0-2); WBC Urine 0-5 /HPF (0-5)
[2024-12-23 14:18] LABS: RBC Urine 0-2 /HPF (0-2)
[2024-12-23 14:36] LABS: Alanine Aminotransferase 43 U/L (0-40); Albumin Level 4.5 g/dL (3.5-5.0); Alkaline Phosphatase 66 U/L (39-117); Anion Gap 11 (12-20); Aspartate Amino Transferase 36 U/L (5-37); Blood Urea Nitrogen 11 mg/dL (9-16); C Reactive Protein 0.73 mg/dL (< or = 0.50); Calcium 9.6 mg/dL (8.4-10.2); Carbon Dioxide 25 mmol/L (22-29); Chloride 109 mmol/L (96-108); Estimated Glomerular Filt Rate > 60; Glucose Random 110 mg/dL (60-115); Potassium 4.2 mmol/L (3.3-5.1); Sodium 141 mmol/L (135-145); Total Protein 7.4 g/dL (6.5-8.0)
[2024-12-23 14:52] LABS: Erythrocyte Sedimentation Rate 14 MM/HR (0-15)
[2024-12-24 07:38] LABS: HBc Num1 0.11 S/CO (0.00-0.79); HBsAGNum1 0.31 S/CO (0.00-0.99); Hepatitis A Antibody IgM 0.12 Index (0-0.79); Hepatitis B Core Antibody Nonreactive (Nonreactive); Hepatitis B Surface Antigen Negative (Negative); ~HepC Num1 0.27 S/CO (0.00-0.79); ~Hepatitis A Antibody IgM Nonreactive (Nonreactive); ~Hepatitis B Surface Antibody NONREACTIVE (Nonreactive); ~Hepatitis C Antibody Nonreactive (Nonreactive)
[2024-12-26 12:48] LABS: TS Negative Control Passed; TS Panel A 0; TS Panel B 1; TS Positive Control Passed; TSpotTB Negative (Negative)
== END 2024-12-23 11:02 | disposition home or self-care (01) ==
LOC: HO.WFDLDS 11:01
PROVIDERS: Student in an Organized Health Care Education/Training Program; Visit Provider Nurse Practitioner Family
DX: M13.80 Other specified arthritis, unspecified site (principal); Z11.7 Encounter for testing for latent tuberculosis infection; Z11.59 Encounter for screening for other viral diseases
CPT/HCPCS: 36415; 80053; 81001; 81003; 85025; 85652; 86140; 86481; 86704; 86706; 86709; 86803; 87340

== ENCOUNTER → 2024-12-23 12:08 | Outpatient (BNV) | payer OTHER, SELFPAY | PROVIDERS: PCP Family Medicine; Visit Provider Radiology Diagnostic Radiology | DX: R09.81 Nasal congestion (principal) | CPT/HCPCS: 70220 ==

== ENCOUNTER 2025-01-19 13:50 | Outpatient (AMB) | payer OTHER, SELFPAY ==
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
[2025-01-19 14:08] VITALS: BP 131/69; PULSE 75; RESP 16; TEMP 36.5; O2SAT 99; BMI 56.2
--- OUTSIDE RECORDS SUMMARY | 2025-01-19 16:05 | XMS_ITS | Clinical Summary ---
Author Organization [address] [place] [address] [place] [phone] Phone Care Team Providers Care Brake Repair Supervisor Name Role Phone Kira Blandon MD Primary [...] 12/10/2024 10:00 AM EDT Office Visit Walk-In Clinic - [address] [phone] Lizeth Pollard NP Acute recurrent maxillary sinusitis (Primary Dx); Upper respiratory tract infection, unspecified type from Last 3 Months Immunizations Name Administration Dates Next Due Hepatitis B (Ztjuahy-D-Bkjtk , Recombivax HB-Adult) 19yo and older 05/12/2013 [...] HISTORICAL COLONOSCOPY; COMMENT: normal ESOPHAGOGASTRODUODENOSCOPY Triny PROCEDURE: [place] ESOPHAGOGASTRODUODENOSCOPY TRANSORAL DIAGNOSTIC; COMMENT: normal Medical History [...] of Health Screening 08/24/2022 COVID-19 Vaccine ( - season) 2024 10/04/2021, 02/16/2021, 01/26/2021 Influenza [...] age to complete this topic Meningococcal B Vaccine Aged Out No l onger eligible based on patient's age to complete [...] Priority Date/Time Associated Diagnosis Comments POC RAPID [id number], MOLECULAR Routine 12/10/2024 2:53 PM EDT Upper respiratory tract infection, unspecified type HEPATITIS C SCREENING Routine 11/12/2022 HIV SCREENING Routine 11/12/2022 LIPID PANEL Routine 04/27/2013 from Last 3 Months or Most Recently Relevant to Health Maintenance Results * Poc Rapid [id number]-[id number]-HCV, MOLECULAR (12/10/2024 2:53 PM EDT) [facility] COVID-19/SARS- COV-2 Rapid POC Negative Negative Internal Control Pass Yes Yes Swab Nasopharyngeal structure / Unknown 12/10/2024 2:53 PM EDT Lizeth Pollard NP POINT OF CARE TEST ENTER/EDIT ORDERABLES Final Result * HIV Screening (11/12/2022) Pathologist [facility] HIV Screening abstracted [facility] Provider HEALTH MAINTENANCE Final Result * Hepatitis C Screening (11/12/2022) Pathologist [facility] Hepatitis C Screening abstracted [facility] Provider HEALTH MAINTENANCE Final Result * (ABNORMAL) Lipid panel (04/27/2013) [facility] LDL/HDL Ratio 4 0 - 4 Triglycerides 177(A) 0 - 150 mg/dL Cholesterol 171 0 - 200 mg/dL HDL 39(A) >=40 mg/dL LDL Cholesterol 97 0 - 100 mg/dL Blood Venous blood specimen / Unknown Result [facility] Historical Provider LAB BLOOD ORDERABLES Dona l Result from Last 3 Months or Most Recently Relevant to Health Maintenance Insurance [facility] PLAN Care Teams Brake Repair Supervisor Relationship Specialty Start Date End Date Kira Blandon MD [address] [place] [id number] PCP - General 08/26/23
== END 2025-01-19 15:29 | disposition home or self-care (01) ==
LOC: HO.HMCFM 13:51
PROVIDERS: PCP Nurse Practitioner Family; Visit Provider Family Medicine
DX: F41.8 Other specified anxiety disorders (principal); V89.2XXA Person injured in unspecified motor-vehicle accident, traffic, initial encounter

== ENCOUNTER → 2025-01-19 13:50 | Outpatient (BNVA) | payer OTHER, SELFPAY | PROVIDERS: PCP Family Medicine; Visit Provider Family Medicine | DX: Z09 Encounter for follow-up examination after completed treatment for conditions other than malignant neoplasm (principal); F41.8 Other specified anxiety disorders | CPT/HCPCS: 96127; 99212 ==

== ENCOUNTER 2025-01-27 15:44 | Outpatient (REF) | payer OTHER, SELFPAY ==
--- NOTE | ~2025-01-27 | CT_ITS ---
CLINICAL HISTORY: R09.81 - Nasal congestion --- Additional Notes or Special Instructions: EXAMINATION : XR PARANASAL SINUSES [address] sinuses without contrast Comparison: None Findings: Small mucous retention cyst within 1 of the left ethmoid sinuses. Mucosal thickening within 1 of the right ethmoid sinuses. Remaining paranasal sinuses are clear. There are no air-fluid levels. The bilateral ostiomeatal units are patent. There is hypertrophy of the left inferior turbinate. The nasal airway is patent. There is a curvilinear metallic implant within the right orbit immediately adjacent to the lateral aspect of the globe. Orbital contents are otherwise unremarkable. No acute fractures. IMPRESSION: 1. No evidence of acute sinusitis. This document has been electronically signed by: Alice Swenson MD on 01/30/2025 14:01:46
--- OUTSIDE RECORDS SUMMARY | 2025-01-27 15:46 | XMS_ITS | Clinical Summary ---
Author Organization [address] [place] [address] [place] [phone] Phone Care Team Providers Care Rocket Engine Tester Name Role Phone Kira Blandon MD Primary [...] 2 (two) times a day. 4 Active Active Problems No known active problems Encounters Date Type Department Care Team Description 12/10/2024 10:00 AM EDT Office Visit Walk-In Clinic - [address] [phone] Lizeth Pollard NP Acute recurrent maxillary sinusitis (Primary Dx); Upper respiratory tract infection, unspecified type from Last 3 Months Immunizations Name Administration Dates Next Due Hepatitis B (Uppehtx-Y-Rfaqx , Recombivax HB-Adult) 19yo and older 05/12/2013 [...] HISTORICAL COLONOSCOPY; COMMENT: normal ESOPHAGOGASTRODUODENOSCOPY Triny PROCEDURE: CO ESOPHAGOGASTRODUODENOSCOPY TRANSORAL DIAGNOSTIC; COMMENT: normal Medical History [...] Priority Date/Time Associated Diagnosis Comments POC RAPID [id number], MOLECULAR Routine 12/10/2024 2:53 PM EDT Upper respiratory tract infection, unspecified type HM HEPATITIS C SCREENING Routine 11/12/2022 HIV SCREENING Routine 11/12/2022 LIPID PANEL Routine 04/27/2013 from Last 3 Months or Most Recently Relevant to Health Maintenance Results * Poc Rapid [id number], MOLECULAR (12/10/2024 2:53 PM EDT) Pathologist [facility] COVID-19/SARS- COV-2 Rapid POC Negative Negative Internal Control Pass Yes Yes Swab Nasopharyngeal structure / Unknown 12/10/2024 2:53 PM EDT Lizeth Pollard NP POINT OF CARE TEST ENTER/EDIT ORDERABLES Final Result * HIV Screening (11/12/2022) Pathologist [facility] HIV Screening abstracted [facility] Provider HEALTH MAINTENANCE Final Result * Hepatitis C Screening (11/12/2022) Pathologist [facility] Hepatitis C Screening abstracted [facility] Provider HEALTH MAINTENANCE Final Result * (ABNORMAL) Lipid panel (04/27/2013) [facility] LDL/HDL Ratio 4 0 - 4 Triglycerides 177(A) 0 - 150 mg/dL Cholesterol 171 0 - 200 mg/dL HDL 39(A) >=40 mg/dL LDL Cholesterol 97 0 - 100 mg/dL Blood Venous blood specimen / Unknown Historical Provider LAB BLOOD ORDERABLES Dona l Result from Last 3 Months or Most Recently Relevant to Health Maintenance Insurance [facility] PL[facility] Care Teams Rocket Engine Tester Relationship Specialty Start Date End Date Kira Blandon MD [address] [place] [address] [phone] PCP - General 08/26/23
== END 2025-01-27 15:45 | disposition home or self-care (01) ==
LOC: HO.CT 15:44
PROVIDERS: PCP Family Medicine; Visit Provider Nurse Practitioner Family
DX: R09.81 Nasal congestion (principal); R51.9 Headache, unspecified; G89.29 Other chronic pain
CPT/HCPCS: 70486

== ENCOUNTER → 2025-01-27 15:45 | Outpatient (BNV) | payer OTHER, SELFPAY | PROVIDERS: PCP Family Medicine; Visit Provider Radiology Diagnostic Radiology | DX: R09.81 Nasal congestion (principal) | CPT/HCPCS: 70486 ==

== ENCOUNTER 2025-02-01 15:27 | Outpatient (AMB) | payer OTHER, SELFPAY ==
[2025-02-01 15:30] VITALS: BP 130/76; PULSE 98; O2SAT 98; BMI 55.4
--- NOTE | 2025-02-01 15:30 | A.OFFVIS_ITS ---
Vital Signs 02/01/25 15:30 Height 5 ft 10 in Weight 385 lb 12.943 oz BMI 55.4 BP 130/76 Blood Pressure Location Rt brachial Position Sitting Pulse 98 Pulse Source Pulse Oximeter Pulse Oximetry (%) 98 Oxygen Delivery Method Room Air Intake Visit Reasons: PsA Intake Note: Patient presents for follow up on PSA today.? Allergies diphenhydramine [From Benadryl] Allergy (Unknown, Verified 02/01/25 15:37) Unknown methotrexate Adverse Reaction (Severe, Verified 02/01/25 15:37) Nausea Medication List - Last Reconciled 02/01/25 by Bailey Nicolas MD azelastine 137 mcg (0.137 mL) intranasal BID bimatoprost 0.01% (Lumigan) 1 drp ophthalmic (eye) DAILY brimonidine 0.2% 1 drp ophthalmic-Right BID cyclobenzaprine 5 mg PO BEDTIME dorzolamide-timolol 22.3-6.8 mg/mL 1 drp ophthalmic (eye) BID Enbrel SureClick (etanercept) 50 mg subcut QWEEK NS escitalopram oxalate (Lexapro) 20 mg PO DAILY 90 days hydroxyzine HCl 50 mg PO BID PRN 90 days pilocarpine HCl 2% 1 drp ophthalmic (eye) QID HPI Comments Details: Patient is a 40-year-old male with GERD, RAFFI, schizophrenia anxiety and depressions, polyarticular osteoarthritis, and seronegative arthritis here today for follow up Interval History: Patient last seen 08/02/[address] Rodriguez. At that time he was following up for his seronegative arthritis. He was on Enbrel 50 mg daily however despite that he reported being more ?achy recently. There was no evidence of active synovitis on examination at that time and no changes were made to his medication. A lot of his aches were contributed to his weight and lack of activity Rheumatologic History: seroneg RA vs PsA Multiple tender and swollen joints and high inflammatory markers with excellent response to prednisone MTX started 01/11 effective but caused nausea DC 04/12 Enbrel 04/12 effective Initial history: This is a 37-year-old morbidly obese male with a past medical history of ADHD, GERD, RAFFI, schizophrenia presents for evaluation of chronic headaches and bilateral hand stiffness. Patient has had headaches for many years. He was evaluated by Neurology before and no diagnosis was reached. Patient states he has had recurrent headaches with bilateral temporal swelling for years. Over the last 2 weeks patient has noticed stiffness of both hands and reduced finger flexion bilaterally. This is associated with morning stiffness lasting 30 minutes. Patient works at [employer] and his job entails moving heavy objects. There is no history of psoriasis. Patient states he has injured his left ankle multiple times and had multiple ankle sprains and Achilles tendinitis. He also has left knee pain usually worse when he is on his feet. He takes Advil 600 mg 3 times a day on the days that his left leg bothers him. Denies history of psoriasis. No known family history of autoimmune rheumatic disease. Current Rheumatology Medication(s): Enbrel 50mg SC weekly PFSH Medical History (Updated 01/19/25 @ 15:13 by Tunde Guevara) Anxiety and depression Rheumatoid arthritis Sinusitis Glaucoma Schizophrenia ADHD Morbid obesity GERD (gastroesophageal reflux disease) Iron deficiency anemia Sleep apnea Migraines Surgical History (Updated 12/23/24 @ 10:12 by Froy Santo MA) H/O eye surgery History of tonsillectomy and adenoidectomy Family History (Updated 12/23/24 @ 10:16 by Froy Santo MA) Mother OCD (obsessive compulsive disorder) Clotting disorder Mental health disorder Father Diabetes Mental health disorder Maternal Aunt Scoliosis Cancer of lung Paternal Grandmother Mental health disorder Sister Mental health disorder Social History (Updated 12/23/24 @ 10:12 by Froy Santo MA) Household Members: Family Household Members Other:: Lives with parents Both parents involved: Yes Caregiver staying overnight: No Housing: House Are you a primary plant care worker to a significant other at home: No Do you presently have visiting nurse or other home services: No 75 years or older and lives alone: No Alcohol intake: never Patient Tobacco Use Status: Never used Tobacco e-Cigarette/Vaping Use: Never Used Second Hand Smoke Exposure: No Substance Use Type: Marijuana service: No Current occupational status: employed 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 [employer] Cognitive needs: No Hearing needs: No Vision needs: No Review of Systems Const Details: Review of Systems Constitutional: Denies fever, chills, weight loss ENT: Denies vision changes, eye pain or eye redness, dental caries, dry mouth GI: Denies nausea, vomiting, diarrhea, abdominal pain, change in BM Pulm: Denies SOB, BRENNAN, hemoptysis, wheezing Cards: Denies chest pain, palpitations Skin: Denies Raynaud's, rash, nail changes, photosensitivity, PAINTING AND COATING WORKER: Denies headaches, weakness, paresthesias, recurrent falls MSK: as per HPI All other systems reviewed and are unremarkable except noted above Physical Exam Vital Signs: Last Vital Signs Pulse 98 02/01/25 15:30 BP 130/76 02/01/25 15:30 Pulse Ox 98 02/01/25 15:30 Oxygen Delivery Method Room Air 02/01/25 15:30 BMI result Body Mass Index 55.4 Vital signs reviewed Physical Examination CONSTITUITIONAL Patient alert and cooperative. Well appearing and in no apparent painful distress Morbidly obese HEENT Conjunctiva and sclera clear. ?Pupils equal round and reactive to light. ?No lymphadenopathy. ? CHEST/RESPIRATORY SYSTEM Normal respiratory effort and able to speak in complete sentences. ?Clear to auscultation bilaterally. ?No crackles, rales, rhonchi, wheezes heard. CARDIAC SYSTEM Regular rate and rhythm. ?S1 and S2 heard no murmurs. ?Radial pulses intact bilaterally MSK Hands: ?Able to make a fist. No synovitis noted to the MCPs, PIPs or DIPs. ?No tenderness to palpation of these joints. No deformities noted. ? Wrists: ?Full range of motion at the wrists without pain. ?No tenderness to palpation or synovitis noted to the wrists. Elbows: Full range of motion without pain. No tenderness, weakness, swelling, increased warmth or erythema. Shoulders: Full range of active range of motion without pain. No tenderness, weakness, swelling, increased warmth or erythema. Knees: ?Full range of motion. ?No tenderness, swelling, increased warmth or erythema.?No effusion or crepitations Ankles: Full range of motion. ?No tenderness, swelling, increased warmth or erythema.? Feet: ?Negative squeeze test. ?No tenderness to palpation or swelling of the MTPs. Tender points:?No tenderness to palpation of the bilateral trapezius, supraspinatus, greater trochanters, anterior costochondral junctions, bilateral gluteal areas, bilateral suboccipital muscle insertions SKIN Skin intact without rashes. Results Reviewed Results Reviewed: Laboratory Tests 07/28/24 12/23/24 06:13 11:10 WBC 5.7 RBC 5.36 Hgb 14.7 Hct 43.2 Plt Count 262 ESR 14 Sodium 141 Potassium 4.2 Chloride 109 H Carbon Dioxide 25 BUN 11 Creatinine 0.69 AST 36 ALT 43 H C-Reactive Protein 0.61 H 0.73 H Immunology labs 10/28/22 08:29 Cycl Citrul Peptide IgG <16 Infectious serologies 12/23/24 11:10 Hepatitis A IgM Ab Nonreactive Hep Bs Antigen Negative Hep Bs Antibody NONREACTIVE Hep B Core Total Ab Nonreactive Hepatitis C Ab (EIA) Nonreactive TB Test (T-Spot) Com Negative XR Left Hip 11/2023 FINDINGS: Limited visualization due to bowel gas and body habitus. Alignment preserved. Moderate degenerative changes in the left hip with joint space narrowing and hypertrophic change. Small dense rounded focus overlying the left inferior pubic ramus laterally may represent a bony lesion such as a bone island versus soft tissue calcification. IMPRESSION: 1. Moderate degenerative changes in the left hip. 2. Small dense rounded focus overlying the left inferior pubic ramus laterally may represent a bony lesion such as a bone island versus soft tissue calcification. 3. Limited visualization due to body habitus. CT scan recommended for further evaluation if there is concern for fracture or other underlying pathology. Assessment & Plan Assessment & Plan (1) Seronegative arthritis: Comment: seroneg RA vs PsA Multiple tender and swollen joints and high inflammatory markers with excellent response to prednisone MTX started 01/11 effective but caused nausea DC 04/12 Enbrel 04/12 effective Code(s): M13.80 - Other specified arthritis, unspecified site Category: Medical Plan: #Seronegative arthritis Patient is a 40-year-old male with seronegative arthritis here today for follow up. Seronegative RA versus psoriatic arthritis. Currently in remission on etanercept monotherapy Plan - Enbrel 50mg SC weekly - RTC 4 months - Labs before visit: CBC, CMP, ESR, CRP (2) Polyarticular osteoarthritis: Code(s): M15.9 - Polyosteoarthritis, unspecified Plan: #Polyarticular OA Patient is a 40-year-old male with polyarticular osteoarthritis. Current complaints are likely related to his degenerative joint disease. Had discussion with the patient that weight loss would be very beneficial in helping offload his joints. He has a fear of weight loss surgery and I informed him that there are other options apart from weight loss surgery. I think he should consider going to a weight management clinic in the future. Otherwise no further changes to his current regimen (3) Encounter for monitoring of etanercept therapy: Code(s): Z51.81 - Encounter for therapeutic drug level monitoring; Z79.620 - longterm (current) use of immunosuppressive biologic Plan: #Long-term Use of TNF Inhibitors: Etanercept Discussed with the patient the benefits and risks of TNF inhibitors for the management of the rheumatic condition Benefits include reduce pain, maintenance of remission and reduction of flares as well as ?progression of the disease Risks include injection sites/infusion reactions, serious infections (such as bacterial infections, opportunistic infections), malignancy, delaminating syndromes, autoimmune phenomena, CHF exacerbations, palmar plantar psoriasis and cytopenias Recommended rotating injection sites, and holding medication during and for up to 1 week after resolution of a febrile illness or open skin wound Plan I spent 30 minutes reviewing the record and labs, taking a history, examining the patient, discussing the treatment plan, ordering diagnostic work up and documenting in the medical record Orders: Orders Complete Blood Count Auto Diff 4 Months M13.80 - Other specified arthritis, unspecified site Comprehensive Met. Panel 4 Months M13.80 - Other specified arthritis, unspecified site C Reactive Protein 4 Months M13.80 - Other specified arthritis, unspecified site Erythrocyte Sedimentation Rate 4 Months M13.80 - Other specified arthritis, unspecified site Coding Level of Care Code Est Pt Level 4 (19585) Complex EM visit Add On G2211 Diagnoses Seronegative arthritis M13.80 Polyarticular osteoarthritis M15.9 Encounter for monitoring of etanercept therapy Z51.81; Z79.620
--- OUTSIDE RECORDS SUMMARY | 2025-02-01 15:30 | XMS_ITS | Clinical Summary ---
Author Organization [address] [place] [address] [place] [phone] Phone Care Team Providers Care Certified Registered Nurse Practitioner Name Role Phone Kira Blandon MD Primary [...] AM EDT Office Visit Walk-In Clinic - [address] [phone] Lizeth Pollard NP Acute recurrent maxillary sinusitis (Primary Dx); Upper respiratory tract infection, unspecified type from Last 3 Months Immunizations Name Administration Dates Next Due Hepatitis B (Hubadlv-V-Nhzbt , Recombivax HB-Adult) 19yo and older 05/12/2013 [...] HISTORICAL COLONOSCOPY; COMMENT: normal ESOPHAGOGASTRODUODENOSCOPY Triny PROCEDURE: DC ESOPHAGOGASTRODUODENOSCOPY TRANSORAL DIAGNOSTIC; COMMENT: normal Medical History [...] Priority Date/Time Associated Diagnosis Comments POC RAPID [id number], MOLECULAR Routine 12/10/2024 2:53 PM EDT Upper respiratory tract infection, unspecified type HM HEPATITIS C SCREENING Routine 11/12/2022 HIV SCREENING Routine 11/12/2022 LIPID PANEL Routine 04/27/2013 from Last 3 Months or Most Recently Relevant to Health Maintenance Results * Poc Rapid [id number], MOLECULAR (12/10/2024 2:53 PM EDT) Pathologist [facility] COVID-19/SARS- COV-2 Rapid POC Negative Negative Internal Control Pass Yes Yes Swab Nasopharyngeal structure / Unknown 12/10/2024 2:53 PM EDT Lizeth Pollard NP POINT OF CARE TEST ENTER/EDIT ORDERABLES Final Result * HIV Screening (11/12/2022) Pathologist [facility] HIV Screening abstracted [facility] Provider HEALTH MAINTENANCE Final Result * Hepatitis C Screening (11/12/2022) Pathologist [facility] Hepatitis C Screening abstracted [facility] Provider HEALTH MAINTENANCE Final Result * (ABNORMAL) Lipid panel (04/27/2013) [facility] LDL/HDL Ratio 4 0 - 4 Triglycerides 177(A) 0 - 150 mg/dL Cholesterol 171 0 - 200 mg/dL HDL 39(A) >=40 mg/dL LDL Cholesterol 97 0 - 100 mg/dL Blood Venous blood specimen / Unknown Historical Provider LAB BLOOD ORDERABLES Dona l Result from Last 3 Months or Most Recently Relevant to Health Maintenance Insurance [facility] PLAN Care Teams Certified Registered Nurse Practitioner Relationship Specialty Start Date End Date Kira Blandon MD [address] [place] [address] [phone] PCP - General 08/26/23
== END 2025-02-01 16:14 | disposition home or self-care (01) ==
PROVIDERS: PCP Family Medicine; Visit Provider Student in an Organized Health Care Education/Training Program
DX: M13.80 Other specified arthritis, unspecified site (principal); M15.9 Polyosteoarthritis, unspecified; Z51.81 Encounter for therapeutic drug level monitoring; Z79.620 Long term (current) use of immunosuppressive biologic
CPT/HCPCS: 99214; G2211

== ENCOUNTER → 2025-02-01 15:27 | Outpatient (BNVA) | payer OTHER, SELFPAY | PROVIDERS: PCP Family Medicine; Visit Provider Student in an Organized Health Care Education/Training Program | DX: M13.80 Other specified arthritis, unspecified site (principal); Z51.81 Encounter for therapeutic drug level monitoring; Z79.620 Long term (current) use of immunosuppressive biologic | CPT/HCPCS: 99212 ==

== ENCOUNTER 2025-02-22 13:31 | Outpatient (AMB) | payer OTHER, SELFPAY ==
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
[2025-02-22 13:44] VITALS: BP 148/80; PULSE 95; RESP 14; TEMP 36.4; O2SAT 94; BMI 54.5
--- OUTSIDE RECORDS SUMMARY | 2025-02-22 13:45 | XMS_ITS | Clinical Summary ---
Author Organization [address] [place] [address] [place] [phone] Phone Care Team Providers Care Regulatory Affairs Specialist Name Role Phone Kira Blandon MD Primary [...] AM EDT Office Visit Walk-In Clinic - [address] [phone] Lizeth Pollard NP Acute recurrent maxillary sinusitis (Primary Dx); Upper respiratory tract infection, unspecified type from Last 3 Months Immunizations Name Administration Dates Next Due Hepatitis B (Hyrmuda-Q-Elqyw , Recombivax HB-Adult) 19yo and older 05/12/2013 [...] HISTORICAL COLONOSCOPY; COMMENT: normal ESOPHAGOGASTRODUODENOSCOPY Triny PROCEDURE: [place] ESOPHAGOGASTRODUODENOSCOPY TRANSORAL DIAGNOSTIC; COMMENT: normal [...] Priority Date/Time Associated Diagnosis Comments POC RAPID [id number], MOLECULAR Routine 12/10/2024 2:53 PM EDT Upper respiratory tract infection, unspecified type HM HEPATITIS C SCREENING Routine 11/12/2022 HIV SCREENING Routine 11/12/2022 LIPID PANEL Routine 04/27/2013 from Last 3 Months or Most Recently Relevant to Health Maintenance Results * Poc Rapid [id number], MOLECULAR (12/10/2024 2:53 PM EDT) Pathologist [facility] COVID-19/SARS- COV-2 Rapid POC Negative Negative Internal Control Pass Yes Yes Swab Nasopharyngeal structure / Unknown 12/10/2024 2:53 PM EDT Lizeth Pollard NP POINT OF CARE TEST ENTER/EDIT ORDERABLES Final Result * HIV Screening (11/12/2022) Pathologist [facility] HIV Screening abstracted [facility] Provider HEALTH MAINTENANCE Final Result * Hepatitis C Screening (11/12/2022) Pathologist [facility] Hepatitis C Screening abstracted [facility] Provider HEALTH MAINTENANCE Final Result * (ABNORMAL) Lipid panel (04/27/2013) [facility] LDL/HDL Ratio 4 0 - 4 Triglycerides 177(A) 0 - 150 mg/dL Cholesterol 171 0 - 200 mg/dL HDL 39(A) >=40 mg/dL LDL Cholesterol 97 0 - 100 mg/dL Blood Venous blood specimen / Unknown Historical Provider LAB BLOOD ORDERABLES Dona l Result from Last 3 Months or Most Recently Relevant to Health Maintenance Insurance [facility] Care Teams Regulatory Affairs Specialist Relationship Specialty Start Date End Date Kira Blandon MD [address] [place] [address] [phone] PCP - General 08/26/23
== END 2025-02-22 14:17 | disposition home or self-care (01) ==
LOC: HO.HMCFM 13:33
PROVIDERS: PCP Nurse Practitioner Family; Visit Provider Nurse Practitioner Family
DX: F41.1 Generalized anxiety disorder (principal); F33.1 Major depressive disorder, recurrent, moderate; R09.81 Nasal congestion; N50.89 Other specified disorders of the male genital organs

== ENCOUNTER → 2025-02-22 13:31 | Outpatient (BNVA) | payer OTHER, SELFPAY | PROVIDERS: PCP Nurse Practitioner Family; Visit Provider Nurse Practitioner Family | DX: K21.9 Gastro-esophageal reflux disease without esophagitis (principal); F90.9 Attention-deficit hyperactivity disorder, unspecified type; E66.01 Morbid (severe) obesity due to excess calories; F20.9 Schizophrenia, unspecified; G47.33 Obstructive sleep apnea (adult) (pediatric); M16.0 Bilateral primary osteoarthritis of hip; F41.1 Generalized anxiety disorder; F33.1 Major depressive disorder, recurrent, moderate; R09.81 Nasal congestion; N50.89 Other specified disorders of the male genital organs; Z68.43 Body mass index [BMI] 50.0-59.9, adult; Z79.899 Other long term (current) drug therapy | CPT/HCPCS: 99212 ==

== ENCOUNTER 2025-02-27 13:47 | Outpatient (AMB) | payer OTHER, SELFPAY ==
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
== END 2025-02-27 15:06 | disposition home or self-care (01) ==
LOC: HO.HOP 13:47
PROVIDERS: PCP Nurse Practitioner Family; Visit Provider Clinical Nurse Specialist Psychiatric/Mental Health, Adult
DX: F33.1 Major depressive disorder, recurrent, moderate (principal); F41.1 Generalized anxiety disorder; F43.10 Post-traumatic stress disorder, unspecified
CPT/HCPCS: 99204

== ENCOUNTER → 2025-02-27 13:47 | Outpatient (BNVA) | payer OTHER, SELFPAY | PROVIDERS: PCP Nurse Practitioner Family; Visit Provider Clinical Nurse Specialist Psychiatric/Mental Health, Adult | DX: F33.1 Major depressive disorder, recurrent, moderate (principal); F41.1 Generalized anxiety disorder; F43.10 Post-traumatic stress disorder, unspecified | CPT/HCPCS: 99202 ==

== ENCOUNTER 2025-03-02 15:12 | Outpatient (AMB) | payer OTHER, SELFPAY ==
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
--- OUTSIDE RECORDS SUMMARY | 2025-03-02 17:50 | XMS_ITS | Encounter Summary ---
Author Organization [facility] Address [address] [place] [address] Care Team Providers Care [employer] Coordinator Name Role Phone Kira Blandon MD Primary Care Provider Reason for Visit * Reason Comments Male Problem Left testicular pain here recently started abx gotten more swollen and painful today 10/ unable to sit down * Auth/Cert (Routine) Specialty Diagnoses / Procedures Referred By Elinor barr Referred To Contact Diagnoses Epididymoorchitis Procedures / Alex Boo MD [address] [place] [phone] Phone: tel: fax: [facility] [address] [place] [phone] Phone: tel: Referral ID Status Reason Start Date Expiration Date Visits Re quested Visits Authorized [id number] 1 1 Encounter Details Date Type Department Care Team (Late st Contact Info) Description 02/25/2025 5:16 PM EDT - 02/26/2025 4:18 PM EDT Hospital Encounter [facility] [address] [place] [address] Alex Boo MD [address] [place] [phone] Sukhi Rojas MD [address] [place] [address] [phone] Israel Loja MD [address] [place] [phone] Epididymoorchitis (Primary Dx) Discharge Disposition: Home or Self Care Social History Tobacco Use Types Packs/Day Years Used Date Smoking Tobacco: Never Smokeless Tobacco: Never Alcohol Use Standard Drinks/Week Comments No 0 (1 standard drink = 0.6 oz pur e alcohol) Interpersonal Safety Answer Date Record ed Physical Abuse 02/25/2025 Verbal Abuse 02/25/2025 Sex and Gender Information Value Date Recorded Sex Assigned at Not on file Legal Sex Male 11:32 PM EST Gender Identity Not on file Sexual Orientation Not on file documented as of this encounter Last Filed Vital Signs Vital Sign Reading Time Taken Comments Blood Pressure 143/85 02/26/2025 2:42 PM EDT Pulse 86 02/26/2025 2:42 PM EDT Temperature 36.4 ??C (97.5 ??F) 02/26/2025 2:42 PM ED T Respiratory Rate 18 02/26/2025 2:42 PM EDT Oxygen Saturation 97% 02/26/2025 2:42 PM EDT Inhaled Oxygen Concentration - - Weight 177 kg (390 lb) 02/25/2025 9:34 PM EDT Height 177.8 cm (5' 10 ) 02/25/2025 9:34 PM EDT Body Mass Index 55.96 02/25/2025 9:34 PM EDT documented in this encounter Functional Status * Are you deaf or do you have serious difficulty hearing? Answer Date of Assessment Author No 02/25/2025 5:28 PM EDT Santana RN * Are you blind or do you have serious difficulty seeing, even when wearing glasses? Answer Date of Assessment Author No 02/25/2025 5:28 PM EDT Santana RN * Do you have serious difficulty walking or climbing stairs? Answer Date of Assessment Author No 02/25/2025 5:28 PM EDT Santana RN * Do you have serious difficulty dressing or bathing? Answer Date of Assessment Author No 02/25/2025 5:28 PM EDT Santana RN * Because of a physical, mental, or emotional condition, do you have serious difficulty doing errandsalone such as visiting the doctor? Answer Date of Assessment Author No 02/25/2025 5:28 PM EDT Santana RN documented as of this encounter Mental Status * Because of a physical, mental, or emotional condition, do you have serious difficulty concentrating, remembering, or making decisions? (5 years old or older) Answer Entry Date Author No 02/25/2025 5:28 PM EDT Santana RN documented in this encounter Discharge Instructions * Discharge Instructions* MARGO Baumann - 02/26/2025 2:39 PM EDT Discontinue levofloxacin. Take Bactrim. Follow-up with your PCP. documented in this encounter Medications at Time of Discharge azelastine (ASTELIN) 137 mcg (0.1 %) nasal spray Administer 1 spray into each nostril 2 (two) times a day. Use in each nostril as directed brimonidine (ALPHAGAN) 0.2 % ophthalmic solution 1 drop 2 times daily. 10/10/2022 dorzolamide-dolores loL (COSOPT) 22.3-6.8 mg/mL ophthalmic solution Administer 1 drop into both eyes 2 (two) times a day. etanercept (ENBREL) 50 mg/mL (1 mL) injection syringe Inject 1 mL (50 mg total) under the skin 1 (one) time per week. fluticasone propion-salmeter oL (ADVAIR HFA) 115-21 mcg/actuation inhaler Inhale 2 puffs by mouth 2 (two) times a day. Rinse mouth with water after use to reduce aftertaste and incidence of candidiasis. Do not swallow. hydrOXYzine pamoate (VISTARIL) 50 mg capsule Take 1 capsule (50 mg total) by mouth 1 (one) time each day if needed for anxiety. Lumigan 0.01 % ophthalmic drops INSTILL 1 DROP INTO BOTH EYES EVERY NIGHT AT BEDTIME 11/13/2020 pilocarpine (PILOCAR) 2 % ophthalmic solution Administer 1 drop into both eyes 4 (four) times a day. sodium chloride (OCEAN) 0.65 % nasal spray Administer 1 spray into affected nostril(s) once daily as needed. sulfamethoxazole -trimethoprim (BACTRIM DS,SEPTRA DS) 800-160 mg per tablet Take 1 tablet by mouth 2 (two) times a day for 10 days. 20 each 02/26/2025 documented as of this encounter Ordered Prescriptions Prescription Sig Dispense Quantity Refills Last Filled Start Date End Date sulfamethoxazole-t rimethoprim (BACTRIM DS,SEPTRA DS) 800-160 mg per tablet Take 1 tablet by mouth 2 (two) times a day for 10 days. 20 each 02/26/2025 03/08/2025 documented in this encounter Discharge Disposition Disposition Code Departure Means Destination Home or Self Care documented in this encounter Progress Notes * Zuly Heard RN - 02/26/2025 3:45 PM EDT ..Discharge packet dicussed at bedside. All medications, follow up appointments and post dc instructions reviewed and understood with patient. All questions answered and necessary teaching done. * Robyn Crum RN - 02/26/2025 2:46 PM EDT 02/26/25 1446 Transportation Transportation at discharge Family What day is the transport expected? 02/26/25 Final Discharge Disposition Home or Self Care Patient discharging home no services * Robyn Crum RN - 02/26/2025 11:25 AM EDT 02/26/25 1125 Initial Transition Plan Initial Transition Plan Home Discharge Planning Living Arrangements Family members Type of Residence Private residence Assistive Devices None Support Systems Parent;Immediate family Medication Coverage Has Med Coverage Under Insurance Plan Yes Medication Affordability No concerns related to payment for meds Met with patient at bedside for planning. Patient states he is fully independent, does not have a healthcare proxy and is not interested in creating one this visit and his preference is home no services. * Angelica Joshi RN - 02/26/2025 5:30 AM EDT Problem: Cognitive: Acute Pain Goal: Expressions of feelings of enhanced comfort will increase Outcome: Progressing Problem: Physical Regulation:Infection Management Goal: Signs and symptoms of infection will decrease Outcome: Progressing Goal: Complications related to the disease process, condition or treatment will be avoided or minimized Outcome: Progressing Goal: Diagnostic test results will improve Outcome: Progressing Problem: Cognitive:Infection Management Goal: Knowledge of disease or condition will improve Outcome: Progressing Problem: Patient Specific Problem:Infection Management Goal: Patient Specific Outcome Outcome: Progressing Goals: Pain control, IV antibiotics as ordered Identify possible barriers to meeting goals/advancing plan of care: IV antibiotics Stability of the patient: Moderately Unstable - Medium risk of patient condition declining or worsening End of Shift Summary: No c/o pain overnight. VS stable. Left scrotum red & edematous, pt statesimprovement since admit. Pt independent in room. * Aixa Cruz RN - 02/25/2025 8:19 PM EDT ED RN HANDOFF (All Phillips Below Must Be Completed) Reason/Diagnosis for Admission: EPIDIDYMOORCHITIS Type of Admission: [x] Medsurg, [] Telemetry Already in a Hospital Bed: [] Yes / [] No Room Considerations/Precautions (ex: fever, diarrhea, or any infectious concerns): [] Yes / [x] No Elder Counselor: [] Yes / [x] No If YES, Cardiac Rhythm: [] NSR, [] SB, [] ST, [] A-FIB, [] A-Flutter, [] Pacemaker, [] 1st Degree HB, [] 2nd Degree HB, [] 3rd Degree HB Reason for Elder Counselor: VS: Visit Vitals BP (!) 151/94 (BP Location: Right arm;Lower, Patient Position: Lying) Pulse 88 Temp 36.8 ??C (98.2 ??F) (Oral) Resp 18 Ht 1.778 m (70 ) Wt 181 kg (400 lb) SpO2 98% BMI 57.39 kg/m?? Smoking Status Never BSA 2.8 m?? Current Mental Status: A/O x [x]4, []3, []2, []1 Current Ambulation Status: AMBULATORY INDEPENDENTLY IV Access: [x] Yes / [] No Field IV present: [] Yes / [x] No Hx of Violence: [] Yes / [x] No / [] Unknown Fall Risk:[] Yes / [x] No Yellow Bracelet Applied [] Yes / [] No Yellow Socks Applied [] Yes / [] No Patient Belongings inventoried and BL completed: [x] Yes / [] No Patient belongings stored in the security closet: [] Yes (If Yes please supply Security bag #): [x] No Patient Medications stored in Pharmacy: [] Yes (If Yes please supply Medication Security bag #): [x] No ED Summary of Care: PT HERE FOR SCROTAL SWELLING STARTED PO ANTIBIOTICS HOWEVER PAIN /DISCOMFORT INCREASED. CT SCAN TO RULEOUT NIKUNJ'S GANGRENE. PT PAIN MANAGEABLE AFTER TYLENOL / TORADOL. Submitted by and Phone Extension: [place] [phone] * Israel Aldrich RN - 02/25/2025 2:20 PM EDT Pt having left testicular pain and swelling here recently started abx but has gotten significantly more painful and swollen today Previous US - Left epididymitis with probable reactive hyperemia of the left testicle. Associated hydrocele. No evidence of testicular torsion. documented in this encounter H&P Notes * MARGO Theodore - 02/25/2025 9:04 PM EDT Images from the original note were not included. MELODY HISTORY AND PHYSICAL Please contact author [MARGO Theodore] via [employer]. Patient: Eric Ramirez Admission Date/Time: 02/25/2025 5:16 PM : 1985 [40 y.o.] Patient's PCP: Kira Blandon MD Attending Provider: Sukhi Rojas MD CHIEF COMPLAINT 40-year-old male who presents with worsening testicular swelling and pain despite being started on antibiotic therapy 2 days ago HISTORY OF PRESENT ILLNESS Eric is a 40-year-old male with history of RAFFI, anxiety, who presented centimeters department withchief complaints of worsening testicular pain and swelling. Patient was diagnosed of epididymoorchitis and started on Levaquin 2 days ago. He reports worsening pain despite taking ibuprofen. States pain is 10/10. He reported having sex with men, insertive and receptive anal intercourse. On presentation vital signs was remarkable for BP max 156/94. Laboratory work was grossly unremarkable. Emergency department medicated patient with Zosyn. Patient transferred to [place]. Patient was very comfortable appearing during encounter. States that he has practiced receptive anal intercourse in the past. Denies current practice. States he currently feels better compared to presenting to the ED. Functional status prior to presentation: Independent Review of Systems Review of Systems Constitutional: Negative for chills and fever. Respiratory: Negative for chest tightness. Cardiovascular: Negative for chest pain. Gastrointestinal: Negative for nausea and vomiting. Genitourinary: Positive for scrotal swelling and testicular pain. MEDICAL HISTORY Past Medical History Past Medical History: Diagnosis Date Anxiety Esophageal reflux 05/11/2006 DX:Esophageal reflux Glaucoma RAFFI (obstructive sleep apnea) Past Surgical History Past Surgical History: Procedure Laterality Date COLONOSCOPY 06/29/09 [facility] PROCEDURE: HISTORICAL COLONOSCOPY; COMMENT: normal ESOPHAGOGASTRODUODENOSCOPY [facility] PROCEDURE: [place] ESOPHAGOGASTRODUODENOSCOPY TRANSORAL DIAGNOSTIC; COMMENT: normal Social History reports that he has never smoked. He has never used smokeless tobacco. He reports current drug use.Drug: Marijuana/Cannabis. He reports that he does not drink alcohol. Family History family history includes Other cancer in his uncle. Allergies has No Known Allergies. Home Medications Current Outpatient Medications on File Prior to Encounter Medication Sig Dispense Refill azelastine (ASTELIN) 137 mcg (0.1 %) nasal spray Administer 1 spray into each nostril 2 (two) timesa day. Use in each nostril as directed brimonidine (ALPHAGAN) 0.2 % ophthalmic solution 1 drop 2 times daily. dorzolamide-timoloL (COSOPT) 22.3-6.8 mg/mL ophthalmic solution Administer 1 drop into both eyes 2 (two) times a day. etanercept (ENBREL) 50 mg/mL (1 mL) injection syringe Inject 1 mL (50 mg total) under the skin 1 (one) time per week. fluticasone propion-salmeteroL (ADVAIR HFA) 115-21 mcg/actuation inhaler Inhale 2 puffs by mouth 2 (two) times a day. Rinse mouth with water after use to reduce aftertaste and incidence of candidiasis. Do not swallow. hydrOXYzine pamoate (VISTARIL) 50 mg capsule Take 1 capsule (50 mg total) by mouth 1 (one) time each day if needed for anxiety. levoFLOXacin (LEVAQUIN) 500 mg tablet Take 1 tablet (500 mg total) by mouth 1 (one) time each day for 9 days. 9 tablet 0 Lumigan 0.01 % ophthalmic drops INSTILL 1 DROP INTO BOTH EYES EVERY NIGHT AT BEDTIME pilocarpine (PILOCAR) 2 % ophthalmic solution Administer 1 drop into both eyes 4 (four) times a day. sodium chloride (OCEAN) 0.65 % nasal spray Administer 1 spray into affected nostril(s) once daily as needed. OBJECTIVE Vitals Visit Vitals BP (!) 151/94 (BP Location: Right arm;Lower, Patient Position: Lying) Pulse 88 Temp 36.8 ??C (98.2 ??F) (Oral) Resp 18 Temp (24hrs), Av ??C (98.6 ??F), Min:36.8 ??C (98.2 ??F), Max:37.2 ??C (99 ??F) Body mass index is 57.39 kg/m??. No results found for: PTWT , PTHT Physical Examination Physical Exam Constitutional: Appearance: Normal appearance. HENT: Head: Normocephalic. Cardiovascular: Rate and Rhythm: Normal rate. Pulses: Normal pulses. Abdominal: General: There is no distension. Tenderness: There is no abdominal tenderness. There is no guarding or rebound. Musculoskeletal: Right lower leg: No edema. Left lower leg: No edema. Skin: Capillary Refill: Capillary refill takes less than 2 seconds. Neurological: General: No focal deficit present. Mental Status: He is alert and oriented to person, place, and time. ECG: Was ECG Performed? No. Sinus Rhythm? N/A. Signs of acute ischemia? N/A LAB RESULTS (most recent) HEMATOLOGY Lab Results Component Value Date WBC 9.4 02/25/2025 HGB 13.9 02/25/2025 HCT 41.6 (L) 02/25/2025 MCV 81.7 02/25/2025 PLT 256 02/25/2025 CHEMISTRY Lab Results Component Value Date GLUCOSE 133 (H) 02/25/2025 NA 136 02/25/2025 K 4.1 02/25/2025 CO2 26 02/25/2025 CL 105 02/25/2025 BUN 10 02/25/2025 CREATININE 0.92 02/25/2025 EGFR 108 02/25/2025 CALCIUM 9.5 02/25/2025 ANIONGAP 5 02/25/[address] Pelvis w Contrast Final Result Impression: 1. No Nikunj's gangrene. 2. Severe scrotal wall edema. Large left hydrocele. Small right hydrocele. Scrotal ultrasound recommended for further evaluation. This document has been electronically signed by: Triny Jiang MD on 02/25/2025 20:10:48 US Scrotum and Contents Final Result NO EVIDENCE OF TORSION. LEFT EPIDIDYMOORCHITIS WITH MODERATE LEFT HYDROCELE -------- FINAL REPORT -------- Dictated By: KULWINDER DELUCA Dictated Date: 02/25/2025 15:40 ET Assigned Physician: KULWINDER DELUCA Reviewed and Electronically Signed By: KULWINDER DELUCA Signed Date: 02/25/2025 15:41 ET Workstation ID: [id number] Transcribed By: Self Edit Transcribed Date: 02/25/2025 15:40 ET ASSESSMENT & PLAN Left epididymoorchitis 40-year-old male diagnosed of epididymoorchitis 2 days ago started on Levaquin who presents with worsening scrotal pain and swelling. The patient is afebrile without significant leukocytosis. Scrotalultrasound revealed left epididymoorchitis. Admit Zosyn Urology consult N.p.o. 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 Rojas Admission checklist [x] Code status: Full Code - Default [x] VTE Prophylaxis: SCD [x] Diet order on admission: cardiac diet Dietary Orders (From admission, onward) Start Ordered 02/25/25 1916 Adult diet [facility]; Cardiac; Cardiac Diet effective now Question Answer Comment Location [facility] Diet Type (req) Cardiac Diet Type (cardiac) Cardiac 02/25/25 192 [x] Lines, tubes, drains: peripheral access [x] Medication reconciliation Health Care proxy with Phone number- Tasia is mother. Contact is [phone] Cosigned by Sukhi Rojas MD at 02/26/2025 9:56 PM EDT Associated attestation - Sukhi Rojas MD - 02/26/2025 9:56 PM EDT This is a split/shared visit with MARGO Theodore. I personally performed the medical decision making (MDM) for the care of this patient on 02/25/2025 as documented below 40-year-old male with history of anxiety, obstructive sleep apnea, glaucoma, and superobesity presents with left epididymoorchitis progressing despite 2 days of levofloxacin. After discussion with the ER provider, the patient will be placed in observation. CT imaging did not show any evidence of abscess or deep tissue space infection. Previously known left hydrocele was redemonstrated. The patient will be treated with IV Zosyn due to progression of disease on levofloxacin. Patient will be reassessed for response to antibiotic therapy daily. Management additional chronic medical problems as below. Sukhi Rojas MD 02/26/25 9:53 PM EDT documented in this encounter Consult Notes * Blue Roman MD - 02/26/2025 10:49 AM EDT Consults - Urology Reason for consult - epidydimoorchitis left History of Present Illness The patient is a 40 year old with severe obesity who presents with persistent testicular pain and swelling. He presented to the emergency department with persistent left-sided testicular pain and swelling. Previously diagnosed with epididymal bronchitis on February 23, he was treated with oral Levaquin, but symptoms persisted. He was admitted for intravenous antibiotics after a repeat CT scan. Pain is improving with the new antibiotics, but swelling remains. He engages in insertive and receptive anal intercourse with men. Past Medical History - Epididymal orchitis on February 23 - Testicular pain and swelling - Rheumatoid arthritis - Anxiety - Glaucoma - Severe obesity - Anal intercourse with men Social History - Severe obesity - Receptive and insertive anal intercourse with men Physical Exam GENITOURINARY: Left testicular swelling present. Minimally tender today Results RADIOLOGY CT scan: No evidence of Nikunj's gangrene, no free air or subcutaneous air (02/25/2025) Assessment and Plan Epididymo-orchitis Persistent left testicular pain and swelling post-Levaquin. Admitted for IV antibiotics. CT scan ruled out Nikunj's gangrene. Pain improving with current antibiotics. Swelling may persist 1-2 months. Consider alternative antibiotics for broader coverage. Explained pain improvement precedes swelling reduction. - Continue IV antibiotics as per current regimen. - Can discharge with either Bactrim DS or Doxycycline likely documented in this encounter Plan of Treatment Not on file documented as of this encounter Procedures Procedure Name Priority Date/Time Associated Diagnosis Comments CHLAMYDIA TRACHOMATIS AND NEISSERIA GONORRHOEAE PCR Routine 02/26/2025 10:08 AM EDT CBC WITH AUTO DIFFERENTIAL Routine 02/26/2025 6:13 AM EDT CBC AND DIFFERENTIAL Routine 02/26/2025 6:13 AM EDT C-REACTIVE PROTEIN Add-On 02/26/2025 6: 13 AM EDT MAGNESIUM Routine 02/26/2025 6:13 AM EDT BASIC METABOLIC PANEL Routine 02/26/2025 6:[address] PELVIS W CONTRAST STAT 02/25/2025 7:27 PM EDT URINALYSIS WITH REFLEX MICROSCOPIC AND CULTURE STAT 02/25/2025 3:26 PM EDT CANO URINE CULTURE TUBE STAT 02/25/2025 3:26 PM EDT URINALYSIS WITH REFLEX MICROSCOPIC AND CULTURE STAT 02/25/2025 3:26 PM EDT CBC WITH AUTO DIFFERENTIAL STAT 02/25/2025 3:20 PM EDT CBC AND DIFFERENTIAL STAT 02/25/2025 3:20 PM EDT COMPREHENSIVE METABOLIC PANEL STAT 02/25/2025 3:20 PM EDT US SCROTUM AND CONTENTS STAT 02/25/2025 3:13 PM EDT documented in this encounter Results * Chlamydia trachomatis and Neisseria gonorrhoeae molecular study (02/26/2025 10:08 AM EDT) Neisseria gonorrhoeae PCR Negative Negative LAB MOLECULAR DIAGNOSTICS METHOD 02/26/2025 2:14 PM EDT [facility] Chlamydia trachomatis PCR Negative Negative LAB MOLECULAR DIAGNOSTICS METHOD 02/26/2025 2:14 PM EDT [facility] Urine Urine specimen from urethra / Unknown Non-blood Collection / Unknown 02/26/2025 10:08 AM EDT 02/26/2025 11:11 AM EDT Marlena ARAGON LAB MICROBIOLOGY - GENERA L ORDERABLES Final Result [facility] [address] [place] [address], * (ABNORMAL) C-reactive protein (02/26/2025 6:13 AM EDT) C-Reactive Protein 4.69(H) <=0.50 mg/dL LAB CHEMISTRY METHOD 02/26/2025 8:58 AM EDT [facility] Blood Venous blood specimen / Unknown Venipuncture / Unknown 02/26/2025 6:13 AM EDT 02/26/2025 6:48 AM EDT Marlena ARAGON LAB BLOOD ORDERABLES [place] rosario Result [facility] [address] [place] [address], * (ABNORMAL) CBC auto differential (02/26/2025 6:13 AM EDT) WBC 6.4 4.8 - 10.8 K/mcL LAB HEMETOLOGY METHOD 02/26/2025 7:17 AM [facility] RBC 4.70 4.50 - 5.50 M/[facility] LAB HEMETOLOGY METHOD 02/26/2025 7:17 AM [facility] Hemoglobin 12.8(L) 13.5 - 17.5 g/dL LAB HEMETOLOGY METHOD 02/26/2025 7:17 AM [facility] Hematocrit 38.4(L) 42.0 - 54.0 % LAB HEMETOLOGY METHOD 02/26/2025 7:17 AM [facility] MCV 82.1 79.0 - 98.0 FL LAB HEMETOLOGY METHOD 02/26/2025 7:17 AM [facility] MCH 27.4 27.0 - 32.0 pcg LAB HEMETOLOGY METHOD 02/26/2025 7:17 AM [facility] MCHC 33.3 32.0 - 37.0 g/dL LAB HEMETOLOGY METHOD 02/26/2025 7:17 AM [facility] RDW 13.5 11.0 - 15.0 % LAB HEMETOLOGY METHOD 02/26/2025 7:17 AM [facility] Platelets 220 130 - 400 K/mcL LAB HEMETOLOGY METHOD 02/26/2025 7:17 AM [facility] MPV 10.7 7.0 - 11.0 FL LAB HEMETOLOGY METHOD 02/26/2025 7:17 AM [facility] NRBC 0.0 <1.0 % LAB HEMETOLOGY METHOD 02/26/2025 7:17 AM [facility] NRBC Absolute 0.00 <0.10 K/mcL LAB HEMETOLOGY METHOD 02/26/2025 7:17 AM [facility] Neutrophils Relative 66.9 % LAB HEMETOLOGY METHOD 02/26/2025 7:17 AM [facility] Lymphocytes Relative 24.1 % LAB HEMETOLOGY METHOD 02/26/2025 7:17 AM [facility] Monocytes Relative 8.3 % LAB HEMETOLOGY METHOD 02/26/2025 7:17 AM [facility] Eosinophils Relative 0.0 % LAB HEMETOLOGY METHOD 02/26/2025 7:17 AM [facility] Basophils Relative 0.2 % LAB HEMETOLOGY METHOD 02/26/2025 7:17 AM [facility] Immature Granulocytes Relative 0.5 % LAB HEMETOLOGY METHOD 02/26/2025 7:17 AM [facility] Neutrophils Absolute 4.28 1.50 - 7.00 K/mcL LAB HEMETOLOGY METHOD 02/26/2025 7:17 AM [facility] Lymphocytes Absolute 1.54 1.00 - 5.00 K/mcL LAB HEMETOLOGY METHOD 02/26/2025 7:17 AM [facility] Monocytes Absolute 0.53 0.20 - 1.00 K/mcL LAB HEMETOLOGY METHOD 02/26/2025 7:17 AM EDT [facility] Eosinophils Absolute 0.00 0.00 - 0.50 K/[facility] HEMETOLOGY METHOD 02/26/2025 7:17 AM EDT [facility] Basophils Absolute 0.01 0.00 - 0.20 K/mcL LAB HEMETOLOGY METHOD 02/26/2025 7:17 AM EDT [facility] Immature Granulocytes Absolute 0.03 0.00 - 0.03 K/mcL LAB HEMETOLOGY METHOD 02/26/2025 7:17 AM EDT [facility] Blood Venous blood specimen / Unknown Venipuncture / Unknown 02/26/2025 6:13 AM EDT 02/26/2025 6:49 AM EDT us Alex Boo MD LAB BLOOD ORDERABLES Final Re sult Performing Organization Address City/[facility]/ZIP Co de Phone Number [facility] [address] [place] [address], [place] [phone] * Magnesium (02/26/2025 6:13 AM EDT) [facility] Magnesium 1.9 1.9 - 2.6 mg/dL LAB CHEMISTRY METHOD 02/26/2025 7:32 AM EDT [facility] Blood Venous blood specimen / Unknown Venipuncture / Unknown 02/26/2025 6:13 AM EDT 02/26/2025 6:48 AM EDT us Alex Boo MD LAB BLOOD ORDERABLES Final Re sult Performing Organization Address City/[facility]/ZIP Co de Phone Number [facility] [address] [place], [place] [address], [place] [phone] * (ABNORMAL) Basic metabolic panel (02/26/2025 6:13 AM EDT) Sodium 139 133 - 145 mmol/L LAB CHEMISTRY METHOD 02/26/2025 7:32 AM [facility] Potassium 4.0 3.5 - 5.5 mmol/L LAB CHEMISTRY METHOD 02/26/2025 7:32 AM [facility] Chloride 107 96 - 110 mmol/L LAB CHEMISTRY METHOD 02/26/2025 7:32 AM [facility] CO2 27 21 - 32 mmol/L LAB CHEMISTRY METHOD 02/26/2025 7:32 AM [facility] Anion Gap 5 3 - 11 LAB CHEMISTRY METHOD 02/26/2025 7:32 AM [facility] Glucose 108(H) 70 - 100 mg/dL LAB CHEMISTRY METHOD 02/26/2025 7:32 AM [facility] BUN 10 5 - 25 mg/dL LAB CHEMISTRY METHOD 02/26/2025 7:32 AM [facility] Creatinine 0.76 0.70 - 1.30 mg/dL LAB CHEMISTRY METHOD 02/26/2025 7:32 AM [facility] eGFR 117 >=60 mL/min/1. 73m2 LAB CHEMISTRY METHOD 02/26/2025 7:32 AM [facility] Comment:Calculation based on the Chronic Kidney Disease Epidemiology Collaboration (CKD-EPI) equation refit without adjustment for race. BUN/Creatinine Ratio 13.2 LAB CHEMISTRY METHOD 02/26/2025 7:32 AM [facility] Calcium 9.0 8.5 - 10.5 mg/dL LAB CHEMISTRY METHOD 02/26/2025 7:32 AM [facility] Blood Venous blood specimen / Unknown Venipuncture / Unknown 02/26/2025 6:13 AM EDT 02/26/2025 6:48 AM EDT us Alex Boo MD LAB BLOOD ORDERABLES Final Re sult [facility] [address] [place] [address], * CT Pelvis w Contrast (02/25/2025 7:27 PM EDT) Anatomical Region Laterality Modality Body, Pelvis Computed Tomogra phy 02/25/2025 8:10 PM EDT Impressions 02/25/2025 8:10 PM EDT Impression: 1. No Nikunj's gangrene. 2. Severe scrotal wall edema. Large left hydrocele. Small right hydrocele. Scrotal ultrasound recommended for further evaluation. This document has been electronically signed by: Triny Jiang MD on 02/25/2025 20:10:48 Narrative 02/25/2025 8:10 PM EDT INDICATION: ? forneirs Gangrene. 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 Worsening testicular pain and swelling. Findings: No edema or air within the soft tissues of the perineum. No Nikunj's gangrene. Severe scrotal wall edema. Large left hydrocele. Small right hydrocele. No inguinal hernia. Numerous small bilateral inguinal lymph nodes. No distal ureteral or bladder stones. No bladder wall thickening to suggest cystitis. Procedure Note Triny Jiang MD - 02/25/2025 INDICATION: ? forneirs Gangrene. 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 Worsening testicularpain and swelling. Findings: No edema or air within the soft tissues of the perineum. No Nikunj's gangrene. Severe scrotal wall edema. Large left hydrocele. Small right hydrocele. No inguinal hernia. Numerous small bilateral inguinal lymph nodes. No distal ureteral or bladder stones. No bladder wall thickening to suggest cystitis. IMPRESSION: Impression: 1. No Nikunj's gangrene. 2. Severe scrotal wall edema. Large left hydrocele. Small righthydrocele. Scrotal ultrasound recommended for further evaluation. This document has been electronically signed by: Triny Jiang MD on 02/25/2025 20:10:[address] PROCEDURES Final Re sult * Cano urine culture tube (02/25/2025 3:26 PM EDT) Pathologist [facility] Extra Tube Hold for add-ons. 02/26/2025 4:01 PM EDT [facility] Comment:Auto resulted. Urine Urine specimen obtained by clean catch procedure / Unknown Non-blood Collection / Unknown 02/25/2025 3:26 PM EDT 02/25/2025 3:38 PM EDT us Alex Boo MD LAB URINE ORDERABLES Final Re sult [facility] [address] [place] [address], [place] [phone] * (ABNORMAL) Urinalysis with reflex microscopic and culture (02/25/2025 3:26 PM EDT) [facility] [place] Urine 1.006 1.003 - 1.030 LAB URINALYSIS - AUTOMATED METHOD 02/25/2025 4:29 PM EDT [facility] pH, Urine 6.0 5.0 - 8.0 pH LAB URINALYSIS - AUTOMATED METHOD 02/25/2025 4:29 PM T [facility] Leukocytes, Urine Negative Negative LAB URINALYSIS - AUTOMATED METHOD 02/25/2025 4:29 PM T [facility] Nitrite, Urine Negative Negative LAB URINALYSIS - AUTOMATED METHOD 02/25/2025 4:29 PM T [facility] Protein, Urine Negative <=Trace mg/dL LAB URINALYSIS - AUTOMATED METHOD 02/25/2025 4:29 PM T [facility] Glucose, Urine Negative Negative mg/dL LAB URINALYSIS - AUTOMATED METHOD 02/25/2025 4:29 PM EDT [facility] Ketones, Urine Negative Negative mg/dL LAB URINALYSIS - AUTOMATED METHOD 02/25/2025 4:29 PM [facility] Urobilinogen, Urine 1.0 0.2 - 1.0 mg/dL LAB URINALYSIS - AUTOMATED METHOD 02/25/2025 4:29 PM [facility] Bilirubin, Urine Negative Negative LAB URINALYSIS - AUTOMATED METHOD 02/25/2025 4:29 PM [facility] Blood, Urine Trace(A) Negative LAB URINALYSIS - AUTOMATED METHOD 02/25/2025 4:29 PM [facility] RBC, Urine 0.9 0 - 4 /HPF LAB URINALYSIS - AUTOMATED METHOD 02/25/2025 4:29 PM [facility] WBC, Urine 0.7 0 - 4 /HPF LAB URINALYSIS - AUTOMATED METHOD 02/25/2025 4:29 PM [facility] Squamous Epithelial, Urine 1 0 - 60 /LPF LAB URINALYSIS - AUTOMATED METHOD 02/25/2025 4:29 PM [facility] Bacteria, Urine Negative Negative /HPF LAB URINALYSIS - AUTOMATED METHOD 02/25/2025 4:29 PM [facility] Hyaline Casts, Urine 0.0 0 - 3 /LPF LAB URINALYSIS - AUTOMATED METHOD 02/25/2025 4:29 PM [facility] Urine Urine specimen obtained by clean catch procedure / Unknown Non-blood Collection / Unknown 02/25/2025 3:26 PM EDT 02/25/2025 3:38 PM EDT us Alex Boo MD LAB URINE ORDERABLES Final Re sult [facility] [address] [place] [address], [place] [phone] * (ABNORMAL) CBC auto differential (02/25/2025 3:20 PM EDT) [facility] WBC 9.4 4.8 - 10.8 K/mcL LAB HEMETOLOGY METHOD 02/25/2025 3:43 PM EDT [facility] RBC 5.10 4.50 - 5.50 M/mcL LAB HEMETOLOGY METHOD 02/25/2025 3:43 PM EDT [facility] Hemoglobin 13.9 13.5 - 17.5 g/dL LAB HEMETOLOGY METHOD 02/25/2025 3:43 PM EDT [facility] Hematocrit 41.6(L) 42.0 - 54.0 % LAB HEMETOLOGY METHOD [facility]/25[facility]25 [facility] MCV 81.7 79.0 - 98.0 FL LAB HEMETOLOGY METHOD 02/25/2025 3:[facility] MCH 27.3 27.0 - 32.0 pcg LAB HEMETOLOGY METHOD 02/25/2025 3:43 [facility] MCHC 33.4 32.0 - 37.0 g/dL LAB HEMETOLOGY METHOD 02/25/2025 3:43 [facility] RDW 13.4 11.0 - 15.0 % LAB HEMETOLOGY METHOD 02/25/2025 3:43 PM EDT [facility] Platelets 256 130 - 400 K/mcL LAB HEMETOLOGY METHOD 02/25/2025 3:43 PM EDT [facility] MPV 10.6 7.0 - 11.0 FL LAB HEMETOLOGY METHOD 02/25/2025 3:[facility] NRBC 0.0 <1.0 % LAB HEMETOLOGY METHOD 02/25/2025 3:43 PM EDT [facility] NRBC Absolute 0.00 <0.10 K/mcL LAB HEMETOLOGY METHOD 02/25/2025 3:43 PM EDT [facility] Neutrophils Relative 65.2 % LAB HEMETOLOGY METHOD 02/25/2025 3:43 PM [facility] Lymphocytes Relative 26.8 % LAB HEMETOLOGY METHOD 02/25/2025 3:43 PM [facility] Monocytes Relative 7.3 % LAB HEMETOLOGY METHOD 02/25/2025 3:43 PM [facility] Eosinophils Relative 0.1 % LAB HEMETOLOGY METHOD 02/25/2025 3:43 PM [facility] Basophils Relative 0.1 % LAB HEMETOLOGY METHOD 02/25/2025 3:43 PM [facility] Immature Granulocytes Relative 0.5 % LAB HEMETOLOGY METHOD 02/25/2025 3:43 PM [facility] Neutrophils Absolute 6.12 1.50 - 7.00 K/mcL LAB HEMETOLOGY METHOD 02/25/2025 3:43 PM [facility] Lymphocytes Absolute 2.52 1.00 - 5.00 K/mcL LAB HEMETOLOGY METHOD 02/25/2025 3:43 PM [facility] Monocytes Absolute 0.69 0.20 - 1.00 K/mcL LAB HEMETOLOGY METHOD 02/25/2025 3:43 PM [facility] Eosinophils Absolute 0.01 0.00 - 0.50 K/mcL LAB HEMETOLOGY METHOD 02/25/2025 3:43 PM [facility] Basophils Absolute 0.01 0.00 - 0.20 K/mcL LAB HEMETOLOGY METHOD 02/25/2025 3:43 PM [facility] Immature Granulocytes Absolute 0.05(H) 0.00 - 0.03 K/mcL LAB HEMETOLOGY METHOD 02/25/2025 3:43 PM EDT [facility] Blood Venous blood specimen / Unknown Venipuncture / Unknown 02/25/2025 3:20 PM EDT 02/25/2025 3:36 PM EDT us Alex Boo MD LAB BLOOD ORDERABLES Final Re sult [facility] [address] [place] [address], [place] [phone] * (ABNORMAL) Comprehensive metabolic panel (02/25/2025 3:20 PM EDT) Sodium 136 133 - 145 mmol/L LAB CHEMISTRY METHOD 02/25/2025 4:12 PM [facility] Potassium 4.1 3.5 - 5.5 mmol/L LAB CHEMISTRY METHOD 02/25/2025 4:12 PM [facility] Chloride 105 96 - 110 mmol/L LAB CHEMISTRY METHOD 02/25/2025 4:12 PM [facility] CO2 26 21 - 32 mmol/L LAB CHEMISTRY METHOD 02/25/2025 4:12 PM [facility] Anion Gap 5 3 - 11 LAB CHEMISTRY METHOD 02/25/2025 4:12 PM [facility] Glucose 133(H) 70 - 100 mg/dL LAB CHEMISTRY METHOD 02/25/2025 4:12 PM [facility] BUN 10 5 - 25 mg/dL LAB CHEMISTRY METHOD 02/25/2025 4:12 PM [facility] Creatinine 0.92 0.70 - 1.30 mg/dL LAB CHEMISTRY METHOD 02/25/2025 4:12 PM [facility] eGFR 108 >=60 mL/min/1. 73m2 LAB CHEMISTRY METHOD 02/25/2025 4:12 PM [facility] Comment:Calculation based on the Chronic Kidney Disease Epidemiology Collaboration (CKD-EPI) equation refit without adjustment for race. BUN/Creatinine Ratio 10.9 LAB CHEMISTRY METHOD 02/25/2025 4:12 PM EDT [facility] Calcium 9.5 8.5 - 10.5 mg/dL LAB CHEMISTRY METHOD 02/25/2025 4:12 PM EDT [facility] AST (SGOT) 15 10 - 42 unit/L LAB CHEMISTRY METHOD 02/25/2025 4:12 PM EDT [facility] ALT (SGPT) 36 10 - 60 unit/L LAB CHEMISTRY METHOD 02/25/2025 4:12 PM EDT [facility] Alkaline Phosphatase 104 42 - 121 unit/L LAB CHEMISTRY METHOD 02/25/2025 4:12 PM [facility] Total Protein 7.2 6.0 - 8.0 g/dL LAB CHEMISTRY METHOD 02/25/2025 4:12 PM EDT [facility] Albumin 4.0 3.2 - 5.0 g/dL LAB CHEMISTRY METHOD 02/25/2025 4:12 PM EDT [facility] Total Bilirubin 0.8 0.0 - 1.4 mg/dL LAB CHEMISTRY METHOD 02/25/2025 4:12 PM EDT [facility] Blood Venous blood specimen / Unknown Venipuncture / Unknown 02/25/2025 3:20 PM EDT 02/25/2025 3:36 PM EDT us Alex Boo MD LAB BLOOD ORDERABLES Final Re sult [facility] [address] [place] [address], [place] [phone] * [place] Scrotum and Contents (02/25/2025 3:13 PM EDT) Anatomical Region Laterality Modality Body Ultrasound 02/25/2025 3:40 PM EDT Impressions 02/25/2025 3:41 PM EDT NO EVIDENCE OF TORSION. LEFT EPIDIDYMOORCHITIS WITH MODERATE LEFT HYDROCELE -------- FINAL REPORT -------- Dictated By: KULWINDER DELUCA Dictated Date: 02/25/2025 15:40 ET Assigned Physician: KULWINDER DELUCA Reviewed and Electronically Signed By: KULWINDER DELUCA Signed Date: 02/25/2025 15:41 ET Workstation ID: [id number] Transcribed By: Self Edit Transcribed Date: 02/25/2025 15:40 ET Narrative 02/25/2025 3:41 PM EDT PROCEDURE: US SCROTUM AND CONTENTS INDICATION: Pain TECHNIQUE: ??2-D cano scale, color Doppler ultrasound of the scrotum. COMPARISON: No priors available. FINDINGS: Right testicle measures 4.5 x 3.1 x 2.3 cm. Left testicle measures 3.6 x 3.1 x 3.3 cm. No evidence of torsion. ??Increased vascularity at the left testicle and epididymis. ??Moderate left hydrocele. ??Small right hydrocele. No intratesticular mass. Procedure Note Kulwinder Deluca MD - 02/25/2025 PROCEDURE: US SCROTUM AND CONTENTS INDICATION: Pain TECHNIQUE: 2-D cano scale, color Doppler ultrasound of the scrotum. COMPARISON: No priors available. FINDINGS: Right testicle measures 4.5 x 3.1 x 2.3 cm. Left testicle measures 3.6 x 3.1 x 3.3 cm. No evidence of torsion. Increased vascularity at the left testicle andepididymis. Moderate left hydrocele. Small right hydrocele. No intratesticular mass. IMPRESSION: NO EVIDENCE OF TORSION. LEFT EPIDIDYMOORCHITIS WITH MODERATE LEFT HYDROCELE -------- FINAL REPORT -------- Dictated By: KULWINDER DELUCA Dictated Date: 02/25/2025 15:40 ET Assigned Physician: KULWINDER DELUCA Reviewed and Electronically Signed By: KULWINDER DELUCA Signed Date: 02/25/2025 15:41 ET Workstation ID: [id number] Transcribed By: Self Edit Transcribed Date: 02/25/2025 15:40 ET Alex Boo MD IMG US PROCEDURES Final Resul t documented in this encounter Visit Diagnoses Diagnosis Epididymoorchitis- Primary Unspecified orchitis and epididymitis Epididymoorchitis Unspecified orchitis and epididymitis documented in this encounter Admitting Diagnoses Diagnosis Epididymoorchitis Unspecified orchitis and epididymitis documented in this encounter Administered Medications Inactive Administered Medications - up to 3 most recent administrations Medication Order MAR Action Action Date Dose Rate Site acetaminophen (TYLENOL) tablet 1,000 mg 1,000 mg, oral, Once, On 02/25/25 at 1754, For 1 dose Given 02/25/2025 6:13 PM EDT 1,000 mg acetaminophen (TYLENOL) tablet 650 mg 650 mg, oral, Every 6 hours PRN, mild pain, fever - temperature GREATER than 38 C (100.4 F), Starting on Thu02/25/25 at 1915 azelastine (ASTELIN) 137 mcg (0.1 %) nasal spray 1 spray 1 spray, Each Nostril, 2 times daily, First dose on 02/25/25 at 2214 Given 02/26/2025 9:11 AM EDT 1 spray Given 02/25/2025 10:30 PM EDT 1 spray brimonidine (ALPHAGAN) 0.2 % ophthalmic solution 1 drop 1 drop, Both Eyes, 2 times daily, First dose on Thu02/25/25 at 2214 Given 02/26/2025 9:10 AM EDT 1 drop Given 02/25/2025 10:30 PM EDT 1 drop budesonide (PULMICORT) 1 mg/2 mL nebulizer solution 1 mg 1 mg, nebulization, Daily, First dose on Thu02/26/25 at 0800, Rinse mouth with water after use to reduce aftertaste and incidence of candidiasis. Do not swallow. Therapeutic substitution for ADVAIR HFA 115/21 is budesonide neb daily and formoterol neb twice daily. Given 02/26/2025 9:30 AM EDT 1 mg dorzolamide-timoloL (COSOPT) 22.3-6.8 mg/mL ophthalmic solution 1 drop 1 drop, Both Eyes, 2 times daily, First dose on 02/25/25 at 2215 Given 02/26/2025 9:09 AM EDT 1 drop Given 02/25/2025 10:30 PM EDT 1 drop formoterol (PERFOROMIST) 20 mcg/2 mL nebulizer solution 20 mcg 20 mcg, nebulization, 2 times daily, First dose on 02/25/25 at 2215, Therapeutic substitution for ADVAIR HFA 115/21 is budesonide neb daily and formoterol neb twice daily. Given 02/26/2025 9:35 AM EDT 20 mcg HYDROmorphone (PF) injection 0.5 mg 0.5 mg, intravenous, Every 3 hours PRN, severe pain or when therapies for moderate pain were not effective, Starting on 02/25/25 at 1915 hydrOXYzine pamoate (VISTARIL) capsule 50 mg 50 mg, oral, Daily PRN, anxiety, Starting on 02/25/25 at 2151 Given 02/26/2025 12:26 AM EDT 50 mg iopamidoL (ISOVUE-370) 370 mg iodine /mL (76 %) injection 100 mL 100 mL, intravenous, Once in imaging, Starting on 02/25/25 at 1918, For 1 dose Given 02/25/2025 7:24 PM EDT 9 0 mL ketorolac (TORADOL) injection 15 mg 15 mg, intravenous, Once, On 02/25/25 at 1753, For 1 dose Given 02/25/2025 6:12 PM EDT 15 mg latanoprost (XALATAN) 0.005 % ophthalmic solution 1 drop 1 drop, Both Eyes, Nightly, First dose on 02/25/25 at 2215 Given 02/25/2025 10:30 PM EDT 1 drop melatonin tablet 6 mg 6 mg, oral, Once, On 02/26/25 at 0030, For 1 dose Given 02/26/2025 12:25 AM EDT 6 mg naloxone (NARCAN) injection 0.04 mg 0.04 mg, intravenous, As needed, opioid reversal, IV Push every 1 min for 10 doses, Starting on 02/25/25 at 1915, For 10 doses, To Dilute: -Use 0.4 mg/mL vial , withdraw 1 mL and add 9 mL NS -FOLLOWING DILUTION, dose of 0.04 mg = 1 mL For PARTIAL Opioid Reversal: -For respiratory rate LESS than 10 or Pasero Opioid-induced Sedation Scale (POSS) equal to 4 -May be repeated at 1 minute intervals to restore adequate respirations -Administer up to 10 doses (0.4 mg) ondansetron (PF) (ZOFRAN) injection 4 mg 4 mg, intravenous, Every 6 hours PRN, vomiting, nausea, Starting on 02/25/25 at 1915, -ONLY give IV if patient is unable to take orally. -If inadequate response within 30 minutes, proceed to next-line agent or contact provider if no further options ordered. oxyCODONE (ROXICODONE) immediate release tablet 5 mg 5 mg, oral, Every 4 hours PRN, moderate pain or when therapies for mild pain were not effective, Starting on 02/25/25 at 1915 pilocarpine (PILOCAR) 2 % ophthalmic solution 1 drop 1 drop, Both Eyes, 4 times daily, First dose on 02/25/25 at 2215 Given 02/26/2025 1:50 PM EDT 1 drop Given 02/26/2025 9:10 AM EDT 1 drop Given 02/25/2025 10:30 PM EDT 1 drop piperacillin-tazobactam (ZOSYN) 4.5 g in sodium chloride 0.9 % 100 mL IVPB 4.5 g, intravenous, at 200 mL/hr, Administer over 0.5 Hours, Once, On 02/25/25 at 1844, For 1 dose, Do not administer through same line as lactated ringer? s fluids (LR), Indication: Urinary Tract/Genitourinary New Bag 02/25/2025 7:12 PM EDT 4.5 g 200 mL/hr piperacillin-tazobactam (ZOSYN) 4.5 g in sodium chloride 0.9 % 100 mL IVPB 4.5 g, intravenous, at 25 mL/hr, Administer over 4 Hours, Every 8 hours, First dose on 02/26/25 at 0200, For 7 days, Do not administer through same line as lactated ringer? s fluids (LR), Indication: Urinary Tract/Genitourinary New Bag 02/26/2025 10:24 AM EDT 4.5 g 25 mL/hr New Bag 02/26/2025 2:34 AM EDT 4.5 g 25 mL/hr polyethylene glycol (MIRALAX) packet 17 g 17 g, oral, Nightly, First dose on 02/25/25 at 2100, Bowel Regimen - for prevention of constipation sodium chloride 0.9 % flush 10 mL 10 mL, intravenous, Once, On 02/25/25 at 1919, For 1 dose Given 02/25/2025 7:24 PM EDT 10 mL sodium chloride 0.9 % flush 10 mL 10 mL, intravenous, 2 times daily, First dose on 02/25/25 at 2100 Given 02/26/2025 9:11 AM EDT 10 mL sodium chloride 0.9 % flush 10 mL 10 mL, intravenous, As needed, line care, Starting on 02/25/25 at 1915 documented in this encounter Discontinued Medications Medication Sig Discontinue Reason Start Date End Da te adalimumab (Humira) 40 mg/0.8 mL syringe Inject under the skin. 02/25/2025 dorzolamide (TRUSOPT) 2 % ophthalmic solution Administer 1 drop into both eyes 2 (two) times a day. 02/25/2025 timolol (TIMOPTIC) 0.5 % ophthalmic solution Administer 1 drop into both eyes 2 (two) times a day. 03/30/2024 02/25/2025 cyclobenzaprine (FLEXERIL) 5 mg tablet TAKE 1 TABLET BY MOUTH AT BEDTIME FOR FOR MUSCLE SPASMS 02/25/2025 levoFLOXacin (LEVAQUIN) 500 mg tablet Take 1 tablet (500 mg total) by mouth 1 (one) time each day for 9 days. Discontinued by another clinician 02/24/2025 02/25/2025 documented as of this encounter Historical Medications * This list may reflect changes made after this encounter. pilocarpine (PILOCAR) 2 % ophthalmic solution Administer 1 drop into both eyes 4 (four) times a day. hydrOXYzine pamoate (VISTARIL) 50 mg capsule Take 1 capsule (50 mg total) by mouth 1 (one) time each day if needed for anxiety. fluticasone propion-salmeter oL (ADVAIR HFA) 115-21 mcg/actuation inhaler Inhale 2 puffs by mouth 2 (two) times a day. Rinse mouth with water after use to reduce aftertaste and incidence of candidiasis. Do not swallow. etanercept (ENBREL) 50 mg/mL (1 mL) injection syringe Inject 1 mL (50 mg total) under the skin 1 (one) time per week. dorzolamide-dolores loL (COSOPT) 22.3-6.8 mg/mL ophthalmic solution Administer 1 drop into both eyes 2 (two) times a day. azelastine (ASTELIN) 137 mcg (0.1 %) nasal spray Administer 1 spray into each nostril 2 (two) times a day. Use in each nostril as directed added in this encounter Active and Recently Administered Medications Times are shown in EDT. Scheduled Medication Order 02/24/2025 02/25/2025 02/26/2025 acetaminophen (TYLENOL) tablet 1,000 mg (COMPLETED) 1,000 mg, oral, Once, On 02/25/25 at 1754, For 1 dose 1813 (Given - Provider: Dorita Christine RN) azelastine (ASTELIN) 137 mcg (0.1 %) nasal spray 1 spray 1 spray, Each Nostril, 2 times daily, First dose on 02/25/25 at 2215 2230 (Given - Provider: Angelica Joshi RN) 0911 (Given - Provider: Stacia Dowd, SIMON) brimonidine (ALPHAGAN) 0.2 % ophthalmic solution 1 drop 1 drop, Both Eyes, 2 times daily, First dose on 02/25/25 at 2215 2230 (Given - Provider: Angelica Joshi RN) 0910 (Given - Provider: Stacia Dowd, SIMON) budesonide (PULMICORT) 1 mg/2 mL nebulizer solution 1 mg(Linked Group 1) 1 mg, nebulization, Daily, First dose on Thu02/26/25 at 0800, Rinse mouth with water after use to reduce aftertaste and incidence of candidiasis. Do not swallow. Therapeutic substitution for ADVAIR HFA 115/21 is budesonide neb daily and formoterol neb twice daily. 0930 (Given - Provid er: Parisa Ruano - Comment: Therapist not available) dorzolamide-timoloL (COSOPT) 22.3-6.8 mg/mL ophthalmic solution 1 drop 1 drop, Both Eyes, 2 times daily, First dose on 02/25/25 at 2215 2230 (Given - Provider: Angelica Joshi RN) 0909 (Given - Provider: Stacia Dowd RN) formoterol (PERFOROMIST) 20 mcg/2 mL nebulizer solution 20 mcg(Linked Group 1) 20 mcg, nebulization, 2 times daily, First dose on 02/25/25 at 2215, Therapeutic substitution for ADVAIR HFA 115/21 is budesonide neb daily and formoterol neb twice daily. 2230 (Not Given - Provider: Angelica Joshi RN - Reason: Patient/Resident/Agent refused - education provided ) 0935 (Given - Provider: Parisa Ruano) iopamidoL (ISOVUE-370) 370 mg iodine /mL (76 %) injection 100 mL (COMPLETED) 100 mL, intravenous, Once in imaging, Starting on 02/25/25 at 1918, For 1 dose 192 (Given - Provider: Shiloh Dickinson) ketorolac (TORADOL) injection 15 mg (COMPLETED) 15 mg, intravenous, Once, On 02/25/25 at 1753, For 1 dose 1811 (Given - Provider: Dorita Christine RN) latanoprost (XALATAN) 0.005 % ophthalmic solution 1 drop 1 drop, Both Eyes, Nightly, First dose on 02/25/25 at 2215 2230 (Given - Provider: Angelica Joshi RN) melatonin tablet 6 mg (COMPLETED) 6 mg, oral, Once, On 02/26/25 at 0030, For 1 dose 0025 (Given - Provid er: Angelica Joshi RN) pilocarpine (PILOCAR) 2 % ophthalmic solution 1 drop 1 drop, Both Eyes, 4 times daily, First dose on 02/25/25 at 2215 2230 (Given - Provider: Angelica Joshi RN) 0910 (Given - Provider: Stacia Dowd RN)1350 (Given - Provider: tSacia Dowd RN)1700 (Canceled Entry - Provider: Automatic Discharge Provider - Comment: Automatically canceled at discontinue of medication order) piperacillin-tazobactam (ZOSYN) 4.5 g in sodium chloride 0.9 % 100 mL IVPB (COMPLETED) 4.5 g, intravenous, at 200 mL/hr, Administer over 0.5 Hours, Once, On 02/25/25 at 1844, For 1 dose, Do not administer through same line as lactated ringer? s fluids (LR), Indication: Urinary Tract/Genitourinary 1911 (New Bag - Provider: Aixa Cruz RN)2017 (Stopped - Provider: Aixa Cruz RN) piperacillin-tazobactam (ZOSYN) 4.5 g in sodium chloride 0.9 % 100 mL IVPB 4.5 g, intravenous, at 25 mL/hr, Administer over 4 Hours, Every 8 hours, First dose on 02/26/25 at 0200, For 7 days, Do not administer through same line as lactated ringer? s fluids (LR), Indication: Urinary Tract/Genitourinary 0234 (New Bag - Prov ider: Angelica Joshi RN)0558 (Stopped - Provider: Angelica Joshi RN)0954 (Not Given - Provider: Stacia Dowd RN - Reason: Other - Comment: vial fell question glass in vial)1024 (New Bag - Provider: Stacia Dowd RN)1453 (Stopped - Provider: Stacia Dowd RN)1800 (Canceled Entry - Provider: Automatic Discharge Provider - Comment: Automatically canceled at discontinue of medication order) polyethylene glycol (MIRALAX) packet 17 g 17 g, oral, Nightly, First dose on 02/25/25 at 2100, Bowel Regimen - for prevention of constipation 2057 (Not Given - Provider: Aixa Cruz RN - Reason: Patient/Resident/Agent refused - education provided ) sodium chloride 0.9 % flush 10 mL (COMPLETED) 10 mL, intravenous, Once, On 02/25/25 at 1919, For 1 dose 192 (Given - Provider: Shiloh Dickinson) sodium chloride 0.9 % flush 10 mL(Linked Group 2) 10 mL, intravenous, 2 times daily, First dose on 02/25/25 at 2100 2057 (Not Given - Provider: Aixa Cruz RN - Reason: Other - Comment: PT LINE FLUSHED BEFORE AND AFTER ANTIBIOTIC ADMINISTRATION) 0911 (Given - Provider: Stacia Dowd, SIMON) PRN Medication Order 02/24/2025 02/25/2025 02/26/2025 acetaminophen (TYLENOL) tablet 650 mg 650 mg, oral, Every 6 hours PRN, mild pain, fever - temperature GREATER than 38 C (100.4 F), Starting on 02/25/25 at 1914 HYDROmorphone (PF) injection 0.5 mg 0.5 mg, intravenous, Every 3 hours PRN, severe pain or when therapies for moderate pain were not effective, Starting on 02/25/25 at 191 hydrOXYzine pamoate (VISTARIL) capsule 50 mg 50 mg, oral, Daily PRN, anxiety, Starting on 02/25/25 at 2151 0026 (Given - Provid er: Angelica Joshi RN) naloxone (NARCAN) injection 0.04 mg 0.04 mg, intravenous, As needed, opioid reversal, IV Push every 1 min for 10 doses, Starting on 02/25/25 at 1914, For 10 doses, To Dilute: -Use 0.4 mg/mL vial , withdraw 1 mL and add 9 mL NS -FOLLOWING DILUTION, dose of 0.04 mg = 1 mL For PARTIAL Opioid Reversal: -For respiratory rate LESS than 10 or [place]ero Opioid-induced Sedation Scale (POSS) equal to 4 -May be repeated at 1 minute intervals to restore adequate respirations -Administer up to 10 doses (0.4 mg) ondansetron (PF) (ZOFRAN) injection 4 mg 4 mg, intravenous, Every 6 hours PRN, vomiting, nausea, Starting on 02/25/25 at 191, -ONLY give IV if patient is unable to take orally. -If inadequate response within 30 minutes, proceed to next-line agent or contact provider if no further options ordered. oxyCODONE (ROXICODONE) immediate release tablet 5 mg 5 mg, oral, Every 4 hours PRN, moderate pain or when therapies for mild pain were not effective, Starting on 02/25/25 at 1914 sodium chloride 0.9 % flush 10 mL(Linked Group 2) 10 mL, intravenous, As needed, line care, Starting on 02/25/25 at 1914 Linked Groups Order Group 1: budesonide (PULMICORT) 1 mg/2 mL nebulizer solution 1 mgJump to med 1 mg, nebulization, Daily, First dose on Thu02/26/25 at 0800, Rinse mouth with water after use to reduce aftertaste and incidence of candidiasis. Do not swallow. Therapeutic substitution for ADVAIR HFA 115/21 is budesonide neb daily and formoterol neb twice daily. And formoterol (PERFOROMIST) 20 mcg/2 mL nebulizer solution 20 mcgJump to med 20 mcg, nebulization, 2 times daily, First dose on 02/25/25 at 2215, Therapeutic substitution for ADVAIR HFA 115/21 is budesonide neb daily and formoterol neb twice daily. Group 2: Insert peripheral IV (CANCELED) STAT, Once, On 02/25/25 at 191, For 1 occurrence And Maintain IV access (CANCELED) Until discontinued, Starting on 02/25/25 at 1916, Until Specified And Saline lock IV (CANCELED) Routine, Once, On 02/25/25 at 191, For 1 occurrence And sodium chloride 0.9 % flush 10 mLJump to med 10 mL, intravenous, 2 times daily, First dose on 02/25/25 at 2100 And sodium chloride 0.9 % flush 10 mLJump to med 10 mL, intravenous, As needed, line care, Starting on 02/25/25 at 1915 documented in this encounter Orders Medications Ordered That Adrian ht Not Have Been Administered Count Last Ordered Date First Ordered Date acetaminophen (TYLENOL) tablet 650 mg 1 03/2025 HYDROmorphone (PF) injection 0.5 mg 1 02/25 naloxone (NARCAN) injection 0.04 mg 1 02/25 ondansetron (PF) (ZOFRAN) injection 4 mg 1 02/25/2025 oxyCODONE (ROXICODONE) immed iate release tablet 5 mg 1 02/25/2025 polyethylene glycol (MIRALAX) packet 17 g 1 02/25/2025 sodium chloride 0.9 % flush 10 mL 1 025 Admission Count Last Ordered Date First Orde red Date INITIATE OBSERVATION STATUS 02/26/2025 ADMIT TO INPATIENT 02/25/2025 Transfer Count Last Ordered Date First Orde red Date ED TO FLOOR BED REQUEST 1 02/25/2025 Discharge Count Last Ordered Date First Orde red Date DISCHARGE PATIENT 02/26/2025 documented in this encounter Care Teams [employer] Coordinator Relationship Specialty Start Date End Date Kira Blandon MD [address] [place] [id number] PCP - General 08/26/23 documented as of this encounter
== END 2025-03-02 16:30 | disposition home or self-care (01) ==
LOC: HO.HMCFM 15:12
PROVIDERS: PCP Nurse Practitioner Family; Visit Provider Nurse Practitioner Family
DX: Z09 Encounter for follow-up examination after completed treatment for conditions other than malignant neoplasm (principal); N45.1 Epididymitis

== ENCOUNTER → 2025-03-02 15:12 | Outpatient (BNVA) | payer OTHER, SELFPAY | PROVIDERS: PCP Nurse Practitioner Family; Visit Provider Nurse Practitioner Family ==

== ENCOUNTER 2025-03-29 13:57 | Outpatient (AMB) | payer OTHER, SELFPAY ==
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
--- OUTSIDE RECORDS SUMMARY | 2025-03-29 14:41 | XMS_ITS | Clinical Summary ---
Author Organization [address] [place] [address] [place] [phone] Phone Care Team Providers Care Power Builder Developer Name Role Phone Kira Blandon MD Primary Care Provider Allergies No known active allergies Medications Lumigan 0.01 % ophthalmic drops INSTILL 1 DROP INTO BOTH EYES EVERY NIGHT AT BEDTIME 1 Active brimonidine (ALPHAGAN) 0.2 % ophthalmic solution 1 drop 2 times daily. 3 Active sodium chloride (OCEAN) 0.65 % nasal spray Administer 1 spray into affected nostril(s) once daily as needed. Active azelastine (ASTELIN) 137 mcg (0.1 %) nasal spray Administer 1 spray into each nostril 2 (two) times a day. Use in each nostril as directed Active dorzolamide-areli oloL (COSOPT) 22.3-6.8 mg/mL ophthalmic solution Administer 1 drop into both eyes 2 (two) times a day. Active etanercept (ENBREL) 50 mg/mL (1 mL) injection syringe Inject 1 mL (50 mg total) under the skin 1 (one) time per week. Active fluticasone propion-salmete roL (ADVAIR HFA) 115-21 mcg/actuation inhaler Inhale 2 puffs by mouth 2 (two) times a day. Rinse mouth with water after use to reduce aftertaste and incidence of candidiasis. Do not swallow. Active hydrOXYzine pamoate (VISTARIL) 50 mg capsule Take 1 capsule (50 mg total) by mouth 1 (one) time each day if needed for anxiety. Active pilocarpine (PILOCAR) 2 % ophthalmic solution Administer 1 drop into both eyes 4 (four) times a day. Active sulfamethoxazol e-trimethoprim (BACTRIM DS,SEPTRA DS) 800-160 mg per tablet Take 1 tablet by mouth 2 (two) times a day for 10 days. 20 each 03/08/20 25 Active Problems Problem Noted Date Diagnosed Date Epididymoorchitis 02/25/2025 Encounters Date Type Department Care Team Description 02/25/2025 5:16 PM EDT - 02/26/2025 4:18 PM EDT Hospital Encounter [facility] Urology [address] [place] [id number] Alex Boo MD Jones, Christopher, MD Zipagan, James T, MD Epididymoorchitis (Primary Dx) Discharge Disposition: Home or Self Care 02/24/2025 4:44 AM EDT - 02/24/2025 5:59 AM EDT Emergency [facility] Emergency [address] [place] [id number] Johan Smith MD Epididymoorchitis (Primary Dx) Discharge Disposition: Home or Self Care from Last 3 Months Immunizations Name Administration Dates Next Due Hepatitis B (Dquwrkr-E-Cvvro , Recombivax HB-Adult) 19yo and older 05/12/2013 [...] History Surgery Date Site/Laterality Comments COLONOSCOPY 06/29/09 [facility] PROCEDURE: HISTORICAL COLONOSCOPY; COMMENT: normal ESOPHAGOGASTRODUODENOSCOPY Lauren PROCEDURE: AK ESOPHAGOGASTRODUODENOSCOPY TRANSORAL DIAGNOSTIC; COMMENT: normal Medical History Medical History Date Comments Esophageal reflux 05/11/2006 DX:Esophageal reflux Anxiety Glaucoma RAFFI (obstructive sleep apnea) Family History Medical History Relation Name Comments [...] 86 02/26/2025 2:42 PM EDT Temperature 36.4 C (97.5 F) 02/26/2025 2:42 PM EDT Respiratory Rate 18 02/26/2025 2:42 PM EDT Oxygen Saturation 97% 02/26/2025 2:42 PM EDT Inhaled Oxygen Concentration - - Weight 177 kg (390 lb) 02/25/2025 9:34 PM EDT Height 177.8 cm (5' 10 ) 02/25/2025 9:34 PM EDT Body Mass Index 55.96 02/25/2025 9:34 PM EDT Plan of Treatment Health Maintenance Due Date Last Done Comments Hepatitis B Vaccines (2 of 3 - 19+ 3-dose series) 06/09/2013 05/12/2013 Cholesterol Screening (Lipid Panel) 08/24/2022 04/27/2013 Depression Screening 08/24/2022 Social Influencers of Health Screening 08/24/2022 COVID-19 Vaccine ( season) 2024 10/04/2021, 02/16/2021, 01/26/2021 Influenza Vaccine (#1) 2025 , 08/07/2023, 10/04/2021, Additional history exists DTaP,Tdap,and Td Vaccines (4 [...] 5 Years) and At-Risk Patients (6 to 49 Years) Aged Out No longer eligible based [...] GONORRHOEAE PCR Routine 02/26/2025 10:08 AM EDT C-REACTIVE PROTEIN Add-On 02/26/2025 6: 13 AM EDT CBC WITH AUTO DIFFERENTIAL Routine 02/26/2025 6:13 AM EDT CBC AND DIFFERENTIAL Routine 02/26/2025 6:13 AM EDT MAGNESIUM Routine 02/26/2025 6:13 AM EDT BASIC METABOLIC PANEL Routine 02/26/2025 6:[address] PELVIS W CONTRAST STAT 02/25/2025 7:27 PM EDT CANO URINE CULTURE TUBE STAT 02/25/2025 3:26 PM EDT URINALYSIS WITH REFLEX MICROSCOPIC AND CULTURE STAT 02/25/2025 3:26 PM EDT URINALYSIS WITH REFLEX MICROSCOPIC AND CULTURE STAT 02/25/2025 3:26 PM EDT CBC WITH AUTO DIFFERENTIAL STAT 02/25/2025 3:20 PM EDT COMPREHENSIVE METABOLIC PANEL STAT 02/25/2025 3:20 PM EDT CBC AND DIFFERENTIAL STAT 02/25/2025 3:20 PM EDT US SCROTUM AND CONTENTS STAT 02/25/2025 3:13 PM EDT POCT GLUCOSE BLOOD Routine 02/24/2025 3: 40 AM EDT US SCROTUM AND CONTENTS STAT 02/23/2025 11:54 PM EDT CANO URINE CULTURE TUBE STAT 02/23/2025 10:46 PM EDT URINALYSIS WITH REFLEX MICROSCOPIC AND CULTURE STAT 02/23/2025 10:46 PM EDT URINALYSIS WITH REFLEX MICROSCOPIC AND CULTURE STAT 02/23/2025 10:46 PM EDT CULTURE URINE STAT 02/23/2025 10:46 PM EDT CBC WITH AUTO DIFFERENTIAL STAT 02/23/2025 10:42 PM EDT BASIC METABOLIC PANEL STAT 02/23/2025 10:42 PM EDT CBC AND DIFFERENTIAL STAT 02/23/2025 10:42 PM EDT HEPATITIS C SCREENING Routine 11/12/2022 HIV SCREENING Routine 11/12/2022 LIPID PANEL Routine 04/27/2013 from Last 3 Months or Most Recently Relevant to Health Maintenance Results * Chlamydia trachomatis and Neisseria gonorrhoeae molecular study (02/26/2025 10:08 AM EDT) Pathologist [facility] Neisseria gonorrhoeae PCR Negative Negative LAB MOLECULAR DIAGNOSTICS METHOD 02/26/2025 2:14 PM EDT [facility] Chlamydia trachomatis PCR Negative Negative LAB MOLECULAR DIAGNOSTICS METHOD 02/26/2025 2:14 PM EDT [facility] Urine Urine specimen from urethra / Unknown Non-blood Collection / Unknown 02/26/2025 10:08 AM EDT 02/26/2025 11:11 AM EDT Marlena ARAGON LAB MICROBIOLOGY - GENERA L ORDERABLES Final Result [facility] [address] [place] [address], * (ABNORMAL) CBC auto differential (02/26/2025 6:13 AM EDT) Only the most recent of3 resultswithin the time period is included. [facility] WBC 6.4 4.8 - 10.8 K/mcL LAB HEMETOLOGY METHOD 02/26/2025 7:17 AM EDT [facility] RBC 4.70 4.50 - 5.50 M/mcL LAB HEMETOLOGY METHOD 02/26/2025 7:17 AM EDT [facility] Hemoglobin 12.8(L) 13.5 - 17.5 g/dL LAB HEMETOLOGY METHOD 02/26/2025 7:17 AM EDT [facility] Hematocrit 38.4(L) 42.0 - 54.0 % LAB HEMETOLOGY METHOD 02/26/2025 7:17 AM [facility] MCV 82.1 79.0 - 98.0 FL LAB HEMETOLOGY METHOD 02/26/2025 7:17 AM [facility] MCH 27.4 27.0 - 32.0 pcg LAB HEMETOLOGY METHOD 02/26/2025 7:17 AM [facility] MCHC 33.3 32.0 - 37.0 g/dL LAB HEMETOLOGY METHOD 02/26/2025 7:17 AM [facility] RDW 13.5 11.0 - 15.0 % LAB HEMETOLOGY METHOD 02/26/2025 7:17 AM [facility] Platelets 220 130 - 400 K/mcL LAB HEMETOLOGY METHOD 02/26/2025 7:17 AM [facility] MPV 10.7 7.0 - 11.0 FL LAB HEMETOLOGY METHOD 02/26/2025 7:17 AM [facility] NRBC 0.0 <1.0 % LAB HEMETOLOGY METHOD 02/26/2025 7:17 AM [facility] NRBC Absolute 0.00 <0.10 K/mcL LAB HEMETOLOGY METHOD 02/26/2025 7:17 AM [facility] Neutrophils Relative 66.9 % LAB HEMETOLOGY METHOD 02/26/2025 7:17 AM [facility] Lymphocytes Relative 24.1 % LAB HEMETOLOGY METHOD 02/26/2025 7:17 AM [facility] Monocytes Relative 8.3 % LAB HEMETOLOGY METHOD 02/26/2025 7:17 AM [facility] Eosinophils Relative 0.0 % LAB HEMETOLOGY METHOD 02/26/2025 7:17 AM EDT [facility] Basophils Relative 0.2 % LAB HEMETOLOGY METHOD 02/26/2025 7:17 AM EDT [facility] Immature Granulocytes Relative 0.5 % LAB HEMETOLOGY METHOD 02/26/2025 7:17 AM EDT [facility] Neutrophils Absolute 4.28 1.50 - 7.00 K/mcL LAB HEMETOLOGY METHOD 02/26/2025 7:17 AM EDT [facility] Lymphocytes Absolute 1.54 1.00 - 5.00 K/mcL LAB HEMETOLOGY METHOD 02/26/2025 7:17 AM EDT [facility] Monocytes Absolute 0.53 0.20 - 1.00 K/mcL LAB HEMETOLOGY METHOD 02/26/2025 7:17 AM EDT [facility] Eosinophils Absolute 0.00 0.00 - 0.50 K/mcL LAB HEMETOLOGY METHOD 02/26/2025 7:17 AM EDT [facility] Basophils Absolute 0.01 0.00 - 0.20 K/mcL LAB HEMETOLOGY METHOD 02/26/2025 7:17 AM EDT [facility] Immature Granulocytes Absolute 0.03 0.00 - 0.03 K/mcL LAB HEMETOLOGY [facility] Blood Venous blood specimen / Unknown Venipuncture / Unknown 02/26/2025 6:13 AM EDT 02/26/2025 6:49 AM EDT us Alex Boo MD LAB BLOOD ORDERABLES Final Re sult [facility] [address] [place] [address], * (ABNORMAL) C-reactive protein (02/26/2025 6:13 AM EDT) Pathologist [facility] C-Reactive Protein 4.69(H) <=0.50 mg/dL LAB CHEMISTRY METHOD 02/26/2025 8:58 AM EDT [facility] Blood Venous blood specimen / Unknown Venipuncture / Unknown 02/26/2025 6:13 AM EDT 02/26/2025 6:48 AM EDT Marlena ARAGON LAB BLOOD ORDERABLES Dona l Result [facility] [address] [place] [address], [place] [phone] * Magnesium (02/26/2025 6:13 AM EDT) [facility] Magnesium 1.9 1.9 - 2.6 mg/dL LAB CHEMISTRY METHOD 02/26/2025 7:32 AM EDT [facility] Blood Venous blood specimen / Unknown Venipuncture / Unknown 02/26/2025 6:13 AM EDT 02/26/2025 6:48 AM EDT Alex Boo MD LAB BLOOD ORDERABLES Final Re sult Performing Organization Address [facility]/ZIP Co de Phone Number [facility] [address] [place] [address], [place] [phone] * (ABNORMAL) Basic metabolic panel (02/26/2025 6:13 AM EDT) Only the most recent of2 resultswithin the time period is included. [facility] Sodium 139 133 - 145 mmol/L LAB CHEMISTRY METHOD 02/26/2025 7:32 AM EDT [facility] Potassium 4.0 3.5 - 5.5 mmol/L LAB CHEMISTRY METHOD 02/26/2025 7:32 AM EDT [facility] Chloride 107 96 - 110 mmol/L LAB CHEMISTRY METHOD 02/26[facility]2025 7[facility] CO2 27 21 - 32 mmol/L LAB CHEMISTRY METHOD 02/26/2025 7:32 AM [facility] Anion Gap 5 3 - 11 LAB CHEMISTRY METHOD 02/26/2025 7:32 AM [facility] Glucose 108(H) 70 - 100 mg/dL LAB CHEMISTRY METHOD 02/26/2025 7:32 AM [facility] BUN 10 5 - 25 mg/dL LAB CHEMISTRY METHOD 02/26/2025 7:32 AM [facility] Creatinine 0.76 0.70 - 1.30 mg/dL LAB CHEMISTRY METHOD 02/26/2025 7:32 AM [facility] eGFR 117 >=60 mL/min/1. 73m2 LAB CHEMISTRY METHOD 02/26/2025 7:32 AM [facility] Comment:Calculation based on the Chronic Kidney Disease Epidemiology Collaboration (CKD-EPI) equation refit without adjustment for race. BUN/Creatinine Ratio 13.2 LAB CHEMISTRY METHOD 02/26/2025 7:32 AM [facility] Calcium 9.0 8.5 - 10.5 mg/dL LAB CHEMISTRY METHOD 02/26/2025 7:32 AM [facility] Blood Venous blood specimen / Unknown Venipuncture / Unknown 02/26/2025 6:13 AM EDT 02/26/2025 6:48 AM EDT us Alex Boo MD LAB BLOOD ORDERABLES Final Re sult [facility] [address] [place] [address], * CT Pelvis w Contrast (02/25/2025 7:27 [...] by: Triny Jiang MD on 02/25/2025 20:10:48 us Bree ARAGON IMG CT PROCEDURES Final Re sult * (ABNORMAL) Urinalysis with reflex microscopic and culture (02/25/2025 3:26 PM EDT) Only the most recent of2 resultswithin the time period is included. Specific [place] Urine 1.006 1.003 - 1.030 LAB URINALYSIS - AUTOMATED METHOD 02/25/2025 4:29 PM [facility] pH, Urine 6.0 5.0 - 8.0 pH LAB URINALYSIS - AUTOMATED METHOD 02/25/2025 4:29 PM [facility] Leukocytes, Urine Negative Negative LAB URINALYSIS - AUTOMATED METHOD 02/25/2025 4:29 PM [facility] Nitrite, Urine Negative Negative LAB URINALYSIS - AUTOMATED METHOD 02/25/2025 4:29 PM [facility] Protein, Urine Negative <=Trace mg/dL LAB URINALYSIS - AUTOMATED METHOD 02/25/2025 4:29 PM [facility] Glucose, Urine Negative Negative mg/dL LAB URINALYSIS - AUTOMATED METHOD 02/25/2025 4:29 PM [facility] Ketones, Urine Negative Negative mg/dL LAB URINALYSIS - AUTOMATED METHOD 02/25/2025 4:29 PM [facility] Urobilinogen, Urine 1.0 0.2 - 1.0 mg/dL LAB URINALYSIS - AUTOMATED METHOD 02/25/2025 4:29 PM [facility] Bilirubin, Urine Negative Negative LAB URINALYSIS - AUTOMATED METHOD 02/25/2025 4:29 PM [facility] Blood, Urine Trace(A) Negative LAB URINALYSIS - AUTOMATED METHOD 02/25/2025 4:29 PM [facility] RBC, Urine 0.9 0 - 4 /HPF LAB URINALYSIS - AUTOMATED METHOD 02/25/2025 4:29 PM [facility] WBC, Urine 0.7 0 - 4 /HPF LAB URINALYSIS - AUTOMATED METHOD 02/25/2025 4:29 PM [facility] Squamous Epithelial, Urine 1 0 - 60 /LPF LAB URINALYSIS - AUTOMATED METHOD 02/25/2025 4:29 PM EDT [facility] Bacteria, Urine Negative Negative /HPF LAB URINALYSIS - AUTOMATED METHOD 02/25/2025 4:29 PM EDT [facility] Hyaline Casts, Urine 0.0 0 - 3 /LPF LAB URINALYSIS - AUTOMATED METHOD 02/25/2025 4:29 PM EDT [facility] Urine Urine specimen obtained by clean catch procedure / Unknown Non-blood Collection / Unknown 02/25/2025 3:26 PM EDT 02/25/2025 3:38 PM EDT us Alex Boo MD LAB URINE ORDERABLES Final Re sult Performing Organization Address [facility]/ZIP Co de Phone Number [facility] [address] [place] [address], [place] [phone] * Cano urine culture tube (02/25/2025 3:26 PM EDT) Only the most recent of2 resultswithin the time period is included. Extra Tube Hold for add-ons. 02/26/2025 4:01 PM EDT [facility] Comment:Auto resulted. Urine Urine specimen obtained by clean catch procedure / Unknown Non-blood Collection / Unknown 02/25/2025 3:26 PM EDT 02/25/2025 3:38 PM EDT us Alex Boo MD LAB URINE ORDERABLES Final Re sult Performing Organization Address [facility]/ZIP Co de Phone Number [facility] [address] [place] [address], [place] [phone] * (ABNORMAL) Comprehensive metabolic panel (02/25/2025 3:20 PM EDT) Sodium 136 133 - 145 mmol/L LAB CHEMISTRY METHOD 02/25/2025 4:12 PM EDT [facility] Potassium 4.1 3.5 - 5.5 mmol/L LAB CHEMISTRY METHOD 02/25/2025 4:12 PM [facility] Chloride 105 96 - 110 mmol/L LAB CHEMISTRY METHOD 02/25/2025 4:12 PM [facility] CO2 26 21 - 32 mmol/L LAB CHEMISTRY METHOD 02/25/2025 4:12 PM [facility] Anion Gap 5 3 - 11 LAB CHEMISTRY METHOD 02/25/2025 4:12 PM [facility] Glucose 133(H) 70 - 100 mg/dL LAB CHEMISTRY METHOD 02/25/2025 4:12 PM [facility] BUN 10 5 - 25 mg/dL LAB CHEMISTRY METHOD 02/25/2025 4:12 PM [facility] Creatinine 0.92 0.70 - 1.30 mg/dL LAB CHEMISTRY METHOD 02/25/2025 4:12 PM [facility] eGFR 108 >=60 mL/min/1. 73m2 LAB CHEMISTRY METHOD 02/25/2025 4:12 PM [facility] Comment:Calculation based on the Chronic Kidney Disease Epidemiology Collaboration (CKD-EPI) equation refit without adjustment for race. BUN/Creatinine Ratio 10.9 LAB CHEMISTRY METHOD 02/25/2025 4:12 PM [facility] Calcium 9.5 8.5 - 10.5 mg/dL LAB CHEMISTRY METHOD 02/25/2025 4:12 PM [facility] AST (SGOT) 15 10 - 42 unit/L LAB CHEMISTRY METHOD 02/25/2025 4:12 PM [facility] ALT (SGPT) 36 10 - 60 unit/L LAB CHEMISTRY METHOD 02/25/2025 4:12 PM [facility] Alkaline Phosphatase 104 42 - 121 unit/L LAB CHEMISTRY METHOD 02/25/2025 4:12 PM [facility] Total Protein 7.2 6.0 - 8.0 g/dL LAB CHEMISTRY METHOD 02/25/2025 4:12 PM EDT [facility] Albumin 4.0 3.2 - 5.0 g/dL LAB CHEMISTRY METHOD 02/25/2025 4:12 PM EDT [facility] Total Bilirubin 0.8 0.0 - 1.4 mg/dL LAB CHEMISTRY METHOD 02/25/2025 4:12 PM EDT [facility] Blood Venous blood specimen / Unknown Venipuncture / Unknown 02/25/2025 3:20 PM EDT 02/25/2025 3:36 PM EDT us Alex Boo MD LAB BLOOD ORDERABLES Final Re sult [facility] [address] [place] [address], [place] [phone] * US Scrotum and Contents (02/25/2025 3:13 PM EDT) Only the most recent of2 resultswithin the time period is included. Anatomical Region Laterality Modality Body Ultrasound 02/25/2025 3:40 PM EDT Impressions 02/25/2025 3:41 PM EDT NO EVIDENCE OF TORSION. LEFT EPIDIDYMOORCHITIS WITH MODERATE LEFT HYDROCELE -------- FINAL REPORT -------- Dictated By: KULWINDER PATEL Dictated Date: 02/25/2025 15:40 ET Assigned Physician: KULWINDER PATEL Reviewed and Electronically Signed By: KULWINDER PATEL Signed Date: 02/25/2025 15:41 ET Workstation ID: [id number] Transcribed By: Self Edit Transcribed Date: 02/25/2025 [...] torsion. Increased vascularity at the left testicle and epididymis. Moderate left hydrocele. Small right hydrocele. No intratesticular mass. Procedure Note Kulwinder Patel MD - 02/25/2025 PROCEDURE: US SCROTUM AND [...] -------- FINAL REPORT -------- Dictated By: KULWINDER PATEL Dictated Date: 02/25/2025 15:40 ET Assigned Physician: KULWINDER PATEL Reviewed and Electronically Signed By: KULWINDER PATEL Signed Date: 02/25/2025 15:41 ET Workstation ID: [id number] Transcribed By: Self Edit Transcribed Date: 02/25/2025 15:40 ET Alex Boo MD IM US PROCEDURES Final Resul t * POCT Glucose, blood (02/24/2025 3:40 AM EDT) Glucose POCT 98 70 - 100 mg/dL 02/24/2025 3:41 AM EDT [facility] Blood Capillary blood specimen / Unknown 02/24/2025 3:40 AM EDT 02/24/2025 3:42 AM EDT Generic Provider Poct LAB POINT OF CARE TEST DOCKED DEVICE UNSOLICITED RESULTS Final Result [facility] [address] [place] [address], [place] [phone] * Culture urine (02/23/2025 10:46 PM EDT) Pathologist [facility] Culture, Urine 50,000-99,000 CFU/mL Mixed urogenital cait, no uropathogens present. Suggest repeat specimen if clinically indicated. 02/25/2025 9:47 AM EDT [facility] Urine Urine specimen obtained by clean catch procedure / Unknown Non-blood Collection / Unknown 02/23/2025 10:46 PM EDT 02/23/2025 11:22 PM EDT Macario Quan MD LAB MICROBIOLOGY - GENERAL O RDERABLES Final Result [facility] [address] [place] [address], * HIV Screening (11/12/2022) Pathologist [facility] HIV Screening abstracted Historical Provider HEALTH MAINTENANCE Final Result * Hepatitis C Screening (11/12/2022) Pathologist [facility] Hepatitis C Screening abstracted Historical Provider HEALTH MAINTENANCE Final Result * (ABNORMAL) Lipid panel (04/27/2013) [facility] LDL/HDL Ratio 4 0 - 4 Triglycerides 177(A) 0 - 150 mg/dL Cholesterol 171 0 - 200 mg/dL HDL 39(A) >=40 mg/dL LDL Cholesterol 97 0 - 100 mg/dL Blood Venous blood specimen / Unknown Historical Provider LAB BLOOD ORDERABLES Dona l Result from Last 3 Months or Most Recently Relevant to Health Maintenance Insurance [facility] PL[facility] Advance Directives * Full Code - Default (Latest Code Status on File) Date Activated Date Inactivated Comments 02/25/2025 7:26 PM 02/26/2025 6:23 PM This is order is used when code status has not been discussed with the patient, or code status is otherwise unknown/unconfirmed To update the patient's code status, place a code status order. Do not modify or discontinue any currently active code status orders. Care Teams Power Builder Developer Relationship Specialty Start Date End Date Kira Blandon MD [address] [place] [id number] PCP - General 08/26/23
== END 2025-03-29 14:29 | disposition home or self-care (01) ==
LOC: HO.HOP 13:57
PROVIDERS: PCP Nurse Practitioner Family; Visit Provider Clinical Nurse Specialist Psychiatric/Mental Health, Adult
DX: F43.10 Post-traumatic stress disorder, unspecified (principal); F33.1 Major depressive disorder, recurrent, moderate; F41.1 Generalized anxiety disorder
CPT/HCPCS: 99213

== ENCOUNTER → 2025-03-29 13:57 | Outpatient (BNVA) | payer OTHER, SELFPAY | PROVIDERS: PCP Nurse Practitioner Family; Visit Provider Clinical Nurse Specialist Psychiatric/Mental Health, Adult | DX: F33.1 Major depressive disorder, recurrent, moderate (principal); F33.9 Major depressive disorder, recurrent, unspecified; F41.1 Generalized anxiety disorder | CPT/HCPCS: 99212 ==

== ENCOUNTER 2025-03-30 08:24 | Outpatient (AMB) | payer OTHER, SELFPAY ==
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
[2025-03-30 08:35] VITALS: BP 134/62; PULSE 71; RESP 16; TEMP 37; O2SAT 96
--- OUTSIDE RECORDS SUMMARY | 2025-03-30 08:37 | XMS_ITS | Clinical Summary ---
Author Organization [address] [place] [address] [place] [phone] Phone Care Team Providers Care Fagot Heater Name Role Phone Kira Blandon MD Primary [...] - 02/26/2025 4:18 PM EDT Hospital Encounter [facility] [address] [place] [id number] Alex Boo MD Jones, Christopher, MD Zipagan, James T, MD Epididymoorchitis (Primary Dx) Discharge Disposition: Home or Self Care 02/24/2025 4:44 AM EDT - 02/24/2025 5:59 AM EDT Emergency [facility] Emergency [address] [place] [id number] Johan Smith MD Epididymoorchitis (Primary Dx) Discharge Disposition: Home or Self Care from Last 3 Months Immunizations Name Administration Dates Next Due Hepatitis B (Nzhohsv-N-Tpyvg , Recombivax HB-Adult) 19yo and older 05/12/2013 [...] History Surgery Date Site/Laterality Comments COLONOSCOPY 06/29/09 [facility] PROCEDURE: HISTORICAL COLONOSCOPY; COMMENT: normal ESOPHAGOGASTRODUODENOSCOPY Lauren PROCEDURE: [place] ESOPHAGOGASTRODUODENOSCOPY TRANSORAL DIAGNOSTIC; COMMENT: normal Medical History [...] molecular study (02/26/2025 10:08 AM EDT) Pathologist [facility] Neisseria gonorrhoeae PCR Negative Negative LAB MOLECULAR DIAGNOSTICS METHOD 02/26/2025 2:14 PM EDT [facility] Chlamydia trachomatis PCR Negative Negative LAB MOLECULAR DIAGNOSTICS METHOD 02/26/2025 2:14 PM EDT [facility] Urine Urine specimen from urethra / Unknown Non-blood Collection / Unknown 02/26/2025 10:08 AM EDT 02/26/2025 11:11 AM EDT Marlena ARAGON LAB MICROBIOLOGY - GENERA L ORDERABLES Final Result [facility] [address] [place] [address], * (ABNORMAL) CBC auto differential (02/26/2025 6:13 AM EDT) Only the most recent of3 resultswithin the time period is included. [facility] WBC 6.4 4.8 - 10.8 K/mcL LAB HEMETOLOGY METHOD 02/26/2025 7:17 AM EDT [facility] RBC 4.70 4.50 - 5.50 M/mcL LAB HEMETOLOGY METHOD 02/26/2025 7:17 AM EDT [facility] Hemoglobin 12.8(L) 13.5 - 17.5 g/dL LAB HEMETOLOGY METHOD 02/26/2025 7:17 AM EDT [facility] Hematocrit 38.4(L) 42.0 - 54.0 % LAB HEMETOLOGY METHOD 02/26/2025 7:17 AM [facility] MCV 82.1 79.0 - 98.0 FL LAB HEMETOLOGY METHOD 02/26/2025 7:17 AM [facility] MCH 27.4 27.0 - 32.0 pcg LAB HEMETOLOGY METHOD 02/26/2025 7:17 AM [facility] MCHC 33.3 32.0 - 37.0 g/dL LAB HEMETOLOGY METHOD 02/26/2025 7:17 AM [facility] RDW 13.5 11.0 - 15.0 % LAB HEMETOLOGY METHOD 02/26/2025 7:17 AM [facility] Platelets 220 130 - 400 K/mcL LAB HEMETOLOGY METHOD 02/26/2025 7:17 AM [facility] MPV 10.7 7.0 - 11.0 FL LAB HEMETOLOGY METHOD 02/26/2025 7:17 AM [facility] NRBC 0.0 <1.0 % LAB HEMETOLOGY METHOD 02/26/2025 7:17 AM [facility] NRBC Absolute 0.00 <0.10 K/mcL LAB HEMETOLOGY METHOD 02/26/2025 7:17 AM [facility] Neutrophils Relative 66.9 % LAB HEMETOLOGY METHOD 02/26/2025 7:17 AM [facility] Lymphocytes Relative 24.1 % LAB HEMETOLOGY METHOD 02/26/2025 7:17 AM [facility] Monocytes Relative 8.3 % LAB HEMETOLOGY METHOD 02/26/2025 7:17 AM [facility] Eosinophils Relative 0.0 % LAB HEMETOLOGY METHOD 02/26/2025 7:17 AM EDT [facility] Basophils Relative 0.2 % LAB HEMETOLOGY METHOD 02/26/2025 7:17 AM EDT [facility] Immature Granulocytes Relative 0.5 % LAB HEMETOLOGY METHOD 02/26/2025 7:17 AM EDT [facility] Neutrophils Absolute 4.28 1.50 - 7.00 K/mcL LAB HEMETOLOGY METHOD 02/26/2025 7:17 AM EDT [facility] Lymphocytes Absolute 1.54 1.00 - 5.00 K/mcL LAB HEMETOLOGY METHOD 02/26/2025 7:17 AM EDT [facility] Monocytes Absolute 0.53 0.20 - 1.00 K/mcL LAB HEMETOLOGY METHOD 02/26/2025 7:17 AM EDT [facility] Eosinophils Absolute 0.00 0.00 - 0.50 K/mcL LAB HEMETOLOGY METHOD 02/26/2025 7:17 AM EDT [facility] Basophils Absolute 0.01 0.00 - 0.20 K/mcL LAB HEMETOLOGY METHOD 02/26/2025 7:17 AM EDT [facility] Immature Granulocytes Absolute 0.03 0.00 - 0.03 K/mcL LAB HEMETOLOGY METHOD [facility] Blood Venous blood specimen / Unknown Venipuncture / Unknown 02/26/2025 6:13 AM EDT 02/26/2025 6:49 AM EDT us Alex Boo MD LAB BLOOD ORDERABLES Final Re sult [facility] [address] [place] [address], * (ABNORMAL) C-reactive protein (02/26/2025 6:13 AM EDT) Pathologist [facility] C-Reactive Protein 4.69(H) <=0.50 mg/dL LAB CHEMISTRY METHOD 02/26/2025 8:58 AM EDT [facility] Blood Venous blood specimen / Unknown Venipuncture / Unknown 02/26/2025 6:13 AM EDT 02/26/2025 6:48 AM EDT Marlena ARAGON LAB BLOOD ORDERABLES Dona l Result [facility] [address] [place] [address], [place] [phone] * Magnesium (02/26/2025 6:13 AM EDT) [facility] Magnesium 1.9 1.9 - 2.6 mg/dL LAB CHEMISTRY METHOD 02/26/2025 7:32 AM EDT [facility] Blood Venous blood specimen / Unknown Venipuncture / Unknown 02/26/2025 6:13 AM EDT 02/26/2025 6:48 AM EDT Alex Boo MD LAB BLOOD ORDERABLES Final Re sult Performing Organization Address [facility]/ZIP Co de Phone Number [facility] [address] [place] [address], [place] [phone] * (ABNORMAL) Basic metabolic panel (02/26/2025 6:13 AM EDT) Only the most recent of2 resultswithin the time period is included. [facility] Sodium 139 133 - 145 mmol/L LAB CHEMISTRY METHOD 02/26/2025 7:32 AM EDT [facility] Potassium 4.0 3.5 - 5.5 mmol/L LAB CHEMISTRY METHOD 02/26/2025 7:32 AM EDT [facility] Chloride 107 96 - 110 mmol/L LAB CHEMISTRY METHOD 02/26/2025 7:32 [facility] CO2 27 21 - 32 mmol/L LAB CHEMISTRY METHOD 02/26/2025 7:32 AM [facility] Anion Gap 5 3 - 11 LAB CHEMISTRY METHOD 02/26/2025 7:32 AM [facility] Glucose 108(H) 70 - 100 mg/dL LAB CHEMISTRY METHOD 02/26/2025 7:32 AM [facility] BUN 10 5 - 25 mg/dL LAB CHEMISTRY METHOD 02/26/2025 7:32 AM [facility] Creatinine 0.76 0.70 - 1.30 mg/dL LAB CHEMISTRY METHOD 02/26/2025 7:32 AM [facility] eGFR 117 >=60 mL/min/1. 73m2 LAB CHEMISTRY METHOD 02/26/2025 7:32 AM [facility] Comment:Calculation based on the Chronic Kidney Disease Epidemiology Collaboration (CKD-EPI) equation refit without adjustment for race. BUN/Creatinine Ratio 13.2 LAB CHEMISTRY METHOD 02/26/2025 7:32 AM [facility] Calcium 9.0 8.5 - 10.5 mg/dL LAB CHEMISTRY METHOD 02/26/2025 7:32 AM [facility] Blood Venous blood specimen / Unknown Venipuncture / Unknown 02/26/2025 6:13 AM EDT 02/26/2025 6:48 AM EDT us Alex Boo MD LAB BLOOD ORDERABLES Final Re sult [facility] [address] [place] [address], * CT Pelvis w Contrast (02/25/2025 7:27 [...] resultswithin the time period is included. Specific [place] Urine 1.006 1.003 - 1.030 LAB URINALYSIS - AUTOMATED METHOD 02/25/2025 4:29 PM [facility] pH, Urine 6.0 5.0 - 8.0 pH LAB URINALYSIS - AUTOMATED METHOD 02/25/2025 4:29 PM [facility] Leukocytes, Urine Negative Negative LAB URINALYSIS - AUTOMATED METHOD 02/25/2025 4:29 PM [facility] Nitrite, Urine Negative Negative LAB URINALYSIS - AUTOMATED METHOD 02/25/2025 4:29 PM [facility] Protein, Urine Negative <=Trace mg/dL LAB URINALYSIS - AUTOMATED METHOD 02/25/2025 4:29 PM [facility] Glucose, Urine Negative Negative mg/dL LAB URINALYSIS - AUTOMATED METHOD 02/25/2025 4:29 PM [facility] Ketones, Urine Negative Negative mg/dL LAB URINALYSIS - AUTOMATED METHOD 02/25/2025 4:29 PM [facility] Urobilinogen, Urine 1.0 0.2 - 1.0 mg/dL LAB URINALYSIS - AUTOMATED METHOD 02/25/2025 4:29 PM [facility] Bilirubin, Urine Negative Negative LAB URINALYSIS - AUTOMATED METHOD 02/25/2025 4:29 PM [facility] Blood, Urine Trace(A) Negative LAB URINALYSIS - AUTOMATED METHOD 02/25/2025 4:29 PM [facility] RBC, Urine 0.9 0 - 4 /HPF LAB URINALYSIS - AUTOMATED METHOD 02/25/2025 4:29 PM [facility] WBC, Urine 0.7 0 - 4 /HPF LAB URINALYSIS - AUTOMATED METHOD 02/25/2025 4:29 PM [facility] Squamous Epithelial, Urine 1 0 - 60 /LPF LAB URINALYSIS - AUTOMATED METHOD 02/25/2025 4:29 PM EDT [facility] Bacteria, Urine Negative Negative /HPF LAB URINALYSIS - AUTOMATED METHOD 02/25/2025 4:29 PM EDT [facility] Hyaline Casts, Urine 0.0 0 - 3 /LPF LAB URINALYSIS - AUTOMATED METHOD 02/25/2025 4:29 PM EDT [facility] Urine Urine specimen obtained by clean catch procedure / Unknown Non-blood Collection / Unknown 02/25/2025 3:26 PM EDT 02/25/2025 3:38 PM EDT us Alex Boo MD LAB URINE ORDERABLES Final Re sult Performing Organization Address [facility]/ZIP Co de Phone Number [facility] [address] [place] [address], [place] [phone] * Cano urine culture tube (02/25/2025 3:26 PM EDT) Only the most recent of2 resultswithin the time period is included. Extra Tube Hold for add-ons. 02/26/2025 4:01 PM EDT [facility] Comment:Auto resulted. Urine Urine specimen obtained by clean catch procedure / Unknown Non-blood Collection / Unknown 02/25/2025 3:26 PM EDT 02/25/2025 3:38 PM EDT us Alex Boo MD LAB URINE ORDERABLES Final Re sult Performing Organization Address [facility]/ZIP Co de Phone Number [facility] [address] [place] [address], [place] [phone] * (ABNORMAL) Comprehensive metabolic panel (02/25/2025 3:20 PM EDT) Sodium 136 133 - 145 mmol/L LAB CHEMISTRY METHOD 02/25/2025 4:12 PM EDT [facility] Potassium 4.1 3.5 - 5.5 mmol/L LAB CHEMISTRY METHOD 02/25/2025 4:12 PM [facility] Chloride 105 96 - 110 mmol/L LAB CHEMISTRY METHOD 02/25/2025 4:12 PM [facility] CO2 26 21 - 32 mmol/L LAB CHEMISTRY METHOD 02/25/2025 4:12 PM [facility] Anion Gap 5 3 - 11 LAB CHEMISTRY METHOD 02/25/2025 4:12 PM [facility] Glucose 133(H) 70 - 100 mg/dL LAB CHEMISTRY METHOD 02/25/2025 4:12 PM [facility] BUN 10 5 - 25 mg/dL LAB CHEMISTRY METHOD 02/25/2025 4:12 PM [facility] Creatinine 0.92 0.70 - 1.30 mg/dL LAB CHEMISTRY METHOD 02/25/2025 4:12 PM [facility] eGFR 108 >=60 mL/min/1. 73m2 LAB CHEMISTRY METHOD 02/25/2025 4:12 PM [facility] Comment:Calculation based on the Chronic Kidney Disease Epidemiology Collaboration (CKD-EPI) equation refit without adjustment for race. BUN/Creatinine Ratio 10.9 LAB CHEMISTRY METHOD 02/25/2025 4:12 PM [facility] Calcium 9.5 8.5 - 10.5 mg/dL LAB CHEMISTRY METHOD 02/25/2025 4:12 PM [facility] AST (SGOT) 15 10 - 42 unit/L LAB CHEMISTRY METHOD 02/25/2025 4:12 PM [facility] ALT (SGPT) 36 10 - 60 unit/L LAB CHEMISTRY METHOD 02/25/2025 4:12 PM [facility] Alkaline Phosphatase 104 42 - 121 unit/L LAB CHEMISTRY METHOD 02/25/2025 4:12 PM [facility] Total Protein 7.2 6.0 - 8.0 g/dL LAB CHEMISTRY METHOD 02/25/2025 4:12 PM EDT [facility] Albumin 4.0 3.2 - 5.0 g/dL LAB CHEMISTRY METHOD 02/25/2025 4:12 PM EDT [facility] Total Bilirubin 0.8 0.0 - 1.4 mg/dL LAB CHEMISTRY METHOD 02/25/2025 4:12 PM EDT [facility] Blood Venous blood specimen / Unknown Venipuncture / Unknown 02/25/2025 3:20 PM EDT 02/25/2025 3:36 PM EDT us Alex Boo MD LAB BLOOD ORDERABLES Final Re sult [facility] [address] [place] [address], [place] [phone] * [place] Scrotum and Contents (02/25/2025 3:13 [...] Signed Date: 02/25/2025 15:41 ET Workstation ID: [id number] Transcribed By: Self Edit Transcribed Date: 02/25/2025 [...] Signed Date: 02/25/2025 15:41 ET Workstation ID: [id number] Transcribed By: Self Edit Transcribed Date: 02/25/2025 15:40 ET Alex Boo MD IM US PROCEDURES Final Resul t * POCT Glucose, blood (02/24/2025 3:40 AM EDT) Glucose POCT 98 70 - 100 mg/dL 02/24/2025 3:41 AM EDT [facility] Blood Capillary blood specimen / Unknown 02/24/2025 3:40 AM EDT 02/24/2025 3:42 AM EDT Generic Provider Poct LAB POINT OF CARE TEST DOCKED DEVICE UNSOLICITED RESULTS Final Result [facility] [address] [place] [address], [place] [phone] * Culture urine (02/23/2025 10:46 PM EDT) Pathologist [facility] Culture, Urine 50,000-99,000 CFU/mL Mixed urogenital cait, no uropathogens present. Suggest repeat specimen if clinically indicated. 02/25/2025 9:47 AM EDT [facility] Urine Urine specimen obtained by clean catch procedure / Unknown Non-blood Collection / Unknown 02/23/2025 10:46 PM EDT 02/23/2025 11:22 PM EDT Macario Quan MD LAB MICROBIOLOGY - GENERAL O RDERABLES Final Result [facility] [address] [place] [address], * HIV Screening (11/12/2022) Pathologist [facility] HIV Screening abstracted Historical Provider HEALTH MAINTENANCE Final Result * Hepatitis C Screening (11/12/2022) Pathologist [facility] Hepatitis C Screening abstracted Historical Provider HEALTH MAINTENANCE Final Result * (ABNORMAL) Lipid panel (04/27/2013) [facility] LDL/HDL Ratio 4 0 - 4 Triglycerides 177(A) 0 - 150 mg/dL Cholesterol 171 0 - 200 mg/dL HDL 39(A) >=40 mg/dL LDL Cholesterol 97 0 - 100 mg/dL Blood Venous blood specimen / Unknown Historical Provider LAB BLOOD ORDERABLES Dona l Result from Last 3 Months or Most Recently Relevant to Health Maintenance Insurance [facility] Advance Directives * Full Code - [...] currently active code status orders. Care Teams Fagot Heater Relationship Specialty Start Date End Date Kira Blandon MD [address] [place] [id number] PCP - General 08/26/23
== END 2025-03-30 09:11 | disposition home or self-care (01) ==
LOC: HO.HMCFM 08:25
PROVIDERS: PCP Nurse Practitioner Family; Visit Provider Nurse Practitioner Family
DX: N45.1 Epididymitis (principal)

== ENCOUNTER → 2025-03-30 08:24 | Outpatient (BNVA) | payer OTHER, SELFPAY | PROVIDERS: PCP Nurse Practitioner Family; Visit Provider Nurse Practitioner Family | DX: N45.1 Epididymitis (principal); K21.9 Gastro-esophageal reflux disease without esophagitis; F90.9 Attention-deficit hyperactivity disorder, unspecified type | CPT/HCPCS: 99212 ==

== ENCOUNTER 2025-04-26 13:44 | Outpatient (AMB) | payer OTHER, SELFPAY ==
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
--- OUTSIDE RECORDS SUMMARY | 2025-04-26 14:12 | XMS_ITS | Encounter Summary ---
Author Organization [facility] Address [address] [place] [phone] Phone Care Team Providers Care Buyer Tobacco Head Name Role Phone Isamar Plummer MD Primary Care Provider Brigitte Reyes NP Primary Care Provider + Encounter Details Date Type Department Care Team (Late st Contact Info) Description 01/25/2024 Procedure Pass [facility] [address] [place] [address] Social History Tobacco Use Types Packs/Day Years Used Date Smoking Tobacco: Never Smokeless Tobacco: Never Alcohol Use Standard Drinks/Week Comments Never 0 (1 standard drink = 0.6 oz pur e alcohol) Education Answer Date Recorded Are you interested in more education? Not on elena e 09/08/2023 Are you concerned about learning? Not on file 09/08/2023 No 09/08/2023 No 09/08/2023 Digital Access Answer Date Recorded No 09/08/2023 No 09/08/2023 Reliable internet access at home? Not on file 09/08/2023 Device with a working camera? Not on file Sex and Gender Information Value Date Recorded Sex Assigned at Male 06/28/2024 12:57 PM EDT Legal Sex Male 10:11 AM EST Gender Identity Male 06/28/2024 12:57 PM EDT Sexual Orientation Choose not to disclose 2023 12:57 PM EDT documented as of this encounter Plan of Treatment Not on file documented as of this encounter Visit Diagnoses Not on filedocumented in this encounter Care Teams Buyer Tobacco Head Relationship Specialty Start Date End Date Isamar Plummer MD PCP - General Family Medicine 09/01/23 10/12/24 Brigitte Reyes NP [address] [place] [id number] PCP - General Nurse Practitioner 10/13/24 documented as of this encounter Additional Source Comments The information contained in this document represents components of the legal health record. It is not the complete legal health record.[facility]
--- OUTSIDE RECORDS SUMMARY | 2025-04-26 14:12 | XMS_ITS | Clinical Summary ---
Author Organization [address] [place] [address] [place] [id number] Phone Care Team Providers Care Tunnel Worker Name Role Phone Kira Blandon MD [...] eyes 4 (four) times a day. Active Active Problems Problem Noted Date Diagnosed Date Epididymoorchitis 02/25/2025 Encounters Date Type Department Care Team Description 02/25/2025 5:16 PM EDT - 02/26/2025 4:18 PM EDT Hospital Encounter [facility] Urology [address] [place] [phone] Alex Boo MD Jones, Christopher, MD Zipagan, James T, MD Epididymoorchitis (Primary Dx) Discharge Disposition: Home or Self Care 02/24/2025 4:44 AM EDT - 02/24/2025 5:59 AM EDT Emergency [facility] Emergency [address] [place] [id number] Johan Smith MD Epididymoorchitis (Primary Dx) Discharge Disposition: Home or Self Care from Last 3 Months Immunizations Name Administration Dates Next Due Hepatitis B ([id number] , Recombivax HB-Adult) 19yo and older 05/12/2013 [...] History Surgery Date Site/Laterality Comments COLONOSCOPY 06/29/[address] [facility] PROCEDURE: HISTORICAL COLONOSCOPY; COMMENT: normal ESOPHAGOGASTRODUODENOSCOPY [facility] PROCEDURE: SC ESOPHAGOGASTRODUODENOSCOPY TRANSORAL DIAGNOSTIC; COMMENT: normal Medical History [...] 05/12/2013 Cholesterol Screening (Lipid Panel) 08/24/2022 04/27/2013 Social Influencers of Health Screening 08/24/2022 COVID-19 Vaccine ( season) 2024 10/04/2021, 02/16/2021, 01/26/2021 Depression Screening 09/21/2024 Influenza Vaccine (#1) 2025 , 08/07/2023, 10/04/2021, [...] gonorrhoeae molecular study (02/26/2025 10:08 AM EDT) [facility] Neisseria gonorrhoeae PCR Negative Negative LAB MOLECULAR DIAGNOSTICS METHOD 02/26/2025 2:14 PM EDT [facility] Chlamydia trachomatis PCR Negative Negative LAB MOLECULAR DIAGNOSTICS METHOD 02/26/2025 2:14 PM EDT [facility] Urine Urine specimen from urethra / Unknown Non-blood Collection / Unknown 02/26/2025 10:08 AM EDT 02/26/2025 11:11 AM EDT Marlena ARAGON LAB MICROBIOLOGY - GENERA L ORDERABLES Final Result [facility] [address] [place] [address], [place] [phone] * (ABNORMAL) CBC auto differential (02/26/2025 6:13 AM EDT) Only the most recent of3 resultswithin the time period is included. [facility] WBC 6.4 4.8 - 10.8 K/mcL LAB HEMETOLOGY METHOD 02/26/2025 7:17 AM EDT [facility] RBC 4.70 4.50 - 5.50 M/mcL LAB HEMETOLOGY METHOD 02/26/2025 7:17 AM EDT [facility] Hemoglobin 12.8(L) 13.5 - 17.5 g/dL LAB HEMETOLOGY METHOD 02/26/2025 7:17 AM EDT [facility] Hematocrit 38.4(L) 42.0 - 54.0 % LAB HEMETOLOGY METHOD 02/26/2025 7:17 AM EDT [facility] MCV 82.1 79.0 - 98.0 FL LAB HEMETOLOGY METHOD 02/26/2025 7:17 AM [facility] MCH 27.4 27.0 - 32.0 pcg LAB HEMETOLOGY METHOD 02/26/2025 7:17 AM [facility] MCHC 33.3 32.0 - 37.0 g/dL LAB HEMETOLOGY METHOD 02/26/2025 7:17 AM [facility] RDW 13.5 11.0 - 15.0 % LAB HEMETOLOGY METHOD 02/26/2025 7:17 AM [facility] Platelets 220 130 - 400 K/mcL LAB HEMETOLOGY METHOD 02/26/2025 7:17 AM [facility] MPV 10.7 7.0 - 11.0 FL LAB HEMETOLOGY METHOD 02/26/2025 7:17 AM [facility] NRBC 0.0 <1.0 % LAB HEMETOLOGY METHOD 02/26/2025 7:17 AM [facility] NRBC Absolute 0.00 <0.10 K/mcL LAB HEMETOLOGY METHOD 02/26/2025 7:17 AM [facility] Neutrophils Relative 66.9 % LAB HEMETOLOGY METHOD 02/26/2025 7:17 AM [facility] Lymphocytes Relative 24.1 % LAB HEMETOLOGY METHOD 02/26/2025 7:17 AM [facility] Monocytes Relative 8.3 % LAB HEMETOLOGY METHOD 02/26/2025 7:17 AM [facility] Eosinophils Relative 0.0 % LAB HEMETOLOGY METHOD 02/26/2025 7:17 AM [facility] Basophils Relative 0.2 % LAB HEMETOLOGY METHOD 02/26/2025 7:17 AM [facility] Immature Granulocytes Relative 0.5 % LAB HEMETOLOGY METHOD 02/26/2025 7:17 AM EDT [facility] Neutrophils Absolute 4.28 1.50 - 7.00 K/[facility] LAB HEMETOLOGY METHOD 02/26/2025 7:17 AM EDT [facility] Lymphocytes Absolute 1.54 1.00 - 5.00 K/mcL LAB HEMETOLOGY METHOD 02/26/2025 7:17 AM EDT [facility] Monocytes Absolute 0.53 0.20 - 1.00 K/mcL LAB HEMETOLOGY METHOD 02/26/2025 7:17 AM EDT [facility] Eosinophils Absolute 0.00 0.00 - 0.50 K/mcL LAB HEMETOLOGY METHOD 02/26/2025 7:17 AM EDT [facility] Basophils Absolute 0.01 0.00 - 0.20 K/mcL LAB HEMETOLOGY METHOD 02/26/2025 7:17 AM EDT [facility] Immature Granulocytes Absolute 0.03 0.00 - 0.03 K/mcL LAB HEMETOLOGY METHOD 02/26/2025 7:17 AM EDT [facility] Blood Venous blood specimen / Unknown Venipuncture / Unknown 02/26/2025 6:13 AM EDT 02/26/2025 6:49 AM EDT us Alex Boo MD LAB BLOOD ORDERABLES Final Re sult [facility] [address] [place] [address], * (ABNORMAL) C-reactive protein (02/26/2025 6:13 AM EDT) C-Reactive Protein 4.69(H) <=0.50 mg/dL LAB CHEMISTRY METHOD 02/26/2025 8:58 AM EDT [facility] Blood Venous blood specimen / Unknown Venipuncture / Unknown 02/26/2025 6:13 AM EDT 02/26/2025 6:48 AM EDT Marlena ARAGON LAB BLOOD ORDERABLES Dona l Result Performing Organization Address [facility]/ZIP Co de Phone Number [facility] [address] [place] [address], [place] [phone] * Magnesium (02/26/2025 6:13 AM EDT) Magnesium 1.9 1.9 - 2.6 mg/dL LAB CHEMISTRY METHOD 02/26/2025 7:32 AM EDT [facility] Blood Venous blood specimen / Unknown Venipuncture / Unknown 02/26/2025 6:13 AM EDT 02/26/2025 6:48 AM EDT Alex Boo MD LAB BLOOD ORDERABLES Final Re sult Performing Organization Address [facility]/ZIP Co de Phone Number [facility] [address] [place] [address], * (ABNORMAL) Basic metabolic panel (02/26/2025 6:13 AM EDT) Only the most recent of2 resultswithin the time period is included. Sodium 139 133 - 145 mmol/L LAB CHEMISTRY METHOD 02/26/2025 7:32 AM EDT [facility] Potassium 4.0 3.5 - 5.5 mmol/L LAB CHEMISTRY METHOD 02/26/2025 7:32 AM EDT [facility] Chloride 107 96 - 110 mmol/L LAB CHEMISTRY METHOD 02/26/2025 7:32 AM EDT [facility] CO2 27 21 - 32 mmol/L LAB CHEMISTRY METHOD 02/26/2025 7:32 AM EDT [facility] Anion Gap 5 3 - 11 LAB CHEMISTRY METHOD 02/26/2025 7:32 AM EDT [facility] Glucose 108(H) 70 - 100 mg/dL LAB CHEMISTRY METHOD 02/26/2025 7:32 AM EDT [facility] BUN 10 5 - 25 mg/dL LAB CHEMISTRY METHOD 02/26/2025 7:32 AM EDT [facility] Creatinine 0.76 0.70 - 1.30 mg/dL LAB CHEMISTRY METHOD 02/26/2025 7:32 AM EDT [facility] eGFR 117 >=60 mL/min/1. 73m2 LAB CHEMISTRY METHOD 02/26/2025 7:32 AM EDT [facility] Comment:Calculation based on the Chronic Kidney Disease Epidemiology Collaboration (CKD-EPI) equation refit without adjustment for race. BUN/Creatinine Ratio 13.2 LAB CHEMISTRY METHOD 02/26/2025 7:[facility] Calcium 9.0 8.5 - 10.5 mg/dL LAB CHEMISTRY METHOD 02/26/2025 7:32 AM EDT [facility] Blood Venous blood specimen / Unknown Venipuncture / Unknown 02/26/2025 6:13 AM EDT 02/26/2025 6:48 AM EDT us Alex Boo MD LAB BLOOD ORDERABLES Final Re sult [facility] [address] [place] [address], * CT Pelvis w Contrast (02/25/2025 7:27 [...] resultswithin the time period is included. Specific [place] Urine 1.006 1.003 - 1.030 LAB URINALYSIS - AUTOMATED METHOD 02/25/2025 4:29 PM EDT [facility] pH, Urine 6.0 5.0 - 8.0 pH LAB URINALYSIS - AUTOMATED METHOD 02/25/2025 4:29 PM [facility] Leukocytes, Urine Negative Negative LAB URINALYSIS - AUTOMATED METHOD 02/25/2025 4:29 PM [facility] Nitrite, Urine Negative Negative LAB URINALYSIS - AUTOMATED METHOD 02/25/2025 4:29 PM [facility] Protein, Urine Negative <=Trace mg/dL LAB URINALYSIS - AUTOMATED METHOD 02/25/2025 4:29 PM [facility] Glucose, Urine Negative Negative mg/dL LAB URINALYSIS - AUTOMATED METHOD 02/25/2025 4:29 PM [facility] Ketones, Urine Negative Negative mg/dL LAB URINALYSIS - AUTOMATED METHOD 02/25/2025 4:29 PM [facility] Urobilinogen, Urine 1.0 0.2 - 1.0 mg/dL LAB URINALYSIS - AUTOMATED METHOD 02/25/2025 4:29 PM [facility] Bilirubin, Urine Negative Negative LAB URINALYSIS - AUTOMATED METHOD 02/25/2025 4:29 PM [facility] Blood, Urine Trace(A) Negative LAB URINALYSIS - AUTOMATED METHOD 02/25/2025 4:29 PM [facility] RBC, Urine 0.9 0 - 4 /HPF LAB URINALYSIS - AUTOMATED METHOD 02/25/2025 4:29 PM [facility] WBC, Urine 0.7 0 - 4 /HPF LAB URINALYSIS - AUTOMATED METHOD 02/25/2025 4:29 PM [facility] Squamous Epithelial, Urine 1 0 - 60 /LPF LAB URINALYSIS - AUTOMATED METHOD 02/25/2025 4:29 PM [facility] Bacteria, Urine Negative Negative /HPF LAB URINALYSIS - AUTOMATED METHOD 02/25/2025 4:29 PM [facility] Hyaline Casts, Urine 0.0 0 - 3 /LPF LAB URINALYSIS - AUTOMATED METHOD 02/25/2025 4:29 PM EDT [facility] Urine Urine specimen obtained by clean catch procedure / Unknown Non-blood Collection / Unknown 02/25/2025 3:26 PM EDT 02/25/2025 3:38 PM EDT us Alex Boo MD LAB URINE ORDERABLES Final Re sult Performing Organization Address [facility]/ZIP Co de Phone Number [facility] [address] [place] [address], [place] [phone] * Cano urine culture tube (02/25/2025 3:26 PM EDT) Only the most recent of2 resultswithin the time period is included. Extra Tube Hold for add-ons. 02/26/2025 4:01 PM EDT [facility] Comment:Auto resulted. Urine Urine specimen obtained by clean catch procedure / Unknown Non-blood Collection / Unknown 02/25/2025 3:26 PM EDT 02/25/2025 3:38 PM EDT us Alex Boo MD LAB URINE ORDERABLES Final Re sult Performing Organization Address [facility]/ZIP Co de Phone Number [facility] [address] [place] [address], [place] [phone] * (ABNORMAL) Comprehensive metabolic panel (02/25/2025 3:20 PM EDT) Sodium 136 133 - 145 mmol/L LAB CHEMISTRY METHOD 02/25/2025 4:12 PM EDT [facility] Potassium 4.1 3.5 - 5.5 mmol/L LAB CHEMISTRY METHOD 02/25/2025 4:12 PM EDT [facility] Chloride 105 96 - 110 mmol/L LAB CHEMISTRY METHOD 02/25/2025 4:12 PM [facility] CO2 26 21 - 32 mmol/L LAB CHEMISTRY METHOD 02/25/2025 4:12 PM [facility] Anion Gap 5 3 - 11 LAB CHEMISTRY METHOD 02/25/2025 4:12 PM [facility] Glucose 133(H) 70 - 100 mg/dL LAB CHEMISTRY METHOD 02/25/2025 4:12 PM [facility] BUN 10 5 - 25 mg/dL LAB CHEMISTRY METHOD 02/25/2025 4:12 PM [facility] Creatinine 0.92 0.70 - 1.30 mg/dL LAB CHEMISTRY METHOD 02/25/2025 4:12 PM [facility] eGFR 108 >=60 mL/min/1. 73m2 LAB CHEMISTRY METHOD 02/25/2025 4:12 PM [facility] Comment:Calculation based on the Chronic Kidney Disease Epidemiology Collaboration (CKD-EPI) equation refit without adjustment for race. BUN/Creatinine Ratio 10.9 LAB CHEMISTRY METHOD 02/25/2025 4:12 PM [facility] Calcium 9.5 8.5 - 10.5 mg/dL LAB CHEMISTRY METHOD 02/25/2025 4:12 PM [facility] AST (SGOT) 15 10 - 42 unit/L LAB CHEMISTRY METHOD 02/25/2025 4:12 PM [facility] ALT (SGPT) 36 10 - 60 unit/L LAB CHEMISTRY METHOD 02/25/2025 4:12 PM [facility] Alkaline Phosphatase 104 42 - 121 unit/L LAB CHEMISTRY METHOD 02/25/2025 4:12 PM [facility] Total Protein 7.2 6.0 - 8.0 g/dL LAB CHEMISTRY METHOD 02/25/2025 4:12 PM [facility] Albumin 4.0 3.2 - 5.0 g/dL LAB CHEMISTRY METHOD 02/25/2025 4:12 PM EDT [facility] Total Bilirubin 0.8 0.0 - 1.4 mg/dL LAB CHEMISTRY METHOD 02/25/2025 4:12 PM EDT [facility] Blood Venous blood specimen / Unknown Venipuncture / Unknown 02/25/2025 3:20 PM EDT 02/25/2025 3:36 PM EDT us Alex Boo MD LAB BLOOD ORDERABLES Final Re sult [facility] [address] [place] [address], [place] [phone] * [place] Scrotum and Contents (02/25/2025 3:13 [...] Signed Date: 02/25/2025 15:41 ET Workstation ID: [id number] Transcribed By: Self Edit Transcribed Date: 02/25/2025 [...] Signed Date: 02/25/2025 15:41 ET Workstation ID: [id number] Transcribed By: Self Edit Transcribed Date: 02/25/2025 15:40 ET Alex Boo MD IMG US PROCEDURES Final Resul t * POCT Glucose, blood (02/24/2025 3:40 AM EDT) Pathologist [facility] Glucose POCT 98 70 - 100 mg/dL 02/24/2025 3:41 AM EDT [facility] Blood Capillary blood specimen / Unknown 02/24/2025 3:40 AM EDT 02/24/2025 3:42 AM EDT us Generic Provider Poct LAB POINT OF CARE TEST DOCKED DEVICE UNSOLICITED RESULTS Final Result [facility] [address] [place] [address], * Culture urine (02/23/2025 10:46 PM EDT) Culture, Urine 50,000-99,000 CFU/mL Mixed urogenital cait, no uropathogens present. Suggest repeat specimen if clinically indicated. 02/25/2025 9:47 AM EDT [facility] Urine Urine specimen obtained by clean catch procedure / Unknown Non-blood Collection / Unknown 02/23/2025 10:46 PM EDT 02/23/2025 11:22 PM EDT Macario Quan MD LAB MICROBIOLOGY - GENERAL O RDERABLES Final Result [facility] [address] [place] [address], * HIV Screening (11/12/2022) HIV Screening abstracted Historical Provider HEALTH MAINTENANCE Final Result * Hepatitis C Screening (11/12/2022) Hepatitis C Screening abstracted Historical Provider HEALTH [...] Most Recently Relevant to Health Maintenance Insurance [facility] Advance Directives * Full Code - [...] currently active code status orders. Care Teams Tunnel Worker Relationship Specialty Start Date End Date Kira Blandon MD [address] [place] [id number] PCP - General 08/26/23
== END 2025-04-26 14:52 | disposition home or self-care (01) ==
LOC: HO.HUSH 13:45
PROVIDERS: PCP Nurse Practitioner Family; Visit Provider Nurse Practitioner Family
DX: N45.1 Epididymitis (principal); N50.89 Other specified disorders of the male genital organs
CPT/HCPCS: 99204

== ENCOUNTER 2025-04-26 13:44 | Outpatient (REF) | payer OTHER, SELFPAY | END 2025-04-26 13:45 | disposition home or self-care (01) | LOC: HO.LAB 13:44 | PROVIDERS: PCP Nurse Practitioner Family; Visit Provider Nurse Practitioner Family | DX: N45.1 Epididymitis (principal); N50.89 Other specified disorders of the male genital organs; R31.29 Other microscopic hematuria; Z79.899 Other long term (current) drug therapy | CPT/HCPCS: 81003; 88112; 99202 ==

== ENCOUNTER 2025-07-06 12:47 | Outpatient (AMB) | payer OTHER, SELFPAY ==
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
--- OUTSIDE RECORDS SUMMARY | 2025-07-06 15:55 | XMS_ITS | Encounter Summary ---
Author Organization [facility] Address [address] [facility] [address] [place] [id number] Phone Care Team Providers Care Sub Master Name Role Phone Isamar Plummer MD Primary Care Provider Brigitte Reyes NP Primary Care Provider + Encounter Details Date Type Department Care Team (Late st Contact Info) Description 06/29/2024 Procedure Pass [facility] [address] [place] [address] Social History Tobacco Use Types Packs/Day Years [...] with a working camera? Not on file Intimate Partner Violence Answer Date R ecorded Are you denied basic needs s uch as food, clothing, or medical care? No 06/29/2024 In the past 12 months have y ou been in a relationship with a person who hurts, threatens, or tries to control you? No 06/29/2024 Are you denied basic needs s uch as food, clothing, or medical care? No 06/29/2024 In the past 12 months have y ou been in a relationship with a person who hurts, threatens, or tries to control you? No 06/29/2024 Sex and Gender Information Value Date Recorded [...] on filedocumented in this encounter Care Teams Sub Master Relationship Specialty Start Date End Date Isamar Plummer MD PCP - General Family Medicine 09/01/23 10/12/24 Brigitte Reyes NP [address] [place] [id number] PCP - General Nurse Practitioner 10/13/24 documented as of this encounter Additional Source Comments The information contained in this document represents components of the legal health record. It is not the complete legal health record.[facility]
--- OUTSIDE RECORDS SUMMARY | 2025-07-06 15:55 | XMS_ITS | Encounter Summary ---
Author Organization [facility] Address [address] [facility] [address] [place] [phone] Phone Care Team Providers Care Weir Fisherman Name Role Phone Isamar Plummer MD Primary Care Provider Brigitte Reyes NP Primary Care Provider + Encounter Details Date Type Department Care Team (Late st Contact Info) Description 06/28/2024 Ophth Exam [facility] Emergency Department [address] [place] [address] Jeni Davis MD [address] [place] [address] [email or web address] Social History Tobacco Use Types Packs/Day Years [...] PM EDT documented as of this encounter Functional Status * Calculated C-SSRS Risk Score (Lifetime/Recent) Answer Date of Assessment Author No Risk Indicated 06/28/2024 12:52 PM EDT Johan Solitario RN * [place] Suicide Severity Rating Scale (Screener/Recent Self-Report) Question Answer Date of Assessment Author 1. Wish to be (Past 1 Month) No 024 12:52 PM EDT Johan Solitario RN 2. Non-Specific Active Suici darci Thoughts (Past 1 Month) No 06/28/2024 12:52 PM EDT Hamida Solitario RN 6. Suicidal Behavior (Lifetime) No 12:52 PM EDT Johan Solitario RN documented as of this encounter Plan of Treatment Not on file documented as of this encounter Visit Diagnoses Not on filedocumented in this encounter Care Teams Weir Fisherman Relationship Specialty Start Date End Date Isamar Plummer MD PCP - General Family Medicine 09/01/23 10/12/24 Brigitte Reyes NP [address] [place] [id number] PCP - General Nurse Practitioner 10/13/24 documented as of this encounter Additional Source Comments The information contained in this document represents components of the legal health record. It is not the complete legal health record.[facility]
--- OUTSIDE RECORDS SUMMARY | 2025-07-06 15:55 | XMS_ITS | Clinical Summary ---
Author Organization [facility] Address [address] [address] Phone Care Team Providers Care Densitometrist Name Role Phone Brigitte Reyes RETROFIT INSTALLER Primary Care Provider + Allergies No known active allergies Medications LUMIGAN 0.01 % Drop INSTILL 1 DROP INTO BOTH EYES EVERY NIGHT AT BEDTIME 10/19/2023 Active brimonidine (ALPHAGAN) 0.2 % ophthalmic solution 1 drop 2 (two) times a day. 01/04/2024 Active cyclobenzaprine (FLEXERIL) 5 MG tablet TAKE 1 TABLET BY MOUTH AT BEDTIME FOR MUSCLE SPASM 12/21/2023 Active dorzolamide-areli oloL (COSOPT) 22.3-6.8 mg/mL ophthalmic solution 1 drop 2 (two) times a day. 11/11/2023 Active ENBREL SURECLICK 50 mg/mL (1 mL) PnIj 12/21/2023 Active sodium chloride (OCEAN) 0.65 % nasal spray 1 spray by Nasal route as needed for congestion. Active prednisoLONE acetate (PRED FORTE) 1 % ophthalmic suspension Place 1 drop into the right eye 4 (four) times a day. 5 mL 2 06/29/2024 Active pilocarpine (ISOPTO CARPINE) 2 % ophthalmic solution Place 1 drop into the left eye daily. Active Active Problems Problem Noted Date Diagnosed Date Primary open angle glaucoma of right eye, severe stage 10/21/2024 Social History Tobacco Use Types Packs/Day Years Used Date Smoking Tobacco: Never Smokeless Tobacco: Never Tobacco Cessation:Counseling Given: Not Answered Alcohol Use Standard Drinks/Week Comments Never 0 [...] not to disclose 2023 12:57 PM EDT Last Filed Vital Signs Vital Sign Reading Time Taken Comments Blood Pressure 121/76 06/29/2024 9:51 PM EDT Pulse 92 06/29/2024 9:29 PM EDT Temperature 36.7 C (98 F) 06/29/2024 9:51 PM EDT Respiratory Rate 20 06/29/2024 9:29 PM EDT Oxygen Saturation 94% 06/29/2024 9:51 PM EDT Inhaled Oxygen Concentration - - Weight 181.4 kg (400 lb) 06/28/2024 12:49 PM EDT Height 177.8 cm (5' 10 ) 06/28/2024 12:49 PM EDT Body Mass Index 57.39 06/28/2024 12:49 PM EDT Plan of Treatment Health Maintenance Due Date Last Done Comments DEPRESSION SCREENING 1997 PNEUMOCOCCAL VACCINES (0-49 years) (1 of 2 - PCV) 01/16/2004 LIPID PANEL 04/27/2018 04/27/2013 SCREENING FOR DIABETES 01/16/2020 INFLUENZA VACCINE (#1) 2025 , 10/04/2021, 05/21/2019, Additional history exists COVID-19 VACCINE (4 - 2024- season) 2025 10/04/2021, 02/16/2021, 01/26/2021 Adult Td,Tdap Booster 05/07/2031 05/07/2021 , 05/16/2008, 05/03/1997 MENINGOCOCCAL VACCINES (ACWY) Aged Out 01/30/2005 No longer eligible based on patient's age to complete this topic HEPATITIS C SCREENING Completed 06/29/2024 HIV ONE-TIME SCREENING (18-65 YEARS) Completed 06/29/2024 SMOKING STATUS SCREENING (Once After 26 Yrs) Completed 10/21/2024 HEPATITIS A VACCINES Aged Out No long er eligible based on patient's age to complete this topic HIB VACCINES Aged Out No longer eligi ble based on patient's age to complete this topic MENINGOCOCCAL VACCINES (B) Aged Out N o longer eligible based on patient's age to complete this topic Medical Devices Implanted Type Area Airway Traffic Controller Device Identifier Shelf Expiration Date Model / Serial / Lot Tube Ophthalmological Device Drainage Ahmed Clearpath 250 - [id number] Implanted:Qty: 1 on 06/29/2024 by Greta Tompkins MD, MPhil at [facility] Right: Eye [employer] 11/20/2025 CP 250 / [id number] / [id number] Graft Allograft 9mm Tanzgraft Spilt Thickness [place] - [id number] Implanted:Qty: 1 on 06/29/2024 by Greta Tompkins MD, MPhil at [facility] Right: Eye [employer] 11/11/2025 [id number] / [id number] / [id number] Procedures Procedure Name Priority Date/Time Associated Diagnosis Comments HEPATITIS C VIRAL LOAD (PCR) Routine 06/29/2024 9:40 PM EDT from Last 3 Months or Most Recently Relevant to Health Maintenance Results * Hepatitis C viral load (PCR) (06/29/2024 9:40 PM EDT) HCV RNA PCR Not Detected Not Detected IU/mL [facility] Comment: (NOTE) Assay Range: 15-100,000,000 IU/ml In rare instances, there might be a 1.0 - 1.5 log increase measured viral load observed in individuals with genotype 3a and 4. Please refer any questions to the Molecular Diagnostics Lab at extension [phone]. This is a quantitative assay utilizing real-time PCR technology. Results of this test may be clinically useful in monitoring a patient's clinical course or response to antiviral therapy but should not be used to make the diagnosis of HCV infection. A test result of less than the lower limit of quantification (LLoQ)(<15 IU/mL) should be interpreted as HCV RNA not quantifiable but does not exclude the diagnosis of HCV infection. 06/29/2024 9:40 PM EDT 06/29/2024 10:19 PM EDT us Greta Tompkins MD, MPhil NON CULTURE MICR OBIOLOGY Final Result [address] [id number] from Last 3 Months or Most Recently Relevant to Health Maintenance Insurance [employer] [facility] [employer] [address] [address] [place], [place] [id number] ALLANCE ACO [facility]ANCE ACO [facility] ALLANCE ACO [facility] [place] [id number] Care Teams Densitometrist Relationship Specialty Start Date End Date Brigitte Reyes NP [address] [facility] 2 [place] [address] PCP - General Nurse Practitioner 10/13/24 Additional Source Comments The information contained in this document represents components of the legal health record. It is not the complete legal health record.[facility]
--- OUTSIDE RECORDS SUMMARY | 2025-07-06 15:55 | XMS_ITS | Encounter Summary ---
Author Organization [facility] Address [address] [facility] [address] [place] [phone] Phone Care Team Providers Care Protection Mgr Name Role Phone Isamar Plummer MD Primary Care Provider Brigitte Reyes NP Primary Care Provider + Encounter Details Date Type Department Care Team ([facility] st Contact Info) Description 06/29/2024 Prep for Surgery [facility] [address] [place] [address] Chioma Velez MD [address] [place] [address] [email or web address] 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) Social History Tobacco Use Types [...] as of this encounter Plan of Treatment Scheduled Orders Name Type Priority Associated Diagnoses Orde r Schedule Non-IOL Implant Order Form Ophthalmology Routine 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) Expected: 06/29/2024 (Approximate), Expires: 06/29/2025 documented as of this encounter Visit Diagnoses Diagnosis 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 It is not the complete legal health record.[facility]
--- OUTSIDE RECORDS SUMMARY | 2025-07-06 15:55 | XMS_ITS | Encounter Summary ---
Author Organization [facility] Address 399 [facility] [address] [place] [address] Phone Care Team Providers Care Vapor Coater Name Role Phone Isamar Plummer MD Primary Care Provider Brigitte Reyes NP Primary Care Provider + Encounter Details Date Type Department Care Team (Late st Contact Info) Description 01/25/2024 Procedure Pass [facility] PERIOP DEPT [address] [place] [address] Social History Tobacco Use Types Packs/Day Years [...] on filedocumented in this encounter Care Teams Vapor Coater Relationship Specialty Start Date End Date Isamra Plummer MD PCP - General Family Medicine 09/01/23 10/12/24 Brigitte Reyes NP [address] [place] [id number] PCP - General Nurse Practitioner 10/13/24 documented as of this encounter Additional Source Comments The information contained in this document represents components of the legal health record. It is not the complete legal health record.[facility]
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
== END 2025-07-06 13:30 | disposition home or self-care (01) ==
LOC: HO.HOP 12:47
PROVIDERS: PCP Nurse Practitioner Family; Visit Provider Clinical Nurse Specialist Psychiatric/Mental Health, Adult
DX: F43.10 Post-traumatic stress disorder, unspecified (principal); F41.1 Generalized anxiety disorder; F31.81 Bipolar II disorder
CPT/HCPCS: 99213

== ENCOUNTER 2025-07-06 13:29 | Outpatient (REF) | payer OTHER, SELFPAY ==
--- NOTE | ~2025-07-06 | US_ITS ---
CLINICAL HISTORY: N45.1 - Epididymitis US Scrotum with Doppler Comparison: None provided Findings: Right testicle normal echotexture, 4.4 x 2.9 x 3.1 cm. Left testicle normal echotexture, 4.3 x 2.5 x 2.9 cm. Normal color flow and arterial/venous spectral tracing of both testicles. Epididymides are unremarkable. No varicoceles. Bilateral hydroceles. IMPRESSION: Bilateral hydroceles. No evidence of torsion. This document has been electronically signed by: Pepito Chiang MD on 07/07/2025 11:59:08
== END 2025-07-06 13:30 | disposition home or self-care (01) ==
LOC: HO.US 13:29
PROVIDERS: PCP Nurse Practitioner Family; Visit Provider Nurse Practitioner Family
DX: N45.1 Epididymitis (principal); N50.89 Other specified disorders of the male genital organs; F43.10 Post-traumatic stress disorder, unspecified; F41.1 Generalized anxiety disorder; F31.81 Bipolar II disorder
CPT/HCPCS: 76870; 99212

== ENCOUNTER → 2025-07-06 13:31 | Outpatient (BNV) | payer OTHER, SELFPAY | PROVIDERS: PCP Nurse Practitioner Family; Visit Provider Specialist | DX: N43.3 Hydrocele, unspecified (principal) | CPT/HCPCS: 76870 ==

== ENCOUNTER 2025-07-20 14:06 | Outpatient (AMB) | payer OTHER, SELFPAY ==
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
--- OUTSIDE RECORDS SUMMARY | 2025-07-20 17:10 | XMS_ITS | Clinical Summary ---
Author Organization [facility] Address [address] [address] Phone Care Team Providers Care Emergency Department Coordinator Name Role Phone Brigitte Reyes FORMING ROLL OPERATOR Primary Care Provider + Allergies No known [...] this topic Medical Devices Implanted Type Area Meat Puller Device Identifier Shelf Expiration Date Model / Serial / Lot Tube Ophthalmological Device Drainage Ahmed Clearpath 250 - [id number] Implanted:Qty: 1 on 06/29/2024 by Greta Tompkins MD, MPhil at [facility] Right: Eye [employer] 11/20/2025 CP 250 / [id number] / [id number] Graft Allograft 9mm Tanzgraft Spilt Thickness [place] - [id number] Implanted:Qty: 1 on 06/29/2024 by Greta Tompkins MD, MPhil at [facility] Right: Eye [employer] 11/11/2025 [id number] / [id number] / [id number] Procedures Procedure Name Priority Date/Time Associated Diagnosis Comments HEPATITIS C VIRAL LOAD (PCR) Routine 06/29/2024 9:40 PM EDT from Last 3 Months or Most Recently Relevant to Health Maintenance Results * Hepatitis C viral load (PCR) (06/29/2024 9:40 PM EDT) HCV RNA PCR Not Detected Not Detected IU/mL [facility] Comment: (NOTE) Assay Range: 15-100,000,000 IU/ml In rare instances, there might be a 1.0 - 1.5 log increase measured viral load observed in individuals with genotype 3a and 4. Please refer any questions to the Molecular Diagnostics Lab at extension [phone]. This is a quantitative assay utilizing real-time [...] MPhil NON CULTURE MICR OBIOLOGY Final Result [address] [id number] from Last 3 Months or Most Recently Relevant to Health Maintenance Insurance [employer] [facility] [employer] [address] [address] [place], [place] [id number] ALLANCE ACO [facility] ALLANCE ACO [facility] ALLANCE ACO [facility] [place] [id number] Care Teams Emergency Department Coordinator Relationship Specialty Start Date End Date Brigitte Reyes NP [address] [facility] 2 [place] [address] PCP - General Nurse Practitioner 10/13/24 Additional Source Comments The information contained in this document represents components of the legal health record. It is not the complete legal health record.[facility]
--- OUTSIDE RECORDS SUMMARY | 2025-07-20 17:10 | XMS_ITS | Encounter Summary ---
Author Organization [facility] Address [address] [facility] [address] [place] [address] Phone Care Team Providers Care Senior Product Marketing Manager Name Role Phone Isamar Plummer MD Primary Care Provider Brigitte Reyes NP Primary Care Provider + Encounter Details Date Type Department Care Team (Late st Contact Info) Description 06/29/2024 Procedure Pass [facility] PERIOP DEPT [address] [place] [address] Social History Tobacco Use Types Packs/Day Years [...] on filedocumented in this encounter Care Teams Senior Product Marketing Manager Relationship Specialty Start Date End Date Isamar Plummer MD PCP - General Family Medicine 09/01/23 10/12/24 Brigitte Reyes NP [address] [place] [address] PCP - General Nurse Practitioner 10/13/24 documented as of this encounter Additional Source Comments The information contained in this document represents components of the legal health record. It is not the complete legal health record.[facility]
--- OUTSIDE RECORDS SUMMARY | 2025-07-20 17:10 | XMS_ITS | Encounter Summary ---
Author Organization [facility] Address [address] [facility] [address] [place] [address] Phone Care Team Providers Care Recycling Collections Driver Name Role Phone Isamar Plummer MD Primary Care Provider Brigitte Reyes NP Primary Care Provider + Encounter Details Date Type Department Care Team (Late st Contact Info) Description 06/28/2024 Ophth Exam [facility] Emergency Department [address] [place] [address] Jeni Davis MD [address] [place] [address] [email or web address] Social History Tobacco Use Types Packs/Day Years [...] 12:52 PM EDT Johan Solitario RN * [place] Suicide Severity Rating Scale (Screener/Recent Self-Report) Question [...] on filedocumented in this encounter Care Teams Recycling Collections Driver Relationship Specialty Start Date End Date Isamar Plummer MD PCP - General Family Medicine 09/01/23 10/12/24 Brigitte Reyes NP [address] [place] [address] PCP - General Nurse Practitioner 10/13/24 documented as of this encounter Additional Source Comments The information contained in this document represents components of the legal health record. It is not the complete legal health record.[facility]
--- OUTSIDE RECORDS SUMMARY | 2025-07-20 17:10 | XMS_ITS | Encounter Summary ---
Author Organization [facility] Address [address] [facility] [address] [place] [address] Phone Care Team Providers Care Solution Strategist Name Role Phone Isamar Plummer MD Primary Care Provider Brigitte Reyes NP Primary Care Provider + Encounter Details Date Type Department Care Team (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 It is not the complete legal health record.[facility]
--- OUTSIDE RECORDS SUMMARY | 2025-07-20 17:10 | XMS_ITS | Clinical Summary ---
Author Organization [address] [place] [address] [place] [phone] Phone Care Team Providers Care Interceptor Operator Name Role Phone Kira Blandon MD Primary [...] Immunization Administration Dates Next Due Hepatitis B (Infquoi-M-Tojeo , Recombivax HB-Adult) 19yo and older 05/12/2013 [...] History Surgery Date Site/Laterality Comments COLONOSCOPY 06/29/09 [facility] PROCEDURE: HISTORICAL COLONOSCOPY; COMMENT: normal ESOPHAGOGASTRODUODENOSCOPY [facility] PROCEDURE: [place] ESOPHAGOGASTRODUODENOSCOPY TRANSORAL DIAGNOSTIC; COMMENT: normal Medical History [...] * HIV Screening (11/12/2022) HIV Screening abstracted [facility] Provider MD HEALTH MAINTENANCE Final Result * Hepatitis C Screening (11/12/2022) Hepatitis C Screening abstracted [facility] Provider MD HEALTH MAINTENANCE Final Result * [...] Most Recently Relevant to Health Maintenance Insurance [facility] Advance Directives * Full Code - [...] currently active code status orders. Care Teams Interceptor Operator Relationship Specialty Start Date End Date Kira Blandon MD [address] [place] [address] PCP - General 08/26/23
--- OUTSIDE RECORDS SUMMARY | 2025-07-20 17:10 | XMS_ITS | Encounter Summary ---
Author Organization [facility] Address [address] [facility] [address] [place] [address] Phone Care Team Providers Care Circuit Rider Name Role Phone Isamar Plummer MD Primary Care Provider Brigitte Reyes NP Primary Care Provider + Encounter Details Date Type Department Care Team (Late st Contact Info) Description 01/25/2024 Procedure Pass [facility] PERIOP DEPT [address] [place] [address] Social History Tobacco Use Types Packs/Day Years [...] on filedocumented in this encounter Care Teams Circuit Rider Relationship Specialty Start Date End Date Isamar Plummer MD PCP - General Family Medicine 09/01/23 10/12/24 Brigitte Reyes NP [address] [place] [address] PCP - General Nurse Practitioner 10/13/24 documented as of this encounter Additional Source Comments The information contained in this document represents components of the legal health record. It is not the complete legal health record.[facility]
== END 2025-07-20 14:34 | disposition home or self-care (01) ==
LOC: HO.HUSH 14:07
PROVIDERS: PCP Nurse Practitioner Family; Visit Provider Nurse Practitioner Family
DX: N50.89 Other specified disorders of the male genital organs (principal); N43.3 Hydrocele, unspecified; Z13.9 Encounter for screening, unspecified
CPT/HCPCS: 99213

== ENCOUNTER 2025-07-20 14:06 | Outpatient (REF) | payer OTHER, SELFPAY | END 2025-07-20 14:07 | disposition home or self-care (01) | LOC: HO.LNP 14:06 | PROVIDERS: PCP Nurse Practitioner Family; Visit Provider Nurse Practitioner Family | DX: N50.89 Other specified disorders of the male genital organs (principal); N43.3 Hydrocele, unspecified; Z13.89 Encounter for screening for other disorder | CPT/HCPCS: 81003; 88112; 99212 ==

== ENCOUNTER 2025-08-01 15:02 | Outpatient (AMB) | payer OTHER, SELFPAY ==
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
[2025-08-01 15:15] VITALS: BP 134/82; PULSE 87; O2SAT 98; BMI 57.9
--- OUTSIDE RECORDS SUMMARY | 2025-08-01 16:44 | XMS_ITS | Clinical Summary ---
Author Organization [address] [place] [address] [place] [phone] Phone Care Team Providers Care Asbestos Abatement Technician Name Role Phone Kira Blandon MD Primary [...] Immunization Administration Dates Next Due Hepatitis B (Olmltfe-T-Ukvti , Recombivax HB-Adult) 19yo and older 05/12/2013 [...] History Surgery Date Site/Laterality Comments COLONOSCOPY 06/29/09 [facility] PROCEDURE: HISTORICAL COLONOSCOPY; COMMENT: normal ESOPHAGOGASTRODUODENOSCOPY [facility] PROCEDURE: [place] ESOPHAGOGASTRODUODENOSCOPY TRANSORAL DIAGNOSTIC; COMMENT: normal Medical History [...] * HIV Screening (11/12/2022) HIV Screening abstracted [facility] Provider MD HEALTH MAINTENANCE Final Result * Hepatitis C Screening (11/12/2022) Hepatitis C Screening abstracted [facility] Provider MD HEALTH MAINTENANCE Final Result * [...] Most Recently Relevant to Health Maintenance Insurance [facility] [place] [phone] Advance Directives * Full Code - Default [...] currently active code status orders. Care Teams Asbestos Abatement Technician Relationship Specialty Start Date End Date Kira Blandon MD [address] [place] [phone] PCP - General 08/26/23
--- OUTSIDE RECORDS SUMMARY | 2025-08-01 16:44 | XMS_ITS | Clinical Summary ---
Author Organization [facility] Address [address] [address] Phone Care Team Providers Care Dictaphone Technician Name Role Phone Brigitte Reyes ENGINEERING ASSISTANT Primary Care Provider + Allergies No known [...] 10/04/2021, 05/21/2019, Additional history exists COVID-19 VACCINE ( - 2024- season) 2025 10/04/2021, 02/16/2021, 01/26/2021 Adult Td,Tdap Booster 05/07/2031 05/07/2021 , 05/16/2008, 05/03/1997 MENINGOCOCCAL VACCINES (ACWY) Aged Out 01/30/2005 No longer eligible based on patient's age to complete this topic HEPATITIS C SCREENING Completed 06/29/2024, 024 HIV ONE-TIME SCREENING (18-65 YEARS) Completed 06/29/2024 SMOKING STATUS SCREENING (Once After 26 Yrs) Completed 10/21/2024 HEPATITIS A VACCINES Aged Out No long er eligible based on patient's age to complete this topic HIB VACCINES Aged Out No longer eligi ble based on patient's age to complete this topic IPV VACCINES Aged Out No longer eligi ble based on patient's age to complete this topic MENINGOCOCCAL VACCINES (B) Aged Out N o longer eligible based on patient's age to complete this topic Medical Devices Implanted Type Area Legislative Correspondent Device Identifier Shelf Expiration Date Model / Serial / Lot Tube Ophthalmological Device Drainage Ahmed Clearpath 250 - [id number] Implanted:Qty: 1 on 06/29/2024 by Greta Tompkins MD, MPhil at [facility] Eye and Ear Right: Eye [employer] 11/20/2025 CP 250 / [id number] / [id number] Graft Allograft 9mm Tanzgraft Spilt Thickness Inger - [id number] Implanted:Qty: 1 on 06/29/2024 by Greta Tompkins MD, MPhil at [facility] Ear Right: Eye [employer] 11/11/2025 [id number] / [id number] / [id number] Procedures Procedure Name Priority Date/Time Associated Diagnosis Comments HEPATITIS C VIRAL LOAD, PCR Routine 06/29/2024 9:40 PM EDT from Last 3 Months or Most Recently Relevant to Health Maintenance Results * Hepatitis C viral load (PCR) (06/29/2024 9:40 PM EDT) HCV RNA PCR Not Detected Not Detected IU/mL [facility] Comment: (NOTE) Assay Range: 15-100,000,000 IU/ml In rare instances, there might be a 1.0 - 1.5 log increase measured viral load observed in individuals with genotype 3a and 4. Please refer any questions to the Molecular Diagnostics Lab at extension [phone]. This is a quantitative assay utilizing real-time [...] PM EDT us Greta Tompkins MD, MPhil LAB BLOOD BKR OR DERABLES Final Result [facility] [address] [place] [address] from Last 3 Months or Most Recently Relevant to Health Maintenance Insurance [facility] [employer] [place] [address] [address] [place] [address] [address] [place], [place] [address] [facility] Care Teams Dictaphone Technician Relationship Specialty Start Date End Date Brigitte Reyes NP [address] [place] [address] [address] [place] [address] PCP - General Nurse Practitioner 10/13/24 Additional Source Comments The information contained in this document represents components of the legal health record. It is not the complete legal health record.[facility]
--- OUTSIDE RECORDS SUMMARY | 2025-08-01 16:44 | XMS_ITS | Encounter Summary ---
Author Organization [facility] Address [address] [facility] [address] [place] [phone] Phone Care Team Providers Care Coat Padder Name Role Phone Isamar Plummer MD Primary Care Provider Brigitte Reyes NP Primary Care Provider + Encounter Details Date Type Department Care Team (Late st Contact Info) Description 06/28/2024 Ophth Exam [facility] Emergency Department [address] [place] [address] Jeni Davis MD [address] [place] [address] [email or web address] Social History Tobacco Use Types Packs/Day Years [...] 12:52 PM EDT Johan Solitario RN * [place] Suicide Severity Rating Scale (Screener/Recent Self-Report) Question [...] on filedocumented in this encounter Care Teams Coat Padder Relationship Specialty Start Date End Date Isamar Plummer MD PCP - General Family Medicine 09/01/23 10/12/24 Brigitte Reyes NP [address] [place] [address] PCP - General Nurse Practitioner 10/13/24 documented as of this encounter Additional Source Comments The information contained in this document represents components of the legal health record. It is not the complete legal health record.[facility]
--- OUTSIDE RECORDS SUMMARY | 2025-08-01 16:44 | XMS_ITS | Encounter Summary ---
Author Organization [facility] Address [address] [facility] [address] [place] [address] Phone Care Team Providers Care Upholsterer Limousine And Hearse Name Role Phone Isamar Plummer MD Primary Care Provider Brigitte Reyes NP Primary Care Provider + Encounter Details Date Type Department Care Team (Late st Contact Info) Description 06/29/2024 Procedure Pass [facility] PERIOP DEPT [address] [place] [address] Social History Tobacco Use Types Packs/Day Years [...] on filedocumented in this encounter Care Teams Upholsterer Limousine And Hearse Relationship Specialty Start Date End Date Isamar Plummer MD PCP - General Family Medicine 09/01/23 10/12/24 Brigitte Reyes NP [address] [place] [phone] PCP - General Nurse Practitioner 10/13/24 documented as of this encounter Additional Source Comments The information contained in this document represents components of the legal health record. It is not the complete legal health record.[facility]
--- OUTSIDE RECORDS SUMMARY | 2025-08-01 16:44 | XMS_ITS | Encounter Summary ---
Author Organization [facility] Address [address] [facility] [address] [place] [phone] Phone Care Team Providers Care Survey Director Name Role Phone Isamar Plummer MD Primary Care Provider Brigitte Reyes NP Primary Care Provider + Encounter Details Date Type Department Care Team (Late st Contact Info) Description 01/25/2024 Procedure Pass [facility] [address] [place] [address] Social History Tobacco Use Types Packs/Day Years [...] on filedocumented in this encounter Care Teams Survey Director Relationship Specialty Start Date End Date Isamar Plummer MD PCP - General Family Medicine 09/01/23 10/12/24 Brigitte Reyes NP [address] [place] [id number] PCP - General Nurse Practitioner 10/13/24 documented as of this encounter Additional Source Comments The information contained in this document represents components of the legal health record. It is not the complete legal health record.[facility]
--- OUTSIDE RECORDS SUMMARY | 2025-08-01 16:44 | XMS_ITS | Encounter Summary ---
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 It is not the complete legal health record.[facility]
== END 2025-08-01 15:44 | disposition home or self-care (01) ==
LOC: HO.RHES 15:03
PROVIDERS: PCP Nurse Practitioner Family; Visit Provider Student in an Organized Health Care Education/Training Program
DX: M06.09 Rheumatoid arthritis without rheumatoid factor, multiple sites (principal); M15.9 Polyosteoarthritis, unspecified; Z51.81 Encounter for therapeutic drug level monitoring; Z79.620 Long term (current) use of immunosuppressive biologic
CPT/HCPCS: 99214

== ENCOUNTER 2025-08-01 15:02 | Outpatient (REF) | payer OTHER, SELFPAY ==
[2025-08-01 17:33] LABS: MANUAL DIFF FLAG NO
[2025-08-01 17:48] LABS: Hematocrit 40.7 % (42.0-52.0); Hemoglobin 13.7 g/dl (14.0-18.0); Imm Gran Abs Auto 0.02 X10*3/uL (0.00-0.03); Imm Gran Pct Auto 0.3 % (0.0-0.4); Lymphocytes Absolute Auto 2.3 X10*3/uL (1.2-4.9); Mean Corpuscular HGB Conc 33.7 g/dl (31.0-36.0); Mean Corpuscular Hemoglobin 27.2 pg (27.0-33.0); Mean Corpuscular Volume 80.9 fL (80.0-98.0); NRBC Abs Auto 0.000 X10*3/uL (0.0-0.012); NRBC Pct Auto 0.0 /100WBC (0.0-0.2); Platelet Count 222 X10*3/uL (160-400); Red Blood Count 5.03 X10*6/uL (4.60-5.80); White Blood Count 5.9 X10*3/uL (4.8-10.8)
[2025-08-01 18:03] LABS: Alanine Aminotransferase 27 U/L (0-40); Albumin Level 5.4 g/dL (3.5-5.0); Alkaline Phosphatase 71 U/L (39-117); Anion Gap 6 (12-20); Aspartate Amino Transferase 27 U/L (5-37); Blood Urea Nitrogen 13 mg/dL (9-16); Calcium 10.1 mg/dL (8.4-10.2); Carbon Dioxide 30 mmol/L (22-29); Chloride 107 mmol/L (96-108); Estimated Glomerular Filt Rate > 60; Potassium 4.0 mmol/L (3.3-5.1); Sodium 139 mmol/L (135-145); Total Protein 7.7 g/dL (6.5-8.0)
== END 2025-08-01 15:03 | disposition home or self-care (01) ==
LOC: HO.HKASLDS 15:02
PROVIDERS: PCP Nurse Practitioner Family; Visit Provider Student in an Organized Health Care Education/Training Program
DX: M13.89 Other specified arthritis, multiple sites (principal); Z51.81 Encounter for therapeutic drug level monitoring; Z79.620 Long term (current) use of immunosuppressive biologic
CPT/HCPCS: 36415; 80053; 85025; 85652; 86140; 99212

== ENCOUNTER 2025-08-30 08:54 | Outpatient (REF) | payer OTHER, SELFPAY ==
[2025-08-30 14:36] LABS: Resp Syncy Virus RNA Qual PCR NEGATIVE (Negative); SARS COV2 PCR INHOUSE POSITIVE (Negative)
== END 2025-08-30 08:55 | disposition home or self-care (01) ==
LOC: HO.LAB 08:54
PROVIDERS: PCP Nurse Practitioner Family; Visit Provider Physician Assistant
DX: J01.90 Acute sinusitis, unspecified (principal); B97.89 Other viral agents as the cause of diseases classified elsewhere; R09.89 Other specified symptoms and signs involving the circulatory and respiratory systems
CPT/HCPCS: 87637; 99212

== ENCOUNTER 2025-08-30 08:54 | Outpatient (AMB) | payer OTHER, SELFPAY ==
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
[2025-08-30 09:07] VITALS: BP 127/69; PULSE 81; TEMP 36.8; O2SAT 96; BMI 58.1
== END 2025-08-30 09:40 | disposition home or self-care (01) ==
LOC: HO.HMCWIS 08:54
PROVIDERS: PCP Nurse Practitioner Family; Visit Provider Physician Assistant
DX: J01.90 Acute sinusitis, unspecified (principal); B97.89 Other viral agents as the cause of diseases classified elsewhere